=== PATIENT | female | born 1955 | race Caucasian/White ===

== ENCOUNTER 2017-10-29 20:14 | Inpatient (IN) | payer MEDICARE, OTHER ==
[~2017-10-29] VITALS: Ht 157.5 cm; Wt 85.8 kg
[2017-10-29 20:51] LABS: BASOPHILS ABSOLUTE AUTO 0.06 K/mm3 (0.00-0.23); BASOPHILS PERCENT AUTO 0 % (0-2); EOSINOPHILS ABSOLUTE AUTO 0.01 K/mm3 (0.00-0.68); EOSINOPHILS PERCENT AUTO 0 % (0-6); Hematocrit 50.1 % (33.0-51.0); Hemoglobin 16.8 g/dL (11.5-16.0); IMMATURE GRAN ABSOLUTE AUTO 0.61 K/mm3 (0.00-0.10); IMMATURE GRAN PERCENT AUTO 3 % (0-1); LYMPHOCYTES ABSOLUTE AUTO 0.83 K/mm3 (0.84-5.20); LYMPHOCYTES PERCENT AUTO 4 % (21-46); MONOCYTES ABSOLUTE AUTO 2.15 K/mm3 (0.16-1.47); MONOCYTES PERCENT AUTO 11 % (4-13); Mean Corpuscular HGB 38.4 pg (26.0-34.0); Mean Corpuscular HGB Conc 33.5 g/dL (31.5-36.5); Mean Corpuscular Volume 115 fL (80-100); Mean Platelet Volume 9.5 fL (9.1-12.4); NEUTROPHILS ABSOLUTE AUTO 15.64 K/mm3 (1.96-9.15); NEUTROPHILS PERCENT AUTO 81 % (41-73); Platelet Count 142 K/mm3 (150-400); RDW Coefficient Variation 15.5 % (11.7-14.2); RDW Standard Deviation 65.8 fL (35.1-46.3); Red Blood Cell Count 4.37 M/mm3 (3.80-5.20)
[2017-10-29 20:53] LABS: Source, Urine Catheter
[2017-10-29 21:00] LABS: Appearance, Urine Clear (Clear); Bilirubin, Urine Neg (Neg); Blood, Urine 3+ (Neg); Color, Urine Yellow (P-Yellow); Glucose Qualitative, Urine Neg (Neg); Ketones, Urine 1+ (Neg); Leukocyte Esterase, Urine Neg (Neg); Nitrite, Urine Neg (Neg); Protein, Urine 3+ (Neg); Urobilinogen, Urine NORM (Normal)
[2017-10-29 21:04] LABS: International Normalized Ratio 1.33
[2017-10-29 21:08] LABS: Red Blood Cells, Urine 0-2 /hpf (0-2)
[2017-10-29 21:09] LABS: Amorphous Mod (0-Heavy); Squamous Epithelial Cells Rare /hpf (Few)
[2017-10-29 21:10] LABS: Bacteria Few /hpf
[2017-10-29 21:11] LABS: Alanine Aminotransfer (ALT/SGP 20 U/L (12-78); Albumin, Blood 3.4 g/dL (3.4-5.0); Albumin/Globulin Ratio 0.8 (0.8-1.8); Alk Phos 71 U/L (50-136); Anion Gap 7 mmol/L (6-16); Aspartate Aminotrans (AST/SGOT 26 U/L (12-37); Bilirubin, Total 1.4 mg/dL (0.1-1.0); Blood Urea Nitrogen 31 mg/dL (8-24); CO2, Blood 29 mmol/L (21-32); Calcium, Blood 10.1 mg/dL (8.5-10.1); Chloride, Blood 101 mmol/L (98-108); Creatinine, Blood 1.07 mg/dL (0.40-1.00); Ethanol (Alcohol), Blood, Med <3 mg/dL; Globulin, Blood 4.1 g/dL (2.2-4.0); Glomerular Filtration Rate 55 (60-); Glucose, Blood 128 mg/dL (70-99); Potassium, Blood 4.3 mmol/L (3.5-5.5); Sodium, Blood 137 mmol/L (136-145); Total Protein, Blood 7.5 g/dL (6.4-8.2)
[2017-10-29 21:17] LABS: U Amphetamine Screen Not Detected; U Barbituate Screen Not Detected; U Benzodiazapine Screen Not Detected; U Cannabinoids Screen DETECTED; U Cocaine Screen Not Detected; U Methadone Screen Not Detected; U Methamphetamine Screen Not Detected; U Opiates Screen Not Detected; U Phencyclidine Screen Not Detected
[2017-10-29 21:18] LABS: U Buprenorphine Screen Not Detected; U Oxycodone Screen Not Detected; U Propoxyphene Screen Not Detected
[2017-10-29 22:51] LABS: PO2 Arterial 72.8 mmHg (80-100); pH Blood Arterial 7.43 (7.35-7.45)
[2017-10-30 06:17] LABS: Influenza A Negative (NEGATIVE); Influenza B Negative (NEGATIVE)
[2017-10-30 08:58] LABS: Hematocrit 46.5 % (33.0-51.0); Hemoglobin 15.3 g/dL (11.5-16.0); Mean Corpuscular HGB 38.2 pg (26.0-34.0); Mean Corpuscular HGB Conc 32.9 g/dL (31.5-36.5); Mean Corpuscular Volume 116 fL (80-100); Mean Platelet Volume 9.8 fL (9.1-12.4); Platelet Count 132 K/mm3 (150-400); RDW Coefficient Variation 15.2 % (11.7-14.2); RDW Standard Deviation 66.1 fL (35.1-46.3); Red Blood Cell Count 4.01 M/mm3 (3.80-5.20); White Blood Cell Count 20.85 K/mm3 (4.00-11.30)
[2017-10-30 09:37] LABS: BAND PERCENT MAN 24 % (0-8); BASOPHILS PERCENT MAN 1 % (0-2); EOSINOPHILS PERCENT MAN 0 % (0-6); LYMPHOCYTES ABSOLUTE MAN 0.83 K/mm3 (0.84-5.20); LYMPHOCYTES PERCENT MAN 4 % (21-46); METAMYELOCYTE ABSOLUTE MAN 0.83 K/mm3 (0.00-0.00); METAMYELOCYTE PERCENT MAN 4 % (0-0); MONOCYTES ABSOLUTE MAN 0.83 K/mm3 (0.16-1.47); MONOCYTES PERCENT MAN 4 % (4-13); NEUTROPHILS ABSOLUTE MAN 18.13 K/mm3 (1.96-9.15); SEG NEUTROPHILS PERCENT MAN 63 % (41-73); TOTAL CELLS COUNTED 100
[2017-10-30 09:59] LABS: Alanine Aminotransfer (ALT/SGP 17 U/L (12-78); Albumin, Blood 2.6 g/dL (3.4-5.0); Albumin/Globulin Ratio 0.7 (0.8-1.8); Alk Phos 55 U/L (50-136); Anion Gap 8 mmol/L (6-16); Aspartate Aminotrans (AST/SGOT 18 U/L (12-37); Blood Urea Nitrogen 34 mg/dL (8-24); CO2, Blood 27 mmol/L (21-32); Calcium, Blood 8.8 mg/dL (8.5-10.1); Chloride, Blood 105 mmol/L (98-108); Creatinine, Blood 0.97 mg/dL (0.40-1.00); Globulin, Blood 3.8 g/dL (2.2-4.0); Glomerular Filtration Rate >60 (60-); Glucose, Blood 159 mg/dL (70-99); Potassium, Blood 3.9 mmol/L (3.5-5.5); Sodium, Blood 140 mmol/L (136-145); Total Protein, Blood 6.4 g/dL (6.4-8.2)
[2017-10-31] MEDS ORDERED: LISI5 PO (02:35)
[2017-10-31] MEDS ORDERED: METF500 PO (02:36)
[2017-10-31] MEDS ORDERED: FURO20 PO (02:37)
[2017-10-31] MEDS ORDERED: SPIR25 PO (02:38)
[2017-10-31] MEDS ORDERED: LEVSOD75 PO ×2 (02:39)
[2017-10-31] MEDS ORDERED: ABAT250V (02:39)
[2017-10-31 04:28] LABS: Hematocrit 44.7 % (33.0-51.0); Hemoglobin 14.7 g/dL (11.5-16.0); Mean Corpuscular HGB 38.1 pg (26.0-34.0); Mean Corpuscular HGB Conc 32.9 g/dL (31.5-36.5); Mean Corpuscular Volume 116 fL (80-100); Mean Platelet Volume 9.9 fL (9.1-12.4); Platelet Count 121 K/mm3 (150-400); RDW Standard Deviation 64.9 fL (35.1-46.3); Red Blood Cell Count 3.86 M/mm3 (3.80-5.20); White Blood Cell Count 16.27 K/mm3 (4.00-11.30)
[2017-10-31 04:44] LABS: Anion Gap 7 mmol/L (6-16); Blood Urea Nitrogen 37 mg/dL (8-24); Bun/Creatinine Ratio 37.8 (12.0-20.0); CO2, Blood 27 mmol/L (21-32); Calcium, Blood 9.3 mg/dL (8.5-10.1); Chloride, Blood 104 mmol/L (98-108); Creatinine, Blood 0.98 mg/dL (0.40-1.00); Glomerular Filtration Rate >60 (60-); Glucose, Blood 176 mg/dL (70-99); Potassium, Blood 3.8 mmol/L (3.5-5.5); Sodium, Blood 138 mmol/L (136-145)
[2017-11-01 05:31] LABS: BASOPHILS ABSOLUTE AUTO 0.03 K/mm3 (0.00-0.23); BASOPHILS PERCENT AUTO 0 % (0-2); EOSINOPHILS PERCENT AUTO 0 % (0-6); Hematocrit 46.7 % (33.0-51.0); IMMATURE GRAN ABSOLUTE AUTO 0.29 K/mm3 (0.00-0.10); IMMATURE GRAN PERCENT AUTO 2 % (0-1); LYMPHOCYTES ABSOLUTE AUTO 0.31 K/mm3 (0.84-5.20); LYMPHOCYTES PERCENT AUTO 2 % (21-46); MONOCYTES ABSOLUTE AUTO 0.83 K/mm3 (0.16-1.47); MONOCYTES PERCENT AUTO 5 % (4-13); Mean Corpuscular HGB 37.1 pg (26.0-34.0); Mean Corpuscular HGB Conc 32.1 g/dL (31.5-36.5); Mean Corpuscular Volume 116 fL (80-100); Mean Platelet Volume 10.1 fL (9.1-12.4); NEUTROPHILS ABSOLUTE AUTO 15.87 K/mm3 (1.96-9.15); NEUTROPHILS PERCENT AUTO 92 % (41-73); NRBC ABSOLUTE 0.02 K/mm3 (0.00-0.02); NRBC Auto 0.1 /100 WBC (0.0-0.2); Platelet Count 141 K/mm3 (150-400); RDW Coefficient Variation 14.8 % (11.7-14.2); Red Blood Cell Count 4.04 M/mm3 (3.80-5.20); White Blood Cell Count 17.33 K/mm3 (4.00-11.30)
[2017-11-01 05:56] LABS: Bun/Creatinine Ratio 39.2 (12.0-20.0); Calcium, Blood 9.6 mg/dL (8.5-10.1); Potassium, Blood 4.2 mmol/L (3.5-5.5)
[2017-11-02] MEDS ORDERED: ACET325 PO (12:14)
[2017-11-02] MEDS ORDERED: Q-Tussin100 MG/5 M PO (12:16)
[2017-11-02] MEDS ORDERED: DOCU100 PO (12:17)
[2017-11-02] MEDS ORDERED: Ipratr-Albuterol3 ML PO (12:19)
[2017-11-02] MEDS ORDERED: LEVFLO500 PO (12:19)
== END 2017-11-02 12:35 | disposition home or self-care (01) | DRG 871 ==
LOC: ER 20:14 → ICUW 22:23 → ERHOLD 22:23 → ER 22:23 → ERHOLD 10-30 04:56 → ICUW 10-30 04:56 → MEDS 10-31 15:36 → ENPENDDIS 11-02 10:00 → MEDS 11-02 12:35
PROVIDERS: Emergency Medicine; Hospitalist; Internal Medicine; Physician Assistant
PROC: 05HM33Z Insertion of Infusion Device into Right Internal Jugular Vein, Percutaneous Approach (ICD-10-PCS; principal; 2017-10-30)
PROC: B543ZZA Ultrasonography of Right Jugular Veins, Guidance (ICD-10-PCS; 2017-10-30)
DX: A41.9 Sepsis, unspecified organism (principal); R65.21 Severe sepsis with septic shock; J96.01 Acute respiratory failure with hypoxia; J18.9 Pneumonia, unspecified organism; G93.40 Encephalopathy, unspecified; J44.1 Chronic obstructive pulmonary disease with (acute) exacerbation; J44.0 Chronic obstructive pulmonary disease with (acute) lower respiratory infection; I50.9 Heart failure, unspecified; E11.22 Type 2 diabetes mellitus with diabetic chronic kidney disease; E66.9 Obesity, unspecified
CPT/HCPCS: 36415; 36556; 36600; 51701; 51702; 70450; 71045; 80048; 80053; 81001; 82803; 82947; 83605; 83880; 85025; 85027; 85610; 85730; 87040; 87070; 87086; 87205; 87804; 93005; 93010; 93306; 94640; 94660; 94667; 94760; 94761; 96361; 96365; 96367; 96375; 99285; C1751; G0480; J0456; J0696; J1650; J1956; J2310; J2930; J7030; J7050; J7060

== ENCOUNTER 2018-08-11 05:21 | Observation (INO) | payer MEDICARE, OTHER ==
[~2018-08-11] VITALS: Ht 160 cm; Wt 80.0 kg
[~2018-08-11 05:21] MED LIST: ABAT250V; ACET325 PO; ALBU90OI INH; ANORO ELLIPTA1 EACH INH; ATOR10 PO; Aspirin EC81 MG PO; DOCU100 PO; FURO20 PO; Ipratr-Albuterol3 ML PO; LEVFLO500 PO; LEVSOD75 PO; LISI5 PO; METF500 PO; Q-Tussin100 MG/5 M PO; SPIR25 PO
--- NOTE | 2018-08-11 12:03 | NUR ---
10cc air removed from R wrist TR Band. -bleeding or swelling. Pressure drng and 5lbs wt placed on R groin area r/t swelling.
--- NOTE | 2018-08-11 12:50 | NUR ---
UPON PT USING BEDPAN, REPORTS INCREASING PAIN AT R GROIN SITE. PRESSURE DSG AND WEIGHT REMOVED FROM SITE. LARGE HEMATOMA GREATER THAN 10CM. DIRECT MANAUL PRESSURE BEING HELD. NO EXTERNAL BLEEDING NOTED. DR DENNIS TO ROOM, NEW ORDERS IN PLACE FOR FEM STOP AND FENTANYL IV. VS REMAIN STABLE. WILL CONTINUE TO MONITOR CLOSELY.
--- NOTE | 2018-08-11 13:31 | NUR ---
PT WITH R FEM STOP IN PLACE. TOLERATING WELL. VSS. PT REPORTS,"IT FEELS MUCH BETTER NOW" CALL LIGHT WITHIN REACH.
--- NOTE | 2018-08-11 13:53 | NUR ---
UPDATED PT BROTHER STEPHEN IN REGARDS TO BEING ADMITTED OVERNIGHT. PT RESTING COMFORTABLY. VSS. NADN. DENIES NEEDS. CALL LIGHT WITHIN REACH. AWAITING ROOM ASSIGNMENT AT THIS TIME.
--- NOTE | 2018-08-11 13:54 | NUR ---
FULL REPORT TO MAIDA FAGAN RN TO ASSUME CARE.
--- NOTE | 2018-08-11 15:24 | NUR ---
FEMALE PATIENT BROUGHT BY [facility] TO ICU 9. USED RICHARDSON MOVING SHEET USED TO PLACE PATIENT ON ICU BED. LARGE ECCYMOTIC AREA TO RIGHT GROIN. AREA MARKED WITH SHARPEE MARKER. O2 2L NC ON. PAT WEARS 2L AT NIGHT WITH HER BIPAP. LOG ROLLED ON TO SIDE AND BEDPAN PLACED. GOOD VOID 400ML. LUNGS EXTREMELY WHEEZY T/O. RT GAVE UDN RX. WATCHING GROIN AREA WITH EACH SET OF V/S. PATIENT EATING A FINGERFOOD CARDIAC DIET.
--- NOTE | 2018-08-11 15:50 | NUR ---
DR DENNIS IN TO SEE PATIENT POST ULTRASOUND OF R GROIN HEMATOMA, ORDERD FENTANYL IV 25 MCG Q 2 HRS PRN, KEEP FEMSTOP OFF AT THIS TIME, OK TO TRANSFER TO ICU FOR CONTINUED CLOSE MONITORING. GAVE PT 25 MCG FENTANYL WITH TIME CHARTED IN 'S NOTES. TRANSFERED TO ICU 9, PT SUPINE, VS STABLE, R GROIN HEMATOMA VIEWED AND MARKED BY JAMIE EQUIP TECH WITH REPORT GIVEN.
[2018-08-11 16:17] LABS: Hematocrit 40.5 % (33.0-51.0); Hemoglobin 13.1 g/dL (11.5-16.0); Mean Corpuscular HGB 35.7 pg (26.0-34.0); Mean Corpuscular HGB Conc 32.3 g/dL (31.5-36.5); Mean Corpuscular Volume 110 fL (80-100); Mean Platelet Volume 10.6 fL (9.1-12.4); Platelet Count 163 K/mm3 (150-400); RDW Coefficient Variation 13.6 % (11.7-14.2); RDW Standard Deviation 55.5 fL (35.1-46.3); Red Blood Cell Count 3.67 M/mm3 (3.80-5.20); White Blood Cell Count 10.99 K/mm3 (4.00-11.30)
--- NOTE | 2018-08-11 18:47 | NUR ---
ATE 1/2 OF DINNER. GROIN ECCYMOSIS HAS NOT INCREASED. COMP OF SEVERE BACK PAIN. LOG ROLLED AND ON BEDPAN AGAIN TO VOID.RIGHT TR BAND ATTEMPT HAS NO BLEEDING OR ECCYMOSIS NOTED. LOOSE MOIST SMOKERS COUGH. RESP THERAPY HAS NOT YET SET PATIENT UP FOR CPAP TONIGHT.
--- NOTE | 2018-08-11 19:10 | NUR ---
PATIENT LOG ROLLED TO LEFT SIDE AND ON BEDPAN. NOTED THAT MORE BRUISING ON LABIA. WHEN TURNED NOTED MORE BULGING OF ECCYMOTIC AREAS. FEMOSTOP APPLIED WITH STARTING PRESSURE OF 80. GOOD SPO2 ON RIGHT FOOT.
--- NOTE | 2018-08-11 20:00 | NUR ---
After bedside report, Cristina RN notified Dr Hughes that femstop was again in place to R groin, pt has lg purple eccymosis now extending out of marked area & w firm hematoma. Pt is co back pain & R groin pain. SBP is 80's. Orders rec'd for fluid bolus & CT Scan. Pt is med w fentanyl for pain & prepped for imaging.
--- NOTE | 2018-08-11 22:30 | NUR ---
Dr Hughes in to see pt, discussed CT results. Pt has no sign of bleeding, & Femstop pressure has been released, just leaving femstop in place. BP has improved. Pt w harsh cough, occas productive of clear/white sputum. Pt states she quit smoking 4 days ago, does not want or need nicotine patch. Will cont to monitor. Will med for pain as ordered. Pt has call light in reach.
[2018-08-12 03:51] LABS: Hemoglobin 12.6 g/dL (11.5-16.0); Mean Corpuscular HGB 35.9 pg (26.0-34.0); Mean Corpuscular HGB Conc 32.3 g/dL (31.5-36.5); Mean Corpuscular Volume 111 fL (80-100); Mean Platelet Volume 10.3 fL (9.1-12.4); Platelet Count 161 K/mm3 (150-400); RDW Coefficient Variation 13.5 % (11.7-14.2); RDW Standard Deviation 56.2 fL (35.1-46.3); Red Blood Cell Count 3.51 M/mm3 (3.80-5.20); White Blood Cell Count 8.72 K/mm3 (4.00-11.30)
[2018-08-12 04:15] LABS: Bun/Creatinine Ratio 27.2 (12.0-20.0); Creatinine, Blood 1.03 mg/dL (0.40-1.00); Magnesium, Blood 1.8 mg/dL (1.6-2.4); Potassium, Blood 4.8 mmol/L (3.5-5.5)
--- NOTE | 2018-08-12 05:00 | NUR ---
Pt med w fentanyl x4, tonoc. Femstop off since 2229. R groin wo any bleeding from site, very bruised, but is soft. Pt with only SB assist to toilet to void. Pt did own heaven care. Back to bed wo difficulty. R groin site cont clear. Pt states she feels so much better. HOB is elevated 30*. R radial site is clear w bandaid in place. Expect pt likely to be discharged today. VSS, cont SR w rare ectopic.
--- NOTE | 2018-08-12 08:48 | NUR ---
Pt ref a bed bath. Said she was given a warm wash cloth and she cleaned as much as she wants to today. She will wait and take shower tomorrow per order no shower today.
--- NOTE | 2018-08-12 10:03 | NUR ---
AWAKE ALERT. DR DENNIS IN TO SEE PAT. WILL BE DISCHARGED AFTER SHE RECEIVES A VANCOMYCIN IVPB. LOOSE MOIST COUGH. HAS COARSE RONCHI T/O. STOPPED SMOKING 5 DAYS AGO AND IS CLEARING HER LUNGS. DISCHARGE INSTRUCTION REVIEWED. BROTHER HERE. IV DCED. RIGHT GROIN HEMATOMAMUCH SOFTER AND FLATTER THAN LAST NIGHT. PLACED IN WHEEL CHAIR AND TAKEN TO [employer] CAR.
== END 2018-08-12 10:15 | disposition home or self-care (01) ==
LOC: MHTC 05:21 → ICUW 15:25 → MHTC 16:00 → ICUW 16:30
PROVIDERS: ADMIT Internal Medicine Cardiovascular Disease
DX: I97.630 Postprocedural hematoma of a circulatory system organ or structure following a cardiac catheterization (principal); J44.9 Chronic obstructive pulmonary disease, unspecified; I27.20 Pulmonary hypertension, unspecified; I12.9 Hypertensive chronic kidney disease with stage 1 through stage 4 chronic kidney disease, or unspecified chronic kidney disease; E11.22 Type 2 diabetes mellitus with diabetic chronic kidney disease; N18.9 Chronic kidney disease, unspecified; M19.90 Unspecified osteoarthritis, unspecified site; G47.33 Obstructive sleep apnea (adult) (pediatric); E03.9 Hypothyroidism, unspecified; Z99.89 Dependence on other enabling machines and devices; Z79.82 Long term (current) use of aspirin; Z79.899 Other long term (current) drug therapy; Z87.891 Personal history of nicotine dependence; Z88.5 Allergy status to narcotic agent
CPT/HCPCS: 36415; 74176; 80048; 82947; 83735; 85027; 85347; 86850; 86900; 86901; 93460; 93926; 94640; 96374; 96375; 96376; 99152; 99153; C1769; C1894; G0378; J1644; J2250; J2270; J3010; J3370; J7030; Q9967

== ENCOUNTER 2020-09-23 10:58 | Inpatient (IN) | payer MEDICARE, OTHER ==
[~2020-09-23] VITALS: Ht 160 cm; Wt 83.1 kg
[~2020-09-23 10:58] MED LIST changes: -ALBU90OI INH; -ATOR10 PO; -FURO20 PO; -LISI5 PO; -METF500 PO
[2020-09-23 12:07] LABS: BASOPHILS ABSOLUTE AUTO 0.04 K/mm3 (0.00-0.23); BASOPHILS PERCENT AUTO 1 % (0-2); EOSINOPHILS ABSOLUTE AUTO 0.09 K/mm3 (0.00-0.68); EOSINOPHILS PERCENT AUTO 2 % (0-6); Hematocrit 45.5 % (33.0-51.0); Hemoglobin 14.6 g/dL (11.5-16.0); IMMATURE GRAN ABSOLUTE AUTO 0.02 K/mm3 (0.00-0.10); IMMATURE GRAN PERCENT AUTO 0 % (0-1); LYMPHOCYTES ABSOLUTE AUTO 0.93 K/mm3 (0.84-5.20); LYMPHOCYTES PERCENT AUTO 15 % (21-46); MONOCYTES ABSOLUTE AUTO 1.02 K/mm3 (0.16-1.47); MONOCYTES PERCENT AUTO 17 % (4-13); Mean Corpuscular HGB 36.2 pg (26.0-34.0); Mean Corpuscular HGB Conc 32.1 g/dL (31.5-36.5); Mean Corpuscular Volume 113 fL (80-100); Mean Platelet Volume 9.7 fL (9.1-12.4); NEUTROPHILS ABSOLUTE AUTO 3.93 K/mm3 (1.96-9.15); NEUTROPHILS PERCENT AUTO 65 % (41-73); Platelet Count 160 K/mm3 (150-400); RDW Coefficient Variation 15.1 % (11.7-14.2); RDW Standard Deviation 63.6 fL (35.1-46.3); Red Blood Cell Count 4.03 M/mm3 (3.80-5.20); White Blood Cell Count 6.03 K/mm3 (4.00-11.30)
[2020-09-23 12:26] LABS: Albumin/Globulin Ratio 0.9 (0.8-1.8); Bilirubin, Total 0.9 mg/dL (0.1-1.0); Bun/Creatinine Ratio 28.3 (12.0-20.0); Calcium, Blood 9.5 mg/dL (8.5-10.1); Creatinine, Blood 0.99 mg/dL (0.40-1.00); Globulin, Blood 3.5 g/dL (2.2-4.0); Potassium, Blood 4.9 mmol/L (3.5-5.5); Total Protein, Blood 6.5 g/dL (6.4-8.2); Troponin I 0.034 ng/mL (0.000-0.040)
[2020-09-23] MEDS ORDERED: METF500 PO (13:26)
[2020-09-23] MEDS ORDERED: Prinivil10 MG PO (13:26)
[2020-09-23] MEDS ORDERED: ATOR20 PO (13:27)
[2020-09-23] MEDS ORDERED: ANORO ELLIPTA1 EACH INH (13:27)
[2020-09-23] MEDS ORDERED: ALBU90OI INH (13:28)
[2020-09-23] MEDS ORDERED: FURO20 PO (13:29)
[2020-09-23] MEDS ORDERED: Aspir 8181 MG PO (13:29)
[2020-09-23] MEDS ORDERED: LEVSOD75 PO (13:30)
[2020-09-23 13:51] LABS: Creatine Kinase MB 3.8 ng/mL (0.0-3.6); Creatine Kinase MB Index 5.2 (0.0-4.0)
[2020-09-23 14:13] LABS: Source, Urine Clean Catch
[2020-09-23 14:22] LABS: Appearance, Urine Clear (Clear); Bilirubin, Urine Neg (Neg); Blood, Urine Neg (Neg); Color, Urine Yellow (P-Yellow); Glucose Qualitative, Urine Neg (Neg); Ketones, Urine Neg (Neg); Leukocyte Esterase, Urine Neg (Neg); Nitrite, Urine Neg (Neg); Protein, Urine Neg (Neg); Specific Gravity, Urine 1.015 (1.003-1.022); Urobilinogen, Urine NORM (Normal)
--- NOTE | 2020-09-23 17:04 | NUR ---
ECHOCARDIOGRAM COMPLETE
[2020-09-23 18:50] LABS: Influenza A, PCR NEGATIVE (NEGATIVE); Influenza B, PCR NEGATIVE (NEGATIVE); Resp Syncytial Virus, PCR NEGATIVE (NEGATIVE); SARS-Cov-2 (COVID-19) PCR, MMC NEGATIVE (NEGATIVE)
--- NOTE | 2020-09-23 20:06 | NUR ---
2005 PT ADMITTED TO ROOM 361 PER WHEELCHAIR FROM ER; REPORT RECEIVED FROM SARA DENIS; PT WEARING O2 AT 4L/M PER NASAL CANNULA; DENIES PAIN OR NAUSEA.
--- NOTE | 2020-09-24 03:12 | NUR ---
SHIFT SUMMARY: 64 Y/O OBESE FEMALE HAD RESTLESS NIGHT AT TIMES WITH FREQUENT IMPULSIVE USAGE OF BSC TO VOID; PT VERY WEAK AND DECONDITIONED WITH ABILITY TO STAND AND TRANSFER VERY WEAK REQUIRING ONE STAFF AT ALL TIMES; PT WEARING O2 AT 4L/M PER NASAL CANNULA WITH LUNG SOUNDS DIMINISHED THROUGHOUT WITH OCCASIONAL NON PRODUCTIVE COUGH; ALERT AND ORIENTED X 3, ABLE TO FOLLOW SIMPLE VERBAL COMMANDS; BED ALARM APPLIED FOR SAFETY, BED LOW POSITION WITH CALL LIGHT AT SIDE.
[2020-09-24 04:33] LABS: Hematocrit 43.9 % (33.0-51.0); Hemoglobin 13.9 g/dL (11.5-16.0); Mean Corpuscular HGB 35.8 pg (26.0-34.0); Mean Corpuscular HGB Conc 31.7 g/dL (31.5-36.5); Mean Corpuscular Volume 113 fL (80-100); Mean Platelet Volume 9.9 fL (9.1-12.4); Platelet Count 150 K/mm3 (150-400); RDW Coefficient Variation 15.3 % (11.7-14.2); RDW Standard Deviation 63.7 fL (35.1-46.3); Red Blood Cell Count 3.88 M/mm3 (3.80-5.20); White Blood Cell Count 4.52 K/mm3 (4.00-11.30)
[2020-09-24 04:59] LABS: Magnesium, Blood 1.3 mg/dL (1.6-2.4); Troponin I 0.026 ng/mL (0.000-0.040)
[2020-09-24 05:00] LABS: Albumin, Blood 2.8 g/dL (3.4-5.0); Albumin/Globulin Ratio 0.9 (0.8-1.8); Bilirubin, Total 0.8 mg/dL (0.1-1.0); Bun/Creatinine Ratio 28.1 (12.0-20.0); Calcium, Blood 9.3 mg/dL (8.5-10.1); Globulin, Blood 3.1 g/dL (2.2-4.0); Potassium, Blood 4.3 mmol/L (3.5-5.5); Thyroid Stimulating Hormone 1.79 uIU/mL (0.360-4.800); Total Protein, Blood 5.9 g/dL (6.4-8.2)
--- NOTE | 2020-09-24 17:29 | NUR ---
SHIFT SUMMARY- PT IS ALERT, PLESANT AND COOPERATIVE. SHE IS FORGETFUL AT TIMES AND SEVERAL TIMES THIS SHIFT WAS SHOUTING IN THE ROOM BUT DENIED NEEDING ANYTHING WHEN THE NURSE ASKED IF SHE WAS OK. SPOKE WITH HER PRIMAY CARE PROVIDER ON THE PHONE. THE PROVIDER REPORTED THAT SHE HAD A FALL AT HOME, PTS RECENTLY HAD BACK SURGERY, AND THAT THE PT HAD BEEN DRINKING REGULARY RECENTLY. RELAYED THIS TO DR. CRAIG. CIWAS ARE NOW IN PLACE AND STABLE. SHE WAS UP TO THE CHAIR FOR MUCH OF THIS SHIFT. CURRENTLY SHE IS IN BED IN THE LOW POSITION AND CALL LIGHT WITHIN REACH.
[2020-09-25 05:13] LABS: Hematocrit 45.6 % (33.0-51.0); Hemoglobin 14.5 g/dL (11.5-16.0); Mean Corpuscular HGB Conc 31.8 g/dL (31.5-36.5); Mean Corpuscular Volume 113 fL (80-100); Mean Platelet Volume 10.1 fL (9.1-12.4); Platelet Count 148 K/mm3 (150-400); RDW Coefficient Variation 15.1 % (11.7-14.2); RDW Standard Deviation 64.7 fL (35.1-46.3); Red Blood Cell Count 4.03 M/mm3 (3.80-5.20); White Blood Cell Count 4.82 K/mm3 (4.00-11.30)
--- NOTE | 2020-09-25 05:13 | NUR ---
SHIFT SUMMARY PT HAS RESTED OFF AND ON T/O THE NIGHT IN THE RECLINER. VITALS ARE STABLE. PT A/OX3 AT THE BEGINNING OF THE SHIFT BUT BECAME MORE CONFUSED THE NIGHT PROGRESSED. PT HAS ETOH HX, CIWA'S PERFORMED THIS SHIFT. WITH LASTEST SCORE BEING 9 WHICH IS A HIGHER NUMBER FOR PT SINCE ASSESSMENTS BEGAN. PT HAS BECOME MORE RESTLESS, AND AGITATED. YELLING OUT AND TALKING TO HERSELF IN THE ROOM. WHEN APPROACHED, AND ASKED ABOUT THE HALLUCINATIONS SHE DENIES HAVING THEM AND STATES THAT SHE IS NOT TALKING TO ANYMORE. MILD TREMORS, RUBI THIS SHIFT THAT WAS RELIEVED WITH TYLENOL. SHE DENIES N/V. PT CONTINUES TO REFUSED HER CPAP AT NIGHT. WEARS O2 AT 6L TO KEEP SATS UP WHILE ASLEEP PER RT RECOMMENDATIONS. PT CONTINUES TO BE A 1PA TO THE BATHROOM. IMPULSIVE AT TIMES. BED ALARM AND CHAIR ALARM IN PLACE. NO OTHER ACUTE CHANGES TO REPORT. BED IN LOWEST POSITION, CALL LIGHT WITHIN REACH.
[2020-09-25 05:59] LABS: Bun/Creatinine Ratio 23.8 (12.0-20.0); Creatinine, Blood 1.26 mg/dL (0.40-1.00); Magnesium, Blood 1.6 mg/dL (1.6-2.4); Potassium, Blood 4.2 mmol/L (3.5-5.5)
--- NOTE | 2020-09-25 17:32 | NUR ---
SHIFT SUMMARY- PT IS ALERT, PLESANT AND COOPERATIVE. SHE IS EATING AND DRINKING WELL. HER CIWAS HAVE BEEN STABLE THIS SHIFT. SHE IS VOIDING WELL. SHE IS IMPULSIVE AND WILL CALL OUT OR GET UP SETTING OFF THE BED ALARM. CURRENTLY SHE IS IN THE CHAIR SLEEPING, CHAIR ALARM IS ON AND CALL LIGHT IS WITHIN REACH.
--- NOTE | 2020-09-26 02:48 | NUR ---
Patient found sitting in chair in room with 02 removed, and feet no longer elevated. 02 sat 75%on room air. 02 was replaced and increased from 5 liters NC to 10L and RT was called to eval and treat. Nebulizer was given via mask, and 02 is currently being titrated down by RT. Currently at 8 LPM. Primary RN arrived and took over RN position. Patient tolerating tx well. Jo Ann Mars RN
[2020-09-26 03:29] LABS: PCO2 Arterial 88.6 mmHg (35-45); PO2 Arterial 58.8 mmHg (80-100); pH Blood Arterial 7.27 (7.35-7.45)
--- NOTE | 2020-09-26 04:06 | NUR ---
TRANSFER HIGHER LEVEL OF CARE, INCREASED O2 NEEDS, HYPOXIA PT HAS RESTED OFF AND ON T/O THE NIGHT OCCASIONALLY ANXIOUS BUT WITHOUT MUCH EVENT. A/OX2-3 WITH MILD CONFUSION UNCHANGED FROM PRIOR ASSESSMENTS. HOWEVER, AROUND 0300 THIS AM, PT AWOKE RESTLESS AND AGITATED, MORE CONFUSED AND UNABLE TO GET COMFORTABLE IN HER CHAIR. PT WEARS 4L O2 AT BASELINE, BUT HAS INCREASED TO 6L DURING HER STAY IN THE HOSPITAL. PT HAS HX OF HEAVY ETOH USE. CIWA'S PER PROTOCOL, MEDS PER ORDERS. CIWAS' ARE 9 AND UNDER ON AVERAGE UNTIL 0300 WHEN PT SCORED A 16 DUE TO RESTLESSNESS, AGITATION, AND AUDITORY HALLUCINATIONS. PT DOES NOT KEEP OXYGEN IN MOUTH WHILE ASLEEP AND CONSTANTLY REMOVES. SHE HAS REFUSED CPAP AT NIGHT DURING HER ADMISSION PER RT, AND HAS REFUSED TO WEAR BIOX. SATS ARE WNL WHILE AWAKE, HOWEVER WHILE RESTING SHE DESATS TO MID TO UPPER 80'S ON AVERAGE WITH OXYGEN REMOVED. PT ALSO MOUTH BREATHES WHILE SLEEPING. PT O2 SPOT CHECKED AT 0300 AND SHE WAS 75% AFTER REMOVING HER O2. LUNGS ARE WHEEZY UPON AUSCULATION AND RESP ARE LABORED. RESP CARE CALLED TO EVALUATE PT. THEY RECOMMENDED AN ABG. DR. STORM CALLED A SHORT TIME AFTER AND ABG WAS ORDERED. ABG DONE, PH AND PCO2 CRITICAL. RESULTS IMMEDIATLY CALLED TO DR. STORM AT 0342. RECEIVED ORDERS FOR V60 BIPAP WITH TRANSFER TO PCU. CONSERVATION OF RESOURCES COMMISSIONERSARA MORGAN AWARE OF PT SITUATION AND NEED FOR TRANSFER. KEVIN MARTINEZ NURSING VEGETABLES COOK MADE AWARE AND IS ARRANGING BED FOR TRANSFER. REPORT CALLED TO ENLISTED ADVISORSARA OLVERA AROUND 0420. PT TRANSFERRED TO ICU AT 0440 AFTER ROOM WAS MADE READY. ASIDE FROM O2 SATS, VITALS HAVE REMAINED STABLE. PT TRANSFERRED TO ICU PCU STATUS WITHOUT EVENT, BELONGINGS IN PLACE.
--- NOTE | 2020-09-26 05:00 | NUR ---
PT ARRIVED TO ICU-16 PCU STATUS, BIPAP IN PLACE W 22/8, BUR 18, FIO2 OF 35%. PT WANTS TO REMOVE MASK, ENCOURAGED TO KEEP IN PLACE. PT W IRREG RR AND VT, MUCH 1200CC. LUNGS ARE DIM IN BASES, NO WHEEZES. ATTENDS IN PLACE, NO VOID. PT NOTED W VERY RED INNER THIGHS, GROIN TO KNEES. STASIS CHANGES NOTED TO LOWER LEGS, STRONG BILAT PEDAL PULSES. PT NOTED W BILAT TREMORS, PT STATES THIS IS NEW FOR HER. DENIES THAT SHE DRINKS CURRENTLY, BUT STATES OCCAS, WILL NOT VERIFY QUANTITY. BED ALARM PLACED FOR PT SAFETY, BED LOW & CALL LIGHT IN REACH.
--- NOTE | 2020-09-26 05:12 | NUR ---
SHIFT SUMMARY PT DID FAIRLY WELL FIRST HALF OF SHIFT A/OX2-3 WITH VERY MILD CONFUSION. SATS WNL WHILE ON 6L O2. HOWEVER DURING SECOND HALF OF SHIFT PT BECAME MORE RESTLESS AND WOULD NOT KEEP HER O2 IN PLACE DESPITE INSTRUCTION. SATS NO LONGER BEING MAINTAINED ON 6L O2 WHILE SLEEPING AND DROPPING IN THE MID TO UPPER 80'S. DR. FLORES CALLED AND NOTFIED AND PT TRANSFER TO ICU PCU STATUS WITH BIPAP. BP AND HR STABLE T/O SHIFT. PT NSR ON TELE. BG STABLE. LUNGS WHEEZY UPON AUSCULATION, DR. STORM MADE AWARE THAT PT WAS NOT RECEIVING ANY STEROIDS DURING HER STAY, HE STATES THAT HE WOULD REVIEW PT CHART. PT TRANSFERRED TO ICU WITHOUT EVENT.
--- NOTE | 2020-09-26 06:00 | NUR ---
PT HOLLERING OUT, WANTS OUT OF BED, WANTS TO REMOVE MASK. FIO2 INCREASED TO 40%. EXPLAINED TO PT NEED TO WEAR MASK TO IMPROVE OXYGENATION - AVOID INTUBATION. PT IS MILDLY CONFUSED, SL ANXIOUS, CONCERN TO INCREASE CONFUSION W ATIVAN. CONT TO MONITOR. BED ALARM REMAINS ON. REPORT TO DAYSHIFT.
[2020-09-26 08:54] LABS: BASOPHILS ABSOLUTE AUTO 0.03 K/mm3 (0.00-0.23); BASOPHILS PERCENT AUTO 1 % (0-2); EOSINOPHILS ABSOLUTE AUTO 0.08 K/mm3 (0.00-0.68); EOSINOPHILS PERCENT AUTO 2 % (0-6); Hemoglobin 13.7 g/dL (11.5-16.0); IMMATURE GRAN ABSOLUTE AUTO 0.03 K/mm3 (0.00-0.10); IMMATURE GRAN PERCENT AUTO 1 % (0-1); LYMPHOCYTES ABSOLUTE AUTO 0.85 K/mm3 (0.84-5.20); LYMPHOCYTES PERCENT AUTO 16 % (21-46); MONOCYTES ABSOLUTE AUTO 0.94 K/mm3 (0.16-1.47); MONOCYTES PERCENT AUTO 17 % (4-13); Mean Corpuscular HGB 35.7 pg (26.0-34.0); Mean Corpuscular HGB Conc 31.9 g/dL (31.5-36.5); Mean Corpuscular Volume 112 fL (80-100); Mean Platelet Volume 9.7 fL (9.1-12.4); NEUTROPHILS ABSOLUTE AUTO 3.47 K/mm3 (1.96-9.15); NEUTROPHILS PERCENT AUTO 64 % (41-73); Platelet Count 156 K/mm3 (150-400); RDW Coefficient Variation 15.1 % (11.7-14.2); RDW Standard Deviation 63.4 fL (35.1-46.3); Red Blood Cell Count 3.84 M/mm3 (3.80-5.20)
[2020-09-26 09:18] LABS: Albumin, Blood 2.9 g/dL (3.4-5.0); Albumin/Globulin Ratio 0.9 (0.8-1.8); Bilirubin, Total 0.7 mg/dL (0.1-1.0); Bun/Creatinine Ratio 27.1 (12.0-20.0); Globulin, Blood 3.3 g/dL (2.2-4.0); Potassium, Blood 4.1 mmol/L (3.5-5.5); Total Protein, Blood 6.2 g/dL (6.4-8.2); Troponin I 0.023 ng/mL (0.000-0.040)
[2020-09-26 09:21] LABS: PCO2 Arterial 76 mmHg (35-45); PO2 Arterial 187 mmHg (80-100); pH Blood Arterial 7.31 (7.35-7.45)
--- NOTE | 2020-09-26 10:00 | NUR ---
REPORT GIVEN TO DONELL RUIZ IN PCU. PATIENT ALERT AND ORIENTED TO SELF/ SURROUNDINGS AT THIS TIME, BIPAP IN PLACE. CIWA SCORE OF 11, MEDICATED PER EMAR.
[2020-09-26 10:07] LABS: Influenza A, PCR NEGATIVE (NEGATIVE); Influenza B, PCR NEGATIVE (NEGATIVE); Resp Syncytial Virus, PCR NEGATIVE (NEGATIVE); SARS-Cov-2 (COVID-19) PCR, MMC NEGATIVE (NEGATIVE)
--- NOTE | 2020-09-26 10:20 | NUR ---
ASSUMED CARE PT TRANSFERRED FROM ICU TO PCU 13. PT ALERT AND ORIENTED TO SELF AND PLACE. VS STABLE. O2 SATS REMAIN ABOVE 90% ON BIPAP WITH FIO2 OF 35%. RR 20-30 AT THIS TIME. PT PLACED ON BED CORDOBA TO URINATE. REDNESS NOTED TO INNER THIGHS BILATERALLY. PT ORIENTED TO ROOM. BED ALARM ON FOR SAFETY. WILL CONTINUE TO MONITOR CLOSELY.
[2020-09-26 17:40] LABS: Anion Gap 1 mmol/L (6-16); Blood Urea Nitrogen 26 mg/dL (8-24); Bun/Creatinine Ratio 26.6 (12.0-20.0); CO2, Blood 41 mmol/L (21-32); Calcium, Blood 9.4 mg/dL (8.5-10.1); Chloride, Blood 96 mmol/L (98-108); Creatinine, Blood 0.98 mg/dL (0.40-1.00); Glomerular Filtration Rate >60 (60-); Glucose, Blood 73 mg/dL (70-99); Potassium, Blood 3.9 mmol/L (3.5-5.5); Sodium, Blood 138 mmol/L (136-145)
--- NOTE | 2020-09-26 18:46 | NUR ---
SHIFT SUMMARY PT ALERT AND ORIENTED TO SELF, AND PLACE. PT CONFUSED THROUGHOUT SHIFT AND YELLING OUT AT TIMES, PULLING AT HER BIPAP AND LINES. O2 SATS HAVE REMAINED ABOVE 90% ON BIPAP WITH FIO2 OF 35%. PT HAD SMALL BREAKS ON 5L NC FOR ORAL CARE AND MEALS. BP STABLE. HR NSR. PT DENIES ANY PAIN. PT MEDICATED FOR CIWA NEEDED THAT RANGED FROM 8-14. PT HAD BED BATH THIS SHIFT. BED ALARM ON FOR SAFETY. WILL CONTINUE TO MONITOR AND REPORT TO ONCOMING RN. CALL LIGHT IN REACH.
[2020-09-27 05:20] LABS: BASOPHILS ABSOLUTE AUTO 0.03 K/mm3 (0.00-0.23); BASOPHILS PERCENT AUTO 1 % (0-2); EOSINOPHILS PERCENT AUTO 2 % (0-6); Hematocrit 41.9 % (33.0-51.0); Hemoglobin 13.4 g/dL (11.5-16.0); IMMATURE GRAN ABSOLUTE AUTO 0.01 K/mm3 (0.00-0.10); IMMATURE GRAN PERCENT AUTO 0 % (0-1); LYMPHOCYTES ABSOLUTE AUTO 0.69 K/mm3 (0.84-5.20); LYMPHOCYTES PERCENT AUTO 13 % (21-46); MONOCYTES ABSOLUTE AUTO 0.75 K/mm3 (0.16-1.47); MONOCYTES PERCENT AUTO 14 % (4-13); Mean Corpuscular HGB 35.4 pg (26.0-34.0); Mean Corpuscular Volume 111 fL (80-100); Mean Platelet Volume 9.9 fL (9.1-12.4); NEUTROPHILS ABSOLUTE AUTO 3.86 K/mm3 (1.96-9.15); NEUTROPHILS PERCENT AUTO 71 % (41-73); Platelet Count 153 K/mm3 (150-400); RDW Coefficient Variation 14.9 % (11.7-14.2); RDW Standard Deviation 61.4 fL (35.1-46.3); Red Blood Cell Count 3.78 M/mm3 (3.80-5.20); White Blood Cell Count 5.44 K/mm3 (4.00-11.30)
--- NOTE | 2020-09-27 05:36 | NUR ---
SHIFT SUMMARY PATIENT IRRITABLE AND EASILY AGITATED THROUGHOUT THE NIGHT. PATIENT MEDICATED PER EMAR AND PER CIWA SCORES. PATIENT WILL YELL OUT "I GOTTA PEE!" OR "I WANT TO GET UP AND GET OUT OF HERE!" HOWEVER, PATIENT IS ONLY ORIENTED TO SELF AND THAT SHE IS AT A HOSPITAL RIGHT NOW. PATIENT APPEARS TO BE UNABLE TO ANSWER FURTHER ORIENTATION QUESTIONS AT THIS TIME. PATIENT VERY RESTLESS AND FIDGTY WHEN AWAKE, PATIENT VERY ANGRY WHEN AWAKE. PATIENT HAS APPEARED TO SLEEP WELL THROUGHOUT MOST OF THE NIGHT WITH THE BIPAP IN PLACE. THE BIPAP APPEARS TO MAKE PATIENT VERY AGITATED. PATIENT GIVEN SEVERAL SHORT BREAKS FROM BIPAP. PATIENT CURRENTLY APPEARS TO BE ASLEEP, RESPIRATIONS EVEN AND UNLABORED, BIPAP IN PLACE. BED ALARM ON. WILL CONTINUE CURRENT PLAN OF CARE AND REPORT TO ONCOMING RN.
[2020-09-27 05:44] LABS: Alanine Aminotransfer (ALT/SGP 18 U/L (12-78); Albumin, Blood 2.5 g/dL (3.4-5.0); Albumin/Globulin Ratio 0.8 (0.8-1.8); Alk Phos 59 U/L (50-136); Anion Gap 3 mmol/L (6-16); Aspartate Aminotrans (AST/SGOT 13 U/L (12-37); Bilirubin, Total 0.9 mg/dL (0.1-1.0); Blood Urea Nitrogen 26 mg/dL (8-24); Bun/Creatinine Ratio 26.9 (12.0-20.0); CO2, Blood 40 mmol/L (21-32); Calcium, Blood 9.3 mg/dL (8.5-10.1); Chloride, Blood 97 mmol/L (98-108); Creatinine, Blood 0.97 mg/dL (0.40-1.00); Globulin, Blood 3.2 g/dL (2.2-4.0); Glomerular Filtration Rate >60 (60-); Glucose, Blood 71 mg/dL (70-99); Magnesium, Blood 1.6 mg/dL (1.6-2.4); Phosphorus, Blood 2.5 mg/dL (2.5-4.9); Potassium, Blood 4.1 mmol/L (3.5-5.5); Sodium, Blood 140 mmol/L (136-145); Total Protein, Blood 5.7 g/dL (6.4-8.2); Troponin I <0.015 ng/mL (0.000-0.040)
[2020-09-27 11:40] LABS: PO2 Arterial 53.5 mmHg (80-100); pH Blood Arterial 7.39 (7.35-7.45)
[2020-09-27 11:41] LABS: PCO2 Arterial 72.4 mmHg (35-45)
[2020-09-27 12:42] LABS: Source, Urine Catheter
[2020-09-27 13:03] LABS: Bilirubin, Urine Neg (Neg); Blood, Urine Neg (Neg); Glucose Qualitative, Urine Neg (Neg); Ketones, Urine Neg (Neg); Leukocyte Esterase, Urine Neg (Neg); Nitrite, Urine Neg (Neg); Protein, Urine Neg (Neg); Urobilinogen, Urine NORM (Normal)
[2020-09-27 13:16] LABS: Appearance, Urine Clear (Clear); Color, Urine Pale Yellow (P-Yellow)
--- NOTE | 2020-09-27 18:44 | NUR ---
SHIFT SUMMARY PATIENT WAS LABILE T/O SHIFT, CUSSING AT STAFF AND STATING THAT SHE "WANTED TO LEAVE THE HOSPITAL". PATIENT IS UNABLE TO AMBULATE SAFELY TO BEDSIDE COMMODE, ON BED REST AT THIS TIME. ATTEMPTED TO USE BEDSIDE COMMODE, PATIENT WAS UNABLE TO FOLLOW COMMANDS AND HAD TO BE SUPPORTED ABCK TO SAFE SITTING POSITION ON BED ONCE UP FROM COMMODE. THIS MORNING PATIENT SLEPT AT TIMES, AND EVERY 20-30 MINUTES WOULD AWAKE SUDDENLY SHOUTING THAT SHE NEEDED TO URINATE AND PULL OFF BIPAP LEADING TO DESATURATION TO 60-70% O2. WHEN DONE USING BEDPAN PATIENT WOULD AGAIN PULL OFF BIPAP. BLADDER SCAN POST VOID SHOWED RETENTION >500 ML. COPE CATH PLACED, IMMEDIATE DRAINAGE OF APPROX. 600 MLS. CIWA SCORE RANGED 9-14 THIS SHIFT. PATIENT IS ABLE TO STATE THAT SHE IS IN THE HOSPITAL, UNABLE TO FOLLOW COMMANDS AT THIS TIME, CONTINUALLY PULLING OFF BIPAP MASK. PATIENT IS HAVING VISUAL HALLUCINATIONS, TWICE DURING SHIFT PATIENT MOTIONED TO AN EMPTY PART OF THE ROOM AND ASKED IF THAT WAS HER BROTHER STANDING IN THE CORNER. MEDICATED WITH ATIVAN/LIBRIUM PER EMAR. ORAL CARE DONE T/O SHIFT, SUCTIONED THICK CLEAR MUCOUS, PATIENT TOLERATED SUCTIONING WELL AND COOPERATED WITH ORAL CARE.
[2020-09-28 04:08] LABS: BASOPHILS ABSOLUTE AUTO 0.04 K/mm3 (0.00-0.23); BASOPHILS PERCENT AUTO 1 % (0-2); EOSINOPHILS ABSOLUTE AUTO 0.13 K/mm3 (0.00-0.68); EOSINOPHILS PERCENT AUTO 2 % (0-6); Hematocrit 43.5 % (33.0-51.0); Hemoglobin 14.1 g/dL (11.5-16.0); IMMATURE GRAN ABSOLUTE AUTO 0.02 K/mm3 (0.00-0.10); IMMATURE GRAN PERCENT AUTO 0 % (0-1); LYMPHOCYTES ABSOLUTE AUTO 0.91 K/mm3 (0.84-5.20); LYMPHOCYTES PERCENT AUTO 11 % (21-46); MONOCYTES ABSOLUTE AUTO 0.92 K/mm3 (0.16-1.47); MONOCYTES PERCENT AUTO 11 % (4-13); Mean Corpuscular HGB 35.5 pg (26.0-34.0); Mean Corpuscular HGB Conc 32.4 g/dL (31.5-36.5); Mean Corpuscular Volume 110 fL (80-100); Mean Platelet Volume 10.2 fL (9.1-12.4); NEUTROPHILS ABSOLUTE AUTO 6.02 K/mm3 (1.96-9.15); NEUTROPHILS PERCENT AUTO 75 % (41-73); Platelet Count 155 K/mm3 (150-400); RDW Coefficient Variation 14.8 % (11.7-14.2); RDW Standard Deviation 60.4 fL (35.1-46.3); Red Blood Cell Count 3.97 M/mm3 (3.80-5.20); White Blood Cell Count 8.04 K/mm3 (4.00-11.30)
[2020-09-28 04:29] LABS: Anion Gap 4 mmol/L (6-16); Blood Urea Nitrogen 24 mg/dL (8-24); Bun/Creatinine Ratio 26.8 (12.0-20.0); CO2, Blood 37 mmol/L (21-32); Calcium, Blood 9.6 mg/dL (8.5-10.1); Chloride, Blood 98 mmol/L (98-108); Glomerular Filtration Rate >60 (60-); Glucose, Blood 71 mg/dL (70-99); Potassium, Blood 3.9 mmol/L (3.5-5.5); Sodium, Blood 139 mmol/L (136-145)
[2020-09-28 04:56] LABS: PCO2 Arterial 68.9 mmHg (35-45); PO2 Arterial 67.9 mmHg (80-100); pH Blood Arterial 7.36 (7.35-7.45)
--- NOTE | 2020-09-28 05:36 | NUR ---
SHIFT SUMMARY PT CONTINUES TO BE CONFUSED, PULLING AT LINES, AND AGITATED. RECEIVING IV ATIVAN Q2 AT THIS TIME IN ORDER TO FACILITATE PT KEEPING BIPAP ON DUE TO "HYPERCARBIC NARCOSIS" AND TO AID IN ETOH W/DRAWAL. CURRENTLY, MAINTAINING SPO2 FROM 88-92% WITH BIPAP SETTINGS: 22/8 35-40%. ORAL CARE DIFFICULT TO COMPLETE DUE TO PT AGITATION WITH THIS BUT THIS RN WAS ABLE TO COMPLETE OC 3 TIMES THIS SHIFT. PT REMAINS IN SR AND STABLE VS. COPE REMAINS PATENT AND DRAINING. R LEG CONTINUES WITH SWELLING. CIWAS RANGING FROM 0-18 THIS SHIFT- MOSTLY DUE TO AGITATION AND CLOUDED MENTATION. ABG THIS AM SHOWS IMPROVEMENT FROM LAST ABG BUT STILL SHOWS HYPERCARBIA DESPITE BIPAP USE AND ONLY BREAKS BEING ORAL CARE. PT BED ALARM IN PLACE DUE TO IMPULSIVENESS. PT TOLERATES ATIVAN DOSES WELL AND THEY SEEM TO ALLOW AT LEAST AN HOUR OF PEACEFUL REST WITH INTERMITTENT YELLING OUT. BED IN LOWEST POSITION. RUG SETTER VELVET IN ROOM TO REPOSITION PT OFTEN. WILL CONTINUE TO MONITOR UNTIL SHIFT CHANGE.
--- NOTE | 2020-09-28 11:23 | NUR ---
PATIENT IS MORE OBTUNDED THIS SHIFT, BIPAP IN PLACE. VSS. DR. ENGLISH NOTIFIED, WILL ASSESS PATIENT ON ROUNDS.
[2020-09-28 15:37] LABS: PCO2 Arterial 64.9 mmHg (35-45); PO2 Arterial 74.6 mmHg (80-100); pH Blood Arterial 7.35 (7.35-7.45)
--- NOTE | 2020-09-28 18:39 | NUR ---
Review of pt with nursing. pt back form ct on bipap unable to get much reponse to stimulus.respirations labored high ventilatory support. Review of pt history repeat visits for similar events. Nursing review of history with brother presents with decline. Brother in briefly but had to leave due to pain form recent surgery. Will call brother tomorrow for plan of care and patient updates. Will have chaplian gricelda contact him for support.
--- NOTE | 2020-09-28 19:21 | NUR ---
SHIFT SUMMARY PATIENT OBTUNDED AT START OF SHIFT, NO MEANINGFUL RESPONSE TO PHYSICAL STIMULI, MINIMAL RESPONSE OF MOANING TO PAINFUL STIMULUS. VSS STABLE, THIS RN CONTINUED TO MONITOR. PATIENT BECAME MORE RESPONSIVE TO PHYSICAL STIMULUS INTO THE MORNING, ABLE TO MAKE NONVERBAL NOISES DURING REPOSITIONING. BIPAP MASK REMOVED FOR ORAL CARE AND PATIENT ASSESSED FOR ABILITY TO TAKE PO MEDS. PATIENT NOT ALERT ENOUGH FOR PO INTAKE, REMAINED LETHARGIC THROUGH MORNING, DR. ENGLISH NOTIFIED, AMMONIA LEVEL ORDERED. PATIENT'S O2 NEEDS INCREASED WHILE REMAINING ON BIPAP WITH PROPER MASK SEAL. DR. ENGLISH NOTIFIED, FOLLOW UP ABG AND CXR DONE, ABG SHOWED IMPROVEMENT FROM MORNING DRAW. NO ATIVAN GIVEN THIS SHIFT. PATIENT ON BIPAP WITH BREAKS ONLY FOR ORAL CARE. PATIENT WAS NOT ALERT ENOUGH FOR PO INTAKE THIS SHIFT. REPOSITIONED FREQUENTLY THROUGH SHIFT. AT ONE POINT IN EVENING PATIENT WAS ABLE TO STATE THAT SHE WAS IN [facility], HOWEVER AT OTHER TIMES DOES NOT ANSWER QUESTIONS FROM STAFF. THIS RN SPOKE WITH PATIENT'S BROTHER STEPHEN WITH WHOM PATIENT LIVES. STEPHEN ALSO VISITED THE PATIENT THIS SHIFT. PATIENT'S BROTHER STATES THAT THE PATIENT HAS GONE TO ALCOHOL REHAB IN THE PAST , HAS BEEN LIVING WITH HIM SINCE THEN. THE BROTHER STATES THAT WHILE HE WAS IN THE HOSPITAL RECENTLY FOR A SPAN OF 4 DAYS FOR BACK SURGERY, HE ASKED SEVERAL FRIENDS TO CHECK ON PATIENT AND BRING PATIENT FOOD WHILE HE WAS GONE. BROTHER STATES THAT THE PATIENT WAS PROVIDED WITH SEVERAL BOXES OF WINE AND WAS FOUND DOWN BY A DIFFERENT FRIEND COVERED IN FECES AND URINE. PATIENT'S BROTHER STATES THAT PATIENT NO LONGER DRIVES DUE TO DECREASED VISION. PATIENT'S BROTHER STATES CONCERN ABOUT HIS ABSENCE AND PATIENT'S DECLINE IN FUNCTIONAL STATUS, STEPHEN STATES THAT THE PATIENT WILL "SIT ALL DAY IN HER CHAIR ON HER PHONE," WHEN HE IS AWAY AT WORK. THIS RN SPOKE EXTENSIVELY WITH MAGGIE RN AND MAIDA RN IN PALLIATIVE REGARDING PATIENT CASE, PLAN IS FOR FOLLOW UP WITH PALLIATIVE TOMORROW.
[2020-09-29 04:16] LABS: BASOPHILS ABSOLUTE AUTO 0.03 K/mm3 (0.00-0.23); BASOPHILS PERCENT AUTO 0 % (0-2); EOSINOPHILS ABSOLUTE AUTO 0.02 K/mm3 (0.00-0.68); EOSINOPHILS PERCENT AUTO 0 % (0-6); Hematocrit 43.1 % (33.0-51.0); Hemoglobin 14.2 g/dL (11.5-16.0); IMMATURE GRAN ABSOLUTE AUTO 0.04 K/mm3 (0.00-0.10); IMMATURE GRAN PERCENT AUTO 0 % (0-1); LYMPHOCYTES ABSOLUTE AUTO 0.63 K/mm3 (0.84-5.20); LYMPHOCYTES PERCENT AUTO 5 % (21-46); MONOCYTES ABSOLUTE AUTO 0.91 K/mm3 (0.16-1.47); MONOCYTES PERCENT AUTO 7 % (4-13); Mean Corpuscular HGB 35.4 pg (26.0-34.0); Mean Corpuscular HGB Conc 32.9 g/dL (31.5-36.5); Mean Corpuscular Volume 108 fL (80-100); Mean Platelet Volume 10.4 fL (9.1-12.4); NEUTROPHILS ABSOLUTE AUTO 12.05 K/mm3 (1.96-9.15); NEUTROPHILS PERCENT AUTO 88 % (41-73); Platelet Count 171 K/mm3 (150-400); RDW Coefficient Variation 14.7 % (11.7-14.2); RDW Standard Deviation 58.7 fL (35.1-46.3); Red Blood Cell Count 4.01 M/mm3 (3.80-5.20); White Blood Cell Count 13.68 K/mm3 (4.00-11.30)
[2020-09-29 04:34] LABS: Alanine Aminotransfer (ALT/SGP 15 U/L (12-78); Albumin, Blood 2.7 g/dL (3.4-5.0); Albumin/Globulin Ratio 0.8 (0.8-1.8); Alk Phos 63 U/L (50-136); Anion Gap 6 mmol/L (6-16); Aspartate Aminotrans (AST/SGOT 10 U/L (12-37); Bilirubin, Total 0.9 mg/dL (0.1-1.0); Blood Urea Nitrogen 20 mg/dL (8-24); Bun/Creatinine Ratio 24.7 (12.0-20.0); CO2, Blood 33 mmol/L (21-32); Calcium, Blood 9.4 mg/dL (8.5-10.1); Chloride, Blood 102 mmol/L (98-108); Creatinine, Blood 0.81 mg/dL (0.40-1.00); Globulin, Blood 3.5 g/dL (2.2-4.0); Glomerular Filtration Rate >60 (60-); Glucose, Blood 78 mg/dL (70-99); Potassium, Blood 3.7 mmol/L (3.5-5.5); Sodium, Blood 141 mmol/L (136-145); Total Protein, Blood 6.2 g/dL (6.4-8.2)
--- NOTE | 2020-09-29 05:11 | NUR ---
SHIFT SUMMARY PT CONTINUES TO BE LETHARGIC. YELLING OUT AT TIMES. TELLS STAFF TO "FUCKTHEMSELVES" WHEN STAFF COMPLETING ORAL CARE. PT RESPONDING TO PAIN AND SOME VERBAL COMMANDS. REMAINS SR. BP STABLE. REMAINS ON BIPAP 19/03, STARTED SHIFT WITH FIO2 50%, TITRATED EVENTUALY TO 40% TO MAINTAIN SPO2 88-92%. AGGRESSIVE ORAL CARE COMPLETED WITH ALL VITALS. COPE PATENT AND DRAINING. LEG SWELLING REMAINS BUT LESSENED. ATIVAN GIVEN ONCE THIS SHIFTVFOR CIWA >9. CIWAS BEGINNING TO CREEP BACK UP POST ADMINISTRATION BUT NOT HIGH ENOUGH TO WARRANT ANOTHER DOSE. OTHERWISE, PT BEING TURNE BY STAFF, BED ALARM ON, BED IN LOW POSITION. WILL CONTINUE TO MONITOR UNTIL SHIFT CHANGE.
--- NOTE | 2020-09-29 15:57 | NUR ---
Pt resting in bed upon arrival and is wearing BIPAP. Pt responds intermittently to questions with moderate level voice. Pt becomes agitated if interaction continues for more than a few minutes. Pt's brother Louis is at bedside. Provided update and offered therapeutic listening. Offered emotional support as Louis is tearful intermittently. Validated concerns and answered questions. Provided gentle education on the importance of developing multiple plans as disease process progresses. Suggested in the near future if Pt's cognition imporoves the importance of discussion regarding code status. Educated on life sustaining measures including risk factors and implications. Continued therapeutic listening for several more minutes. Ended visit to allow Louis to visit with Pt. Spoke with Bedside SARA Toure and discussed case. Palliative Care will remain available.
--- NOTE | 2020-09-29 18:36 | NUR ---
SHIFT SUMMARY PATIENT REMAINED LETHARGIC THROUGHOUT SHIFT. BEDSIDE SWALLOW EVAL DONE TWICE THIS SHIFT, PATIENT DOES NOT ATTEMPT TO TAKE IN FLUIDS, DOES NOT RESPOND TO LIQUID BEING TOUCHED TO MOUTH OR SWABBED ON LIPS. NO PO INTAKE THIS SHIFT. ORAL CARE DONE THROUGHOUT SHIFT, THICK MUCOUS SUCTIONED. PATIENT IS HOT TO THE TOUCH, TEMP OF 101.6. DR. ENGLISH NOTIFIED, ORDERS FOR BLOOD CULTURES, CLINIMIX AND IV ABX GIVEN. PATIENT REPOSITIONED T/O TODAY, BIPAP ON WITH SHORT BREAKS FOR ORAL CARE ONLY.
[2020-09-30 05:27] LABS: PCO2 Arterial 58.1 mmHg (35-45); PO2 Arterial 65.3 mmHg (80-100)
--- NOTE | 2020-09-30 05:36 | NUR ---
SHIFT SUMMARY NO ACUTE CHANGES THIS SHIFT. CONTINUES TO BE LETHARGIC BUT HAS IMPROVED WITH MENTATION. PT MUCH MORE VERBAL THIS SHIFT COMPARED TO LAST. ZYPREXA ADMINISTERED ONCE FOR AGITATION. PT REMAINS IN SR. VSS BESIDES O2 DEMANDS. REMAINS ON BIPAP / 40-45%. ABG THIS AM SHOWS IMPROVING CO2. COPE REMAINS PATENT AND DRAINING. PT BEING TURNED OFTEN BUT ALWAYS TENDS TO CURL TO THE LEFT AND KICK LEGS OUT TO R SIDE OF BED. AGGRESSIVE ORAL CARE COMPLETED WITH EACH VS, PT DIFFICULT AT TIMES DUE TO CLENCHING TEETH. NO CHANGE IN LUNG SOUNDS NOTED. PHLEBITIS NOTED TO LAC IV SITE, DC'D. PICTURE TAKEN. HARD PUS NOTED TO SITE, UNABLE TO EXPRESS ANY LIQUID. SITE CLEANED VIGOROUSLY AND OPSITE PLACED OVER SITE. BED ALARM IN PLACE. WILL CONTINUE TO MONITOR UNTIL SHIFT CHANGE.
[2020-09-30 11:15] LABS: International Normalized Ratio 1.21; Prothrombin Time Results 12.8 Sec (9.7-11.5)
[2020-09-30 16:48] LABS: Cryptococcus Neoformans/Gattii Not Detected (NOT DETECT); Enterovirus Not Detected (NOT DETECT); Escherichia Coli K1 Not Detected (NOT DETECT); Haemophilus Influenza Not Detected (NOT DETECT); Herpes Simplex Virus 1 Not Detected (NOT DETECT); Herpes Simplex Virus 2 Not Detected (NOT DETECT); Human Herpesvirus 6 Not Detected (NOT DETECT); Human Parechovirus Not Detected (NOT DETECT); Listeria Monocytogenes Not Detected (NOT DETECT); Neisseria Meningitidis Not Detected (NOT DETECT); Streptococcus Agalactiae Not Detected (NOT DETECT); Streptococcus Pneumoniae Not Detected (NOT DETECT); Varicella Zoster Virus Not Detected (NOT DETECT)
[2020-09-30 17:10] LABS: Automated CSF WBC Count 0.001 K/mm3 (0-5); WBC Count, CSF 1 /mm3 (0-5)
[2020-09-30 17:21] LABS: RBC Count, CSF 85 /mm3 (0-0)
--- NOTE | 2020-09-30 17:47 | NUR ---
SHIFT SUMMARY PT REMAINS LETHARGIC THROUGHOUT SHIFT WITH NO IMPROVEMENT IN MENTATION. VS STABLE. O2 SATS HAVE REMAINED ABOVE 90% ON BIPAP WITH FIO2 OF 35%. PT HAD MINIMAL BREAKS FOR ORAL CARE. THICK BROWN SPUTUM WAS COUGHED UP BY PT THIS SHIFT. BP STABLE. HR NSR. PT YELLS OUT WITH REPOSITIONING, BUT DOES NOT SHOW ANY SIGNS OF PAIN AT REST. PT HAD LUMBAR PUNCTURE THIS SHIFT. PT REPOSITIONED Q2H. COPE PATENT AND DRAINING YELLOW URINE. PG PLACED TO LEFT UPPER ARM THIS SHIFT AND PPN INFUSING PER ORDERS. WILL CONTINUE TO MONITOR AND REPORT TO ONCOMING RN.
[2020-09-30 18:18] LABS: Appearance, CSF Clear (Clear); Color, CSF No Color (No Color); Lymphocytes, CSF 43 % (40-80); Monocytes, CSF 57 % (15-45)
--- NOTE | 2020-09-30 19:57 | NUR ---
ASSUMED CARE PT IN ROOM SLEEPING. VITAL SIGNS ARE STABLE. BIPAP IN PLACE WITH SATS >92. COPE CATHETER IN PLACE AND DRAINING. PT IS BEDREST. WILL CONTINUE TO MONITOR.
[2020-10-01 04:03] LABS: BASOPHILS ABSOLUTE AUTO 0.04 K/mm3 (0.00-0.23); BASOPHILS PERCENT AUTO 0 % (0-2); EOSINOPHILS ABSOLUTE AUTO 0.06 K/mm3 (0.00-0.68); EOSINOPHILS PERCENT AUTO 1 % (0-6); Hematocrit 41.6 % (33.0-51.0); Hemoglobin 13.8 g/dL (11.5-16.0); IMMATURE GRAN ABSOLUTE AUTO 0.05 K/mm3 (0.00-0.10); IMMATURE GRAN PERCENT AUTO 0 % (0-1); LYMPHOCYTES ABSOLUTE AUTO 0.88 K/mm3 (0.84-5.20); LYMPHOCYTES PERCENT AUTO 7 % (21-46); MONOCYTES ABSOLUTE AUTO 1.21 K/mm3 (0.16-1.47); MONOCYTES PERCENT AUTO 9 % (4-13); Mean Corpuscular HGB Conc 33.2 g/dL (31.5-36.5); Mean Corpuscular Volume 106 fL (80-100); Mean Platelet Volume 11.2 fL (9.1-12.4); NEUTROPHILS PERCENT AUTO 83 % (41-73); Platelet Count 151 K/mm3 (150-400); RDW Coefficient Variation 14.4 % (11.7-14.2); RDW Standard Deviation 56.5 fL (35.1-46.3); Red Blood Cell Count 3.94 M/mm3 (3.80-5.20); White Blood Cell Count 13.24 K/mm3 (4.00-11.30)
[2020-10-01 04:21] LABS: Alanine Aminotransfer (ALT/SGP 13 U/L (12-78); Albumin, Blood 2.2 g/dL (3.4-5.0); Albumin/Globulin Ratio 0.5 (0.8-1.8); Alk Phos 61 U/L (50-136); Anion Gap 5 mmol/L (6-16); Aspartate Aminotrans (AST/SGOT 9 U/L (12-37); Bilirubin, Total 0.6 mg/dL (0.1-1.0); Blood Urea Nitrogen 29 mg/dL (8-24); Bun/Creatinine Ratio 39.6 (12.0-20.0); CO2, Blood 33 mmol/L (21-32); Calcium, Blood 9.3 mg/dL (8.5-10.1); Chloride, Blood 100 mmol/L (98-108); Creatinine, Blood 0.73 mg/dL (0.40-1.00); Globulin, Blood 4.2 g/dL (2.2-4.0); Glomerular Filtration Rate >60 (60-); Glucose, Blood 119 mg/dL (70-99); Magnesium, Blood 1.3 mg/dL (1.6-2.4); Phosphorus, Blood 2.4 mg/dL (2.5-4.9); Potassium, Blood 3.9 mmol/L (3.5-5.5); Sodium, Blood 138 mmol/L (136-145); Total Protein, Blood 6.4 g/dL (6.4-8.2); Triglycerides 76 mg/dL (30-160)
--- NOTE | 2020-10-01 05:55 | NUR ---
CALLED DR STORM. PT MAG 1.3. ORDERS IN PER DR. Horne IV MAG.
--- NOTE | 2020-10-01 06:59 | NUR ---
SHIFT SUMMARY PT HAS BEEN RESPODING TO STIMULI; WILL RESISIT WHEN REPOSITIONING. VITAL HAVE BEEN STABLE. SR OF 79; USING BIPAP. IS MORE VERBAL THAN BEGINING OF SHIFT AND HAVING MORE MOVEMENT VS NOT BEING VERBAL NOR OPENING EYES. COPE IN PLACE AND DRAINING.
--- NOTE | 2020-10-01 18:39 | NUR ---
SUMMARY PT HAS WOKE UP A FEW TIMES TODAY, WAS VERBAL & ABLE TO COMMUNICATE HER NEEDS. SHE IS SLOW TO RESPOND AND FALLS ASLEEP EASILY. PT REMAINS ON BIPAP, 18/8, 30% FIO2, PT CAN TOLERATE NC @ 6L DURING ORAL CARE FOR A SHORT TIME BUT ONLY W CONSTANT REMINDERS DEEP BREATH. PPN INFUSING, NPO AT THIS TIME, VSS, FREQUENT ORAL CARE DONE, PT COOPERATIVE WITH CARE. Q2 TURNS PROVIDED. CALL LIGHT IN REACH.
[2020-10-02 04:49] LABS: BASOPHILS ABSOLUTE AUTO 0.04 K/mm3 (0.00-0.23); BASOPHILS PERCENT AUTO 0 % (0-2); EOSINOPHILS ABSOLUTE AUTO 0.15 K/mm3 (0.00-0.68); EOSINOPHILS PERCENT AUTO 1 % (0-6); Hematocrit 40.2 % (33.0-51.0); Hemoglobin 13.3 g/dL (11.5-16.0); IMMATURE GRAN ABSOLUTE AUTO 0.03 K/mm3 (0.00-0.10); IMMATURE GRAN PERCENT AUTO 0 % (0-1); LYMPHOCYTES ABSOLUTE AUTO 0.75 K/mm3 (0.84-5.20); LYMPHOCYTES PERCENT AUTO 7 % (21-46); MONOCYTES ABSOLUTE AUTO 1.24 K/mm3 (0.16-1.47); MONOCYTES PERCENT AUTO 12 % (4-13); Mean Corpuscular HGB 35.1 pg (26.0-34.0); Mean Corpuscular HGB Conc 33.1 g/dL (31.5-36.5); Mean Corpuscular Volume 106 fL (80-100); Mean Platelet Volume 10.7 fL (9.1-12.4); NEUTROPHILS ABSOLUTE AUTO 8.14 K/mm3 (1.96-9.15); NEUTROPHILS PERCENT AUTO 79 % (41-73); Platelet Count 152 K/mm3 (150-400); RDW Coefficient Variation 14.5 % (11.7-14.2); RDW Standard Deviation 56.7 fL (35.1-46.3); Red Blood Cell Count 3.79 M/mm3 (3.80-5.20); White Blood Cell Count 10.35 K/mm3 (4.00-11.30)
[2020-10-02 05:07] LABS: Alanine Aminotransfer (ALT/SGP 20 U/L (12-78); Albumin, Blood 1.9 g/dL (3.4-5.0); Albumin/Globulin Ratio 0.5 (0.8-1.8); Alk Phos 73 U/L (50-136); Anion Gap 1 mmol/L (6-16); Aspartate Aminotrans (AST/SGOT 25 U/L (12-37); Bilirubin, Total 0.6 mg/dL (0.1-1.0); Blood Urea Nitrogen 28 mg/dL (8-24); Bun/Creatinine Ratio 37.5 (12.0-20.0); CO2, Blood 36 mmol/L (21-32); Calcium, Blood 9.4 mg/dL (8.5-10.1); Chloride, Blood 100 mmol/L (98-108); Creatinine, Blood 0.75 mg/dL (0.40-1.00); Globulin, Blood 4.2 g/dL (2.2-4.0); Glomerular Filtration Rate >60 (60-); Glucose, Blood 114 mg/dL (70-99); Magnesium, Blood 1.8 mg/dL (1.6-2.4); Phosphorus, Blood 3.2 mg/dL (2.5-4.9); Potassium, Blood 4.4 mmol/L (3.5-5.5); Sodium, Blood 137 mmol/L (136-145); Total Protein, Blood 6.1 g/dL (6.4-8.2)
--- NOTE | 2020-10-02 07:00 | NUR ---
SHIFT SUMMARY PATIENT APPEARS TO BE CONFUSED AND FORGETFUL AT THE BEGINNING OF THE SHIFT BUT APPEARED TO CLEAR UP SLIGHTLY TOWARDS THE END OF THE SHIFT. PATIENT WIDE AWAKE AND STILL APPEARED TO BE SLIGHTLY CONFUSED BUT WAS ABLE TO HAVE A CONVERSATION WITH STAFF. PATIENT STATED, "I'M HUNGRY FOR CHINSE FOOD." PATIENT WOULD ATTEMPT TO MOVE HER LEGS OVER THE EDGE OF THE BED BUT SHE DID NOT SET THE BED ALARM OFF. PATIENT TALKED TO HERSELF QUIETLY. AT THIS TIME PATIENT WAS PLACED ON 6L O2 AND WAS ABLE TO MAINTAIN HER O2 SATURATION WELL. AFTER A FEW HOURS PATIENT STARTED TO NAP ON AND OFF, PATIENT PLACED BACK ON THE BIPAP. PATIENT DOES NOT APPEAR TO BE MANAGING HER SECREATIONS VERY WELL ON HER OWN, PATIENT REQUIRES SUCTIONING PPN INFUSING PER ORDERS. REPORT GIVEN TO ONCOMING RN.
--- NOTE | 2020-10-02 19:44 | NUR ---
SUMMARY PT HAS HAD A GOOD DAY. SHE HAS BEEN ON 6L VIA NC FOR THE MAJORITY OF THE DAY, BIPAP PRN, A&O X3, DEEP BREATHING & COUGHING STRONGLY ENC TODAY, PT WAS COOPERATIVE & ABLE TO PRODUCE COPIOUS SECRETIONS. PHYSICAL THERAPY WAS ABLT TO STAND PT AT THE BEDSIDE WELL BED EXERCISES. PT APPEARS TO BE MOTIVATED/PLEASANT. PPN INFUSING PER EMAR, PT REMAINS NPO, GAG REFLEX INTACT YET SWALLOW APPEARS TO BE DELAYED. SUCTION AT BEDSIDE W FREQUENT ORAL CARE.BED ALARM IN PLACE FOR SAFETY, CALL LIGHT IN REACH. REPORT GIVEN TO RAQUEL RUIZ.
--- NOTE | 2020-10-02 22:58 | NUR ---
TELE EVENT NOTE TELE PROPOSAL LEAD WRITER CALLED RN STATING THAT PATIENT HAD A RUN OF VTACH THAT WAS APPROX 30 BEATS LONG. CHARGE NURSE CAROLE Phillips, WENT TO CHECK ON PATIENT AND NOTED PATIENT VERY AGITATED AND ATTEMPTING TO CLIMB OUT OF BED LOOKING FOR HER BROTHER. CAROLE WAS ABLE TO REORIENT PATIENT AND PATIENT WAS ABLE TO SELTTLED DOWN AND NOW APPEARS TO BE RESTING COMFORTABLY. CALL LIGHT IN REACH.
[2020-10-03 04:26] LABS: pH Blood Venous 7.42 (7.34-7.37)
[2020-10-03 04:27] LABS: Base Excess Venous 12.5 mmol/L; Bicarbonate Venous 33.8 mmol/L (24.0-30.0); PCO2 Venous 57.8 mmHg (38-42); PO2 Venous 56.2 mmHg (38-42)
[2020-10-03 04:29] LABS: BASOPHILS ABSOLUTE AUTO 0.02 K/mm3 (0.00-0.23); BASOPHILS PERCENT AUTO 0 % (0-2); EOSINOPHILS PERCENT AUTO 3 % (0-6); Hematocrit 39.7 % (33.0-51.0); IMMATURE GRAN ABSOLUTE AUTO 0.03 K/mm3 (0.00-0.10); IMMATURE GRAN PERCENT AUTO 0 % (0-1); LYMPHOCYTES ABSOLUTE AUTO 0.66 K/mm3 (0.84-5.20); LYMPHOCYTES PERCENT AUTO 9 % (21-46); MONOCYTES ABSOLUTE AUTO 0.95 K/mm3 (0.16-1.47); MONOCYTES PERCENT AUTO 13 % (4-13); Mean Corpuscular HGB 34.9 pg (26.0-34.0); Mean Corpuscular HGB Conc 32.7 g/dL (31.5-36.5); Mean Corpuscular Volume 106 fL (80-100); Mean Platelet Volume 10.9 fL (9.1-12.4); NEUTROPHILS ABSOLUTE AUTO 5.23 K/mm3 (1.96-9.15); NEUTROPHILS PERCENT AUTO 74 % (41-73); Platelet Count 157 K/mm3 (150-400); RDW Coefficient Variation 14.3 % (11.7-14.2); RDW Standard Deviation 56.3 fL (35.1-46.3); Red Blood Cell Count 3.73 M/mm3 (3.80-5.20); White Blood Cell Count 7.09 K/mm3 (4.00-11.30)
[2020-10-03 04:49] LABS: Alanine Aminotransfer (ALT/SGP 27 U/L (12-78); Albumin, Blood 1.9 g/dL (3.4-5.0); Albumin/Globulin Ratio 0.5 (0.8-1.8); Alk Phos 85 U/L (50-136); Anion Gap 1 mmol/L (6-16); Aspartate Aminotrans (AST/SGOT 27 U/L (12-37); Bilirubin, Total 0.7 mg/dL (0.1-1.0); Blood Urea Nitrogen 30 mg/dL (8-24); Bun/Creatinine Ratio 42.8 (12.0-20.0); CO2, Blood 36 mmol/L (21-32); Calcium, Blood 9.4 mg/dL (8.5-10.1); Chloride, Blood 100 mmol/L (98-108); Globulin, Blood 4.1 g/dL (2.2-4.0); Glomerular Filtration Rate >60 (60-); Glucose, Blood 120 mg/dL (70-99); Magnesium, Blood 1.7 mg/dL (1.6-2.4); Phosphorus, Blood 3.1 mg/dL (2.5-4.9); Potassium, Blood 4.4 mmol/L (3.5-5.5); Sodium, Blood 137 mmol/L (136-145)
--- NOTE | 2020-10-03 06:11 | NUR ---
SHIFT SUMMARY PATIENT MUCH MORE AWAKE AND ALERT TONIGHT THAN THE PREVIOUS NIGHT. PATIENT STILL CONFUSED AND FREQUENTLY CALLING OUT FOR FAMILY MEMBERS. PATIENT PLEASENT BUT CONFUSED AND FORGETFUL. PATIENT WORE THE BIPAP FOR MOST OF THE NIGHT BUT IT WAS OFF FOR APPROX A TOTAL OF 4 HOURS. PATIENT ON 6L WHEN OFF BIPAP. PATIENT FREQUENTLY CALLS OUT AND REQUIRES FREQUENT REORIENTATION, HOWEVER PATIENT DOES NOT REORIENT WELL. SEVERAL TIMES PATIENT THOUGHT THAT HER BROTHER WAS IN THE ROOM OR AT THE DOOR WAY. PATIENT WOULD FREQUENTLY PULL AT THE BIPAP. PATIENT OFTEN KICKING HER LEGS OVER THE EDGE OF THE BED. PATIENT WOULD TALK TO SELF WHEN ALONE IN ROOM. PPN INFUSING PER ORDERS. WILL CONTINUE CURRENT PLAN OF CARE AND REPORT TO ONCOMING RN.
--- NOTE | 2020-10-03 19:18 | NUR ---
SUMMARY PT HAS BEEN ABLE TO WORK WITH PT/OT TODAY WITH NO PROBLEMS. SHE HAS BEEN UP TO A RECLINER X2 & THE BSC. PT CONTINUES TO HAVE PERIODS OF CONFUSION BUT APPEARS TO BE ALERT & ORIENTED AT TIMES. SHE WILL TALK TO FAMILY ON THE PHONE, STATE HER NEEDS & FOLLOW DIRECTIONS & REPEAT TEACHING SUCH DB&C W/SUCTIONING. PT HAS BEEN ABLE TO SELF SUCTION THIS AFTERNOON WHILE SITTING UP IN THE CHAIR. PT REMAINS NPO DUE TO ASPIRATION RISK, FREQUENT ORAL CARE PROVIDED. PT IS CURRENTLY ON HIGH CHAO NC @ 7L O2, PPN INFUSING PER EMAR. CALL LIGHT IN REACH, TAB ALARM IS ON FOR SAFETY. REPORT GIVEN TO RAQUEL RUIZ.
[2020-10-04 03:48] LABS: BASOPHILS ABSOLUTE AUTO 0.04 K/mm3 (0.00-0.23); BASOPHILS PERCENT AUTO 1 % (0-2); EOSINOPHILS ABSOLUTE AUTO 0.25 K/mm3 (0.00-0.68); EOSINOPHILS PERCENT AUTO 3 % (0-6); Hematocrit 40.1 % (33.0-51.0); Hemoglobin 13.1 g/dL (11.5-16.0); IMMATURE GRAN ABSOLUTE AUTO 0.02 K/mm3 (0.00-0.10); IMMATURE GRAN PERCENT AUTO 0 % (0-1); LYMPHOCYTES ABSOLUTE AUTO 0.78 K/mm3 (0.84-5.20); LYMPHOCYTES PERCENT AUTO 10 % (21-46); MONOCYTES ABSOLUTE AUTO 1.11 K/mm3 (0.16-1.47); MONOCYTES PERCENT AUTO 14 % (4-13); Mean Corpuscular HGB 34.8 pg (26.0-34.0); Mean Corpuscular HGB Conc 32.7 g/dL (31.5-36.5); Mean Corpuscular Volume 107 fL (80-100); Mean Platelet Volume 10.7 fL (9.1-12.4); NEUTROPHILS PERCENT AUTO 72 % (41-73); Platelet Count 187 K/mm3 (150-400); RDW Coefficient Variation 14.4 % (11.7-14.2); RDW Standard Deviation 56.6 fL (35.1-46.3); Red Blood Cell Count 3.76 M/mm3 (3.80-5.20)
[2020-10-04 04:06] LABS: Albumin, Blood 2.2 g/dL (3.4-5.0); Anion Gap 3 mmol/L (6-16); Blood Urea Nitrogen 30 mg/dL (8-24); Bun/Creatinine Ratio 40.9 (12.0-20.0); CO2, Blood 37 mmol/L (21-32); Calcium, Blood 9.8 mg/dL (8.5-10.1); Chloride, Blood 98 mmol/L (98-108); Creatinine, Blood 0.73 mg/dL (0.40-1.00); Glomerular Filtration Rate >60 (60-); Glucose, Blood 117 mg/dL (70-99); Phosphorus, Blood 3.2 mg/dL (2.5-4.9); Potassium, Blood 4.3 mmol/L (3.5-5.5); Sodium, Blood 138 mmol/L (136-145)
--- NOTE | 2020-10-04 05:56 | NUR ---
SHIFT SUMMARY PT RESTED SOME THROUGH THE NIGHT. CONFUSED AND NEEDS REORIENTATION. ABLE TO MAKE NEEDS KNOWN. TELE NSR. SATS >90% ON 7LNC, WEARS BIPAP AT HS. AGITATED WITH NO IMPROVEMENT AFTER ZYPREXA, HALDOL X1 WITH IMPROVEMENT IN AGITATION. Q2 TURNS. 2 PERSON ASSIST FROM CHAIR TO BED. COPE - 900ML. VJ CARE PERFORMED. NO C/O PAIN. VSS. CALL LIGHT WITHIN REACH, BED IN LOWEST POSITION, BED ALARM ON. WILL CONTINUE TO MONITOR.
--- NOTE | 2020-10-04 10:21 | NUR ---
ASSUMED PT CARE AT THIS TIME FROM SARA MATTHEW.
[2020-10-04 13:10] LABS: ANA DIRECT Negative (Negative); ANTIMYELOPEROXIDASE (MPO) ABS <9.0 U/mL (0.0-9.0); ANTIPROTEINASE 3 (PR-3) ABS <3.5 U/mL (0.0-3.5); ATYPICAL PANCA <1:20 titer (Neg:<1:20); CYTOPLASMIC (C-ANCA) <1:20 titer (Neg:<1:20); PERINUCLEAR (P-ANCA) <1:20 titer (Neg:<1:20)
--- NOTE | 2020-10-04 18:56 | NUR ---
PT SUMMARY: PT NOW IS ALERT AND ORIENTED X3, PT WORKED WITH THERAPY WAS ABLE TO TRANFER TO A RECLINER VIA FWW. VITALS HAS BEEN STABLE, PT IS ON 4L OF O2 VIA HIFLO SATS ABOVE 90%. DIET RESUMED TODAY PT TOLERATED APPLESAUCE AND FLUIDS WITHOUT ASPIRATING/COUGHING, PPN DC'D, PT ATE HER DINNER TRAY WITH NO ISSUES. PT BROTHER CAME AND VISITED TODAY, PT WAS ABLE TO TALK TO BROTHER AND MOM ON THE PHONE. PT FOLLOWS DIRECTION, YELLS OUT SOMETIMES FOR HELP, REDIRECTABLE. NO OTHER ISSUES ENCOUNTERED FOR THE SHIFT, WILL REPORT TO ONCOMING SHIFT
[2020-10-05 06:13] LABS: BASOPHILS ABSOLUTE AUTO 0.06 K/mm3 (0.00-0.23); BASOPHILS PERCENT AUTO 1 % (0-2); EOSINOPHILS ABSOLUTE AUTO 0.25 K/mm3 (0.00-0.68); EOSINOPHILS PERCENT AUTO 4 % (0-6); Hematocrit 38.5 % (33.0-51.0); Hemoglobin 12.7 g/dL (11.5-16.0); IMMATURE GRAN ABSOLUTE AUTO 0.02 K/mm3 (0.00-0.10); IMMATURE GRAN PERCENT AUTO 0 % (0-1); LYMPHOCYTES ABSOLUTE AUTO 1.05 K/mm3 (0.84-5.20); LYMPHOCYTES PERCENT AUTO 19 % (21-46); MONOCYTES ABSOLUTE AUTO 0.89 K/mm3 (0.16-1.47); MONOCYTES PERCENT AUTO 16 % (4-13); Mean Corpuscular HGB 34.5 pg (26.0-34.0); Mean Corpuscular Volume 105 fL (80-100); Mean Platelet Volume 11.2 fL (9.1-12.4); NEUTROPHILS PERCENT AUTO 60 % (41-73); Platelet Count 236 K/mm3 (150-400); RDW Coefficient Variation 14.5 % (11.7-14.2); RDW Standard Deviation 56.4 fL (35.1-46.3); Red Blood Cell Count 3.68 M/mm3 (3.80-5.20); White Blood Cell Count 5.67 K/mm3 (4.00-11.30)
[2020-10-05 06:26] LABS: Albumin, Blood 2.1 g/dL (3.4-5.0); Anion Gap 2 mmol/L (6-16); Blood Urea Nitrogen 39 mg/dL (8-24); Bun/Creatinine Ratio 41.6 (12.0-20.0); CO2, Blood 37 mmol/L (21-32); Calcium, Blood 9.5 mg/dL (8.5-10.1); Chloride, Blood 98 mmol/L (98-108); Creatinine, Blood 0.94 mg/dL (0.40-1.00); Glomerular Filtration Rate >60 (60-); Glucose, Blood 97 mg/dL (70-99); Phosphorus, Blood 3.5 mg/dL (2.5-4.9); Potassium, Blood 4.7 mmol/L (3.5-5.5); Sodium, Blood 137 mmol/L (136-145)
--- NOTE | 2020-10-05 07:12 | NUR ---
SHIFT SUMMARY PT RESTED WELL THROUGH NIGHT. PT ABLE TO MAKE NEEDS KNOWN. PT BECOMING AGITATED THORUGHOUT NIGHT AND TEARING BIPAP OFF - PRN HALDOL GIVEN. TELE NSR. BIPAP REMAINS - TRIALED ME, BUT PT DESATTING INTO 80'S. BIPAP REMAINS REST OF NIGHT. COPE DRIANING TO GRAVITY - VJ CARE PERFORMED. NO BM. NO C/O PAIN. VSS. CALL LIGHT WITIN REACH, BED IN LOWEST POSITION. WILL CONTIUE TO MONITOR.
--- NOTE | 2020-10-05 18:43 | NUR ---
PT SUMMARY: NO ACUTE CHANGE FOR THE SHIFT, PT WAS ON 10L OF O2 THIS AM, PT WAS ABLE TO TOLERATE 4-6L VIA HI CHAO SATS ABOVE 90% PT DESATS TO 84% WITH EXERTION/TRANSFERS, BP SYSTOLIC 98, METOPROLOL IV HELD, AFEBRILE. PT DENIES ANY PAIN FOR THE SHIFT, PT WORKED WELL WITH THERAPY WITH NO ISSUES, HAS BEEN UP IN THE RECLINER FOR MEALS. PT REMAINS ALERT AND ORIENTED X3, CONFUSED AT TIMES BED ALARM AND TAB ALARM ON FOR SAFETY, FOLLOWS DIRECTION. COPE DRAINING ADEQUATE AMOUNT OF DARK YELLOW URINE. PT TO POSSIBLY DISCHARGE TO SNF IF STABLE PER PT RECOMMENDATION. NO OTHER ISSUES ENCOUNTERED FOR THE SHIFT, ABLE TO MAKE NEEDS KNOWN, CALL LIGHTS IN REACH WILL REPORT TO ONCOMING SHIFT
--- NOTE | 2020-10-06 06:10 | NUR ---
SHIFT SUMMARY PATIENT IS ALERT AND ORIENTED X3, DOES NOT KNOW YEAR, HAS MOMENTS OF CONFUSION THROUGH THE NIGHT. REPOSITIONED Q2 HOURS. 0XYGEN NEEDS VARIED THROUGH THE NIGHT FROM 5-7L VIA NC, 02 SATS >90%. PATIENT WORE BIPAP FOR ABOUT 3-4 HOURS, WAS NOT WANTING TO SLEEP. VSS, NO ACUTE CHANGES. CALL LIGHT IN REACH.
--- NOTE | 2020-10-06 14:20 | NUR ---
REPORT GIVEN TO CHANTELLE RUIZ ON MEDICAL.
--- NOTE | 2020-10-06 14:51 | NUR ---
PT ARRVIED TO ROOM 333 VIA W/C FROM PCU 9. ASSISTED INTO BED AND ORIENTED TO ROOM, PHONES AND CALL ROSAS SYSTEM. NO C/O PAIN OR OTHER DISCOMFORT, CALL ROSAS IN REACH AND BED ALARM ARMED. WILL MONITOR
--- NOTE | 2020-10-06 17:29 | NUR ---
PT UP TO BEDSIDE CHAIR WITH 2 ASSIST, WAITING FOR DINNER AND MAKING PHONE CALLS. NO ACUTE CHANGES, WILL CONTINUE TO MONITOR AND REPORT TO ONCOMING RN
--- NOTE | 2020-10-07 04:12 | NUR ---
CHIEF AIRPORT GUIDE SUMMARY PT A&OX3, FORGETFUL AT TIMES. SOME CONFUSION NOTED, EASILY REDIRECTABLE BY STAFF. PLEASANT AND COOPERATIVE WITH CARE. PT MEDICATED FOR PAIN PER EMAR. NO C/O CP OR N&V. PT ON 4LPM O2 VIA NC SATS >90%. SOB W/ EXERTION NOTED. PT 1-2P ASSIST W/ FWW TO BSC. PT CALM AND RESTED IN BED T/O SHIFT. BED AT LOWEST POSITION W/ ALARM ON, CALL LIGHT WITHIN REACH.
[2020-10-07 05:54] LABS: BASOPHILS ABSOLUTE AUTO 0.07 K/mm3 (0.00-0.23); BASOPHILS PERCENT AUTO 1 % (0-2); EOSINOPHILS ABSOLUTE AUTO 0.29 K/mm3 (0.00-0.68); EOSINOPHILS PERCENT AUTO 5 % (0-6); Hematocrit 43.5 % (33.0-51.0); IMMATURE GRAN ABSOLUTE AUTO 0.02 K/mm3 (0.00-0.10); IMMATURE GRAN PERCENT AUTO 0 % (0-1); LYMPHOCYTES ABSOLUTE AUTO 1.33 K/mm3 (0.84-5.20); LYMPHOCYTES PERCENT AUTO 23 % (21-46); MONOCYTES ABSOLUTE AUTO 0.91 K/mm3 (0.16-1.47); MONOCYTES PERCENT AUTO 16 % (4-13); Mean Corpuscular HGB 35.1 pg (26.0-34.0); Mean Corpuscular HGB Conc 32.2 g/dL (31.5-36.5); Mean Corpuscular Volume 109 fL (80-100); Mean Platelet Volume 10.3 fL (9.1-12.4); NEUTROPHILS ABSOLUTE AUTO 3.26 K/mm3 (1.96-9.15); NEUTROPHILS PERCENT AUTO 56 % (41-73); Platelet Count 279 K/mm3 (150-400); RDW Coefficient Variation 14.5 % (11.7-14.2); RDW Standard Deviation 58.2 fL (35.1-46.3); Red Blood Cell Count 3.99 M/mm3 (3.80-5.20); White Blood Cell Count 5.88 K/mm3 (4.00-11.30)
[2020-10-07 06:08] LABS: Anion Gap 3 mmol/L (6-16); Blood Urea Nitrogen 38 mg/dL (8-24); Bun/Creatinine Ratio 41.2 (12.0-20.0); CO2, Blood 38 mmol/L (21-32); Calcium, Blood 9.8 mg/dL (8.5-10.1); Chloride, Blood 101 mmol/L (98-108); Creatinine, Blood 0.92 mg/dL (0.40-1.00); Glomerular Filtration Rate >60 (60-); Glucose, Blood 87 mg/dL (70-99); Potassium, Blood 4.3 mmol/L (3.5-5.5); Sodium, Blood 142 mmol/L (136-145)
--- NOTE | 2020-10-07 18:32 | NUR ---
PT TO BE DISCHARGED TO SNF IN THE AM IF BED AVAILABLE. PT IS AWARE AND LOOKING FOR TO DISCHARGE, HOPES TO RETURN HOME AFTER REHAB. NO C/O OF PAIN OR OTHER DISCOMFORT TODAY, WILL CONTINUE TO MONITOR AND REPORT TO ONCOMING RN
--- NOTE | 2020-10-08 05:09 | NUR ---
SHIFT SUMMARY- PT. A&O, AWAKE MOST OF THE NIGHT TALKING TO HERSELF. HAD NO C/O PAIN OR DISCOMFORT DURING THE NIGHT, NO APPARENT DISTRESS NOTED. ON 4L NC, 1 ASSIST TO BSC, PULL UP ON. PT. ANTICIPATING D/C TO SNF, VSS. CALL LIGHT WITHIN REACH, SIDE RAILS UPX2, AND BED ALARM ON FOR SAFETY. WILL CONT TO MONITOR.
[2020-10-08 05:56] LABS: Triglycerides 79 mg/dL (30-160)
--- NOTE | 2020-10-08 19:16 | NUR ---
SHIFT SUMMARY PT IS AOX4. PT MEDICATED FOR HEADACHE X1 PER EMAR. PT DENIES N/V, SOB. PT IS ONE PERSON ASSIST IN ROOM. PT WORKED WITH PT TODAY AND DID WELL. PLAN IS FOR PT TO DC TO SNF. PT IS IN BED, CALL LIGHT IN REACH, BED IN LOW POSITION.
--- NOTE | 2020-10-09 05:35 | NUR ---
SHIFT SUMMARY- PT. HAD NO COMPLAINTS DURING THE NIGHT. NOTED SATS IN THE LOW-MID 80'S LAST NIGHT. RT INCREASED O2 FROM 4L TO 6L NC, SATS MAINTAINED AT 92%. PT. OCCASIONALLY IMPULSIVE DURING THE NIGHT. DISCUSSED WITH PT. FALL PREVENTION AND SAFETY. ADVISED TO USE CALL LIGHT FOR ASSISTANCE, VERBALIZED UNDERSTANDING. PT. APPEARED TO HAVE RESTED COMFORTABLY THE REST OF THE NIGHT, NO APPARENT DISTRESS NOTED. CALL LIGHT WITHIN REACH, SIDE RAILS UPX2, AND BED ALARM ON FOR SAFETY. WILL CONT TO MONITOR.
--- NOTE | 2020-10-09 17:26 | NUR ---
SHIFT SUMMARY PT IS AO TO SELF AND SURROUNDINGS AND CONFUSED. PT MEDICATED FOR PAIN X2. PT DENIES N/V, SOB. PT IS ONE PERSON ASSIST IN ROOM AND IMPULSIVE. POTENTIAL DC TO SNF. PT HAD A CHEST XRAY TO MONITOR IF COPD EXACERBATION WORSENED DUE TO DROPPING O2 SATS. PT IS NOW ON 6 L O2 VIA HUMIDIFIED OXYGEN AND CONTINOUS PULSE OXYMETER. PT DID NOT HAVE VISITORS THIS ZOE. PT APPETITE IS GOOD. PT IS IN CHAIR, CALL LIGHT IN REACH, ALARM ON.
--- NOTE | 2020-10-10 06:03 | NUR ---
SHIFT SUMMARY- PT. A&O WITH INTERMITTENT CONFUSION AND AUDITORY HALLUCINATIONS. ON 8L HIGH FLOW HUMIDIFIED NC. PT. DESATS QUICKLY TO THE 80'S, NO C/O SOB. HAD OCCASIONAL HACKING COUGH. C/O RUBI THIS AM, MEDICATED W/TYLENOL PER EMAR WITH GOOD EFFECT. SLEPT ON/OFF DURING THE NIGHT, NO APPARENT DISTRESS NOTED. CALL LIGHT WITHIN REACH AND SIDE RAILS UPX2. WILL CONT TO MONITOR.
--- NOTE | 2020-10-10 19:46 | NUR ---
SHIFT SUMMARY: NO ACUTE CHANGES TO REPORT THIS SHIFT. PT A&O; FORGETFUL; IMPULSIVE; BED ALARM & CHAIR ALARMS ON FOR SAFETY. O2 @ 7L HIGH-FLOW; PT USES 4L @ HOME. DIURESIS CONTINUING. PT/OT FOLLOWING. AWAITING SNF PLACEMENT WHEN O2 DEMANDS DECREASE. REPORT GIVEN TO ONCOMING RN.
--- NOTE | 2020-10-11 07:23 | NUR ---
SHIFT SUMMARY: A&OX4,VSS, MAINTAINS SATS 90-93% 0N 6L VIA HIGH FLOW TUBBING, WHIL AWAKE. DESATS TO THE 70'S DURING SLEEP ON 8L. PATIENT IS CONFUSED WHEN SATS DROP. BED AND CHAIR ALARM ARE ON FOR SAFETY.
[2020-10-11 12:15] LABS: Hematocrit 41.5 % (33.0-51.0); Hemoglobin 13.1 g/dL (11.5-16.0)
[2020-10-11 12:33] LABS: Anion Gap 3 mmol/L (6-16); Blood Urea Nitrogen 27 mg/dL (8-24); Bun/Creatinine Ratio 32.4 (12.0-20.0); CO2, Blood 38 mmol/L (21-32); Calcium, Blood 10.2 mg/dL (8.5-10.1); Chloride, Blood 97 mmol/L (98-108); Creatinine, Blood 0.83 mg/dL (0.40-1.00); Glomerular Filtration Rate >60 (60-); Glucose, Blood 90 mg/dL (70-99); Phosphorus, Blood 3.2 mg/dL (2.5-4.9); Potassium, Blood 4.4 mmol/L (3.5-5.5); Sodium, Blood 138 mmol/L (136-145)
--- NOTE | 2020-10-11 19:24 | NUR ---
SHIFT SUMMARY: NO ACUTE CHANGES TO REPORT THIS SHIFT. PT A&O; OCC CONFUSION WHEN O2 SATS DROP; CALM AND COOPERATIVE WITH CARE. O2 @ 7L [id number]. PT UP WITH ONE-ASSIST TO BATHROOM; GAIT IMPROVING; PT&OT FOLLOWING. EXPECTED D/C TO SNF WHEN O2 DEMANDS DECREASE (O2 @ 4L @ HOME). REPORT GIVEN TO ONCOMING RN.
--- NOTE | 2020-10-12 00:28 | NUR ---
RESPIRATORY: PATIENT IS RESTLESS, MOUTH BREATHING WITH HIGH FLOW NC ON AT 7L, SATS 68-85%. INCREASED 02 TO 15L AND CALLED RT. RT RECOMMENDS BIPAP, DR STORM IS CALLED. AWAITING CALL BACK.
--- NOTE | 2020-10-12 02:03 | NUR ---
RESPIRATORY: ORDERS WERE OBTAINED FOR BIPAP PROTOCOL AND ATIVAN PRN. AT THIS TIME PATIENT IS TOLERATING BIPAP WELL. SATS ARE 95-97% ON 7L BLEED IN TO BIPAP. BED ALARM IS ON.
--- NOTE | 2020-10-12 04:02 | NUR ---
RESPIRATORY: PATIENT IS ANXIOUS AND RESTLESS IN BED. REPORTING ITCHING AND CAN'T RELAX. NC IS ON 7L, SATS ARE DIPPING INTO THE 80'S. 0.5MG OF ATIVAN IS GIVEN AND BIPAPN IS PLACED. SAT IS 96% ON BIPAP WITH 7L BLEED IN. BED ALARM IS ON.
--- NOTE | 2020-10-12 16:36 | NUR ---
SUMMARY- PT ALERT AND ORIENTED X4. UP SINCE EARLY THIS AM AMBULATED TO BATHROOM WALKER SBA, GOOD STRENGTH AND STEADY GAIT. MIN SOB NOTED WITH ACTIVITY. PT LATER AMBULATED WITH PT AROUND THE UNIT 400 FT ON 8L O2 HIGH FLOW WITH SATS OF 94%, ABLE TO STAY VERBAL WITH REPORTED LITTLE SOB. SAT UP IN THE CHAIR MOST OF THE DAY. SATS 92% WITH 8L, TURNGD DOWN TO 6. PT UNABLE TO TOLERATD CPAP DURING NAP, FACE BECAME SWEATY, PT PANICKED AND PULLED IT OFF STATING i CANT FUNCTION WITH THIS THING!! ID RATHER STAY AWAKE SITTING UP. SO SHE GOT BACK IN HER CHAIR AND NAPPED WITH HIGH FROW O2. NC SLIPS TO SIDE OF NOSE FREQ AND PT HAS THROWN O2 ON THE FLOOR A TIME OR 2. REMINDED OF IMPORTANCE. PT USES FLUTTER FREQ AND HAS OCCASIONAL COUGHING EPPISODES. STATES SHE IS CLEARING MOD AMT CLEAR SECRETIONS. HEADACHE THIS AM RELEIVED WITH TYLENOL.
--- NOTE | 2020-10-13 04:49 | NUR ---
SHIFT SUMMARY PT HAS BEEN ANXIOUS & RESTLESS T/O THE NIGHT, ZYPREXA X1 & 1MG ATIVAN X2 AND PT STILL TALKING OUT AND C/O NOT BEING ABLE TO RELAX; REFUSED BIPAP T/O THE SHIFT, MOVED SEVERAL TIMES BETWEEN BED & CHAIR T/O THE NIGHT, SLEEPING IN CHAIR AT THIS TIME W/CHAIR ALARM IN PLACE, CALL LIGHT IN REACH, WILL CONT TO MONITOR UNTIL REPORT GIVEN TO DAY RN.
[2020-10-13 08:52] LABS: PCO2 Arterial 63 mmHg (35-45); PO2 Arterial 75 mmHg (80-100)
--- NOTE | 2020-10-13 17:34 | NUR ---
SHIFT SUMMARY PATIENT ALERT AND ORIENTED THIS SHIFT. PATIENT WALKS WITH STANDBY ASSIST WITH FWW. PATIENT TITRATED DOWN TO 5L O2 FROM 8L THIS AM. PATIENT O2 SAT REMAIN > 90. PATIENT MEDICATED 1X THIS AFTERNOON FOR HEADACHE. PATIENT CURRENTLY SITTING UP IN CHAIR WATCHING TELEVISION.
--- NOTE | 2020-10-14 05:09 | NUR ---
SHIFT SUMMARY PT SLEPT INTERMITTENTLY T/O THE NIGHT IN RECLINER, REFUSED BIPAP, UP SEVERAL TIMES TO VOID, CURRENT SAT=95% ON 4L, PT UP TO RECLINER @ THIS TIME WATCHING TV, CALL LIGHT IN REACH, CHAIR ALARM IN PLACE, WILL CONT TO MONITOR UNTIL REPORT GIVEN TO DAY RN.
--- NOTE | 2020-10-14 17:37 | NUR ---
SHIFT SUMMARY PATIENT ALERT, ORIENTED X3 THIS SHIFT. PATIENT AMBULATES TO THE BATHROOM WITH FWW AND 1 ASSIST. PATIENT SITTING UP IN RECLINER THIS SHIFT. PATIENT STATES SHE HAD A MUCH BETTER NIGHT IN THE RECLINER. PATIENT ON 4L O2 THIS SHIFT. PATIENT APREHENSIVE ON PENDING DISCHARGE. PATIENT WORKED WITH PT THIS SHIFT. PATIENT REASSURED SHE DOES NOT REQUIRE SNF IN HER CURRENT CONDITION. PATIENT SITTING UP IN RECLINER EATING DINNER.
--- NOTE | 2020-10-15 05:16 | NUR ---
SUMMARY PT HAD NO NEW ISSUES NOTED. PT DID NOT USE TRILOGY THIS SHIFT. PT PREFERRED TO SLEEP W/ NC IN RECLINER. PT SLEPT OFF AND ON. PT DENIED ANY SOB OR CX PAIN. PT SPO2 >88% T/O SHIFT. PT HAS VOIDED WELL AND AMBULATED W/ FWW. PT TOLERATED EXERTION WELL. PT CURRENTLY RESTING AND IN NO DISTRESS. CALL LIGHT IN REACH.
[2020-10-15] MEDS ORDERED: FAMO20 PO (14:05)
[2020-10-15] MEDS ORDERED: ACET325 PO (14:06)
[2020-10-15] MEDS ORDERED: ALBU2.5V5 INH (14:06)
[2020-10-15] MEDS ORDERED: MULVITA PO (14:07)
[2020-10-15] MEDS ORDERED: SILD25T PO (14:08)
[2020-10-15] MEDS ORDERED: MAGNESIUM OXID500 MG PO (14:08)
--- NOTE | 2020-10-15 15:02 | NUR ---
DISCHARGE PT DISCHARGED WITH NO ACUTE CHANGES IN ASSESSMENT FROM THIS AM. PT SHOWERED THIS AM AND HAD HOME O2 EVAL COMPLETED. 4L O2 REQUIRED AT ALL TIMES. [facility] DELIVERED PORTABLE O2 AND FOUR WHEEL WALKER PRIOR TO PT DC. PAULA ALSO EDUCATED PT & BROTHER, STEPHEN, ON THE USE OF THE TRILOGY. THIS RN EDUCATED PT AND BROTHER ON NEW MEDS AND HOW TO TAKE THEM. PT WAS INSTRUCTED TO MAKE AN APPOINTMENT WITH HER PCP MARYAN AND MAKE AN APPOINTMENT WITH A JIG BOX OPERATOR WELL. PT & STEPHEN STATE THEY UNDERSTAND AND HAVE NO FURTHER QUESTIONS. BELONGINGS SENT HOME WITH PT AND NEBULIZER TO BE DELIVERED TO HER HOUSE LATER. HOME HEALTH TO FOLLOW. PT WHEELED OUT BY THIS RN & DRIVEN HOME BY .
== END 2020-10-15 14:32 | disposition home health service (06) | DRG 291 ==
LOC: ER 10:58 → PCU 19:46 → MEDS 19:46 → ICUW 09-26 04:26 → PCU 09-26 10:01 → MEDS 10-06 14:51
PROVIDERS: Family Medicine; Internal Medicine; Physician Assistant; ADMIT Family Medicine
PROC: 5A09357 Assistance with Respiratory Ventilation, Less than 24 Consecutive Hours, Continuous Positive Airway Pressure (ICD-10-PCS; principal; 2020-09-26)
DX: I11.0 Hypertensive heart disease with heart failure (principal); I50.31 Acute diastolic (congestive) heart failure; G92 Toxic encephalopathy; R65.20 Severe sepsis without septic shock; J96.22 Acute and chronic respiratory failure with hypercapnia; J15.5 Pneumonia due to Escherichia coli; J14 Pneumonia due to Hemophilus influenzae; J69.0 Pneumonitis due to inhalation of food and vomit; A41.51 Sepsis due to Escherichia coli [E. coli]; F10.239 Alcohol dependence with withdrawal, unspecified; Z79.84 Long term (current) use of oral hypoglycemic drugs; Z96.653 Presence of artificial knee joint, bilateral; E11.9 Type 2 diabetes mellitus without complications; Z66 Do not resuscitate; Z20.822 Contact with and (suspected) exposure to COVID-19; J44.9 Chronic obstructive pulmonary disease, unspecified; E03.9 Hypothyroidism, unspecified; Z87.891 Personal history of nicotine dependence; E66.01 Morbid (severe) obesity due to excess calories; Z68.39 Body mass index [BMI] 39.0-39.9, adult; I27.20 Pulmonary hypertension, unspecified; G47.33 Obstructive sleep apnea (adult) (pediatric); Z99.81 Dependence on supplemental oxygen; K21.9 Gastro-esophageal reflux disease without esophagitis
CPT/HCPCS: 0241U; 36415; 36600; 62328; 70450; 70470; 71045; 71046; 71250; 71260; 74150; 80048; 80053; 80069; 81003; 82140; 82550; 82553; 82607; 82746; 82803; 82945; 82947; 83520; 83605; 83735; 83880; 84100; 84145; 84157; 84439; 84443; 84478; 84484; 85014; 85018; 85025; 85027; 85379; 85610; 85651; 85730; 86256; 87040; 87070; 87077; 87185; 87186; 87205; 87483; 89051; 93005; 93010; 93306; 94640; 94660; 94664; 94667; 94668; 94760; 94762; 96374; 96376; 97110; 97116; 97161; 97162; 97166; 97530; 97535; 98960; 99282; 99285-25; A9270; C1751; J0696; J1630; J1650; J1940; J2060; J3411; J3475; J7050; J7060; Q9967

== ENCOUNTER → 2020-12-29 | Outpatient (CLI) | payer MEDICARE, OTHER ==
[~2020-12-29] MED LIST changes: +ALBU2.5V5 INH; +ALBU90OI INH; +ATOR20 PO; +Aspir 8181 MG PO; +FAMO20 PO; +FURO20 PO; +MAGNESIUM OXID500 MG PO; +METF500 PO; +MULVITA PO; +Prinivil10 MG PO; +SILD25T PO
[2020-12-31 08:10] LABS: HPV 16 Negative (Negative); HPV 18 Negative (Negative); HPV OTHER HR TYPES Negative (Negative)
== END | disposition home or self-care (01) ==
LOC: LAB 13:36 → LAB SHORT 13:36
PROVIDERS: Nurse Practitioner Family
DX: Z12.4 Encounter for screening for malignant neoplasm of cervix (principal); Z11.51 Encounter for screening for human papillomavirus (HPV)
CPT/HCPCS: 87624; 88142

== ENCOUNTER 2021-10-26 15:05 | Inpatient (IN) | payer MEDICARE, OTHER ==
[~2021-10-26] VITALS: Ht 162.6 cm; Wt 74.8 kg
[~2021-10-26 15:05] MED LIST changes: -SILD25T PO
[2021-10-26 17:08] LABS: Hematocrit 43.3 % (33.0-51.0); Hemoglobin 12.9 g/dL (11.5-16.0); Mean Corpuscular HGB 30.9 pg (26.0-34.0); Mean Corpuscular HGB Conc 29.8 g/dL (31.5-36.5); Mean Corpuscular Volume 104 fL (80-100); Mean Platelet Volume 9.9 fL (9.1-12.4); NRBC ABSOLUTE 0.36 K/mm3 (0.00-0.02); NRBC Auto 2.2 /100 WBC (0.0-0.2); Platelet Count 452 K/mm3 (150-400); RDW Coefficient Variation 20.5 % (11.7-14.2); RDW Standard Deviation 76.1 fL (35.1-46.3); Red Blood Cell Count 4.17 M/mm3 (3.80-5.20); White Blood Cell Count 16.14 K/mm3 (4.00-11.30)
[2021-10-26 17:32] LABS: BASOPHILS PERCENT MAN 0 % (0-2); EOSINOPHILS PERCENT MAN 0 % (0-6); LYMPHOCYTES ABSOLUTE MAN 2.58 K/mm3 (0.84-5.20); LYMPHOCYTES PERCENT MAN 16 % (21-46); MONOCYTES ABSOLUTE MAN 0.48 K/mm3 (0.16-1.47); MONOCYTES PERCENT MAN 3 % (4-13); MYELOCYTE ABSOLUTE MAN 0.48 K/mm3 (0.00-0.00); MYELOCYTE PERCENT MAN 3 % (0-0); NEUTROPHILS ABSOLUTE MAN 12.58 K/mm3 (1.96-9.15); SEG NEUTROPHILS PERCENT MAN 78 % (41-73); TOTAL CELLS COUNTED 100
[2021-10-26 17:43] LABS: Alanine Aminotransfer (ALT/SGP 44 U/L (12-78); Albumin, Blood 2.3 g/dL (3.4-5.0); Albumin/Globulin Ratio 0.5 (0.8-1.8); Alk Phos 100 U/L (50-136); Anion Gap Unable to Calculate mmol/L (6-16); Aspartate Aminotrans (AST/SGOT 31 U/L (12-37); Bilirubin, Total 0.4 mg/dL (0.1-1.0); Blood Urea Nitrogen 45 mg/dL (8-24); Bun/Creatinine Ratio 44.6 (12.0-20.0); CO2, Blood 40 mmol/L (21-32); Calcium, Blood 9.7 mg/dL (8.5-10.1); Chloride, Blood 100 mmol/L (98-108); Creatinine, Blood 1.01 mg/dL (0.40-1.00); Globulin, Blood 5.1 g/dL (2.2-4.0); Glomerular Filtration Rate 55 (60-); Glucose, Blood 103 mg/dL (70-99); Potassium, Blood 3.9 mmol/L (3.5-5.5); Sodium, Blood 138 mmol/L (136-145); Total Protein, Blood 7.4 g/dL (6.4-8.2)
[2021-10-26 18:32] LABS: Influenza A, PCR NEGATIVE (NEGATIVE); Influenza B, PCR NEGATIVE (NEGATIVE); Resp Syncytial Virus, PCR NEGATIVE (NEGATIVE); SARS-Cov-2 (COVID-19) PCR, MMC NEGATIVE (NEGATIVE)
[2021-10-26] MEDS ORDERED: SILD25T PO (21:46)
[2021-10-27 04:44] LABS: Hemoglobin 12.5 g/dL (11.5-16.0); Mean Corpuscular HGB 30.9 pg (26.0-34.0); Mean Corpuscular HGB Conc 29.8 g/dL (31.5-36.5); Mean Corpuscular Volume 104 fL (80-100); Mean Platelet Volume 9.8 fL (9.1-12.4); NRBC ABSOLUTE 0.28 K/mm3 (0.00-0.02); NRBC Auto 1.7 /100 WBC (0.0-0.2); Platelet Count 448 K/mm3 (150-400); RDW Coefficient Variation 20.5 % (11.7-14.2); RDW Standard Deviation 75.9 fL (35.1-46.3); Red Blood Cell Count 4.04 M/mm3 (3.80-5.20); White Blood Cell Count 16.28 K/mm3 (4.00-11.30)
[2021-10-27 05:04] LABS: Bun/Creatinine Ratio 38.2 (12.0-20.0); Calcium, Blood 9.4 mg/dL (8.5-10.1); Creatinine, Blood 1.02 mg/dL (0.40-1.00); Potassium, Blood 4.9 mmol/L (3.5-5.5)
--- NOTE | 2021-10-27 05:36 | NUR ---
SHIFT SUMMARY: A/O X2 DISORIENTED TO TIME AND PLACE AND OCCASSIONALLY SITUATION. RESLESSNESS DURING THIS SHIFT, SEVERAL ATTEMPTS TO GET OUT OF BED. RE-ORIENTED PATIENT TO PLACE, TIME AND SITUATION. INDEPENDENT REPOSITIONING IN BED, 2 PERSON ASSIST TO BOOST PATIENT. BED ALARM REMAINS ACTIVATED, BED IN LOW POSITION, CALL ROSAS IN REACH.
--- NOTE | 2021-10-27 07:51 | NUR ---
0100 CARMEN JOHNSTON NOTIFIED PTS INCREASED ANXIETY MD GAVE TELEPHONE ORDER FOR ONE TIME PRN ATIVAN O.5MG. ADDITIONAL TELEPHONE ORDER FOR BIPAP/CPAP AND CONTINUOUS PULSE OX. 0430 CARMEN JOHNSTON NOTIFIED PTS INCREASED O2 NEEDS BIPAP UP TO 7L O2, NASAL CANNULA HIGH FLOW INCREASED 9-11 L. DESATS QUICKLY DOWN TO 50'S-60'S O2 PERCENTAGE WHEN REMOVING OXYGEN. FREQUENT REMINDER TO KEEP O2 ON. MD AWARE NO ADDITIONAL INTERVENTIONS AT THIS TIME. CONTINUE TO MONITOR.
--- NOTE | 2021-10-27 17:34 | NUR ---
DAY SHIFT SUMMARY 65 YR OLD FEMALE PT ADMIT FOR SEPSIS/BILATERAL PNEUMONIA. A/O X3, INDEPENDENT WITH WALKER. PRODUCTIVE COUGH, YELLOW/BROWN SPEUTUM. PT ON 12L O2 NC WITH HUMIDITY. PT DECIDED TO GET IN SHOWER TODAY WITHOUT NOTIFYING STAFF. PT WENT INTO BATHROOM AND REMOVED TELE, IV, AND O2. TELE, IV AND O2 REPLACED ON PT. TELE WITH SINUS AT 62 MOST OF THE DAY WITH A FEW MOMENTS OF V-TACH THIS SHIFT. PT IS CONFUSED AT TIMES. WHEN BI-OX BEEPS SHE YELLS AND THROWS THINGS AT THE BOX, PT TALKS LOUDLY TO HERSELF SOMETIMES YELLING A USING VULAR LANGUAGE. CALL LIGHT IS WITHIN REACH AND ABLE TO CALL. FREQUENT ROUNDING ON PT.
--- NOTE | 2021-10-28 00:56 | NUR ---
NURSE NOTE: DOTTY JOHNSTON NOTIFIED HELD DOSE OF SILDENAFIL DUE TO SOFT BP'S SYSTOLIC 90'S. PRIOR BP AT THAT TIME 98/64 HR 57, BP RECHECK 116/69. AWARE OF BRADYCARDIA HR SUSTAINING 50'S, NONSYMPTOMATIC. OKAY WITH HOLDING NIGHT TIME DOSE OF SILDENAFIL. DOES NOT WANT TO PUT BP PARAMETERS ON THIS MEDICATION AT THIS TIME. NO INTERVENTIONS, CONTINUE TO MONITOR HR AND BP AND NOTIFY IF WORSENED OR SYMPTOMATIC.
--- NOTE | 2021-10-28 04:18 | NUR ---
SHIFT SUMMARY: CONTINUED RESTLESSNESS THROUGHOUT THE NIGHT, OFF AND ON SLEEPING. FREQUENTLY REMOVING OXYGEN AND QUICKLY DESATS. PT EXPRESSES OFF AND ON ANXIETY AND IRRITABLITY. RESPIRATORY ASSIST TO MANAGE BIPAP AND HIGH FLOW NASAL CANNULA O2 SATURATIONS. 12L O2 CONNECTED TO BIPAP. STANDBY ASSIST X1 FOR VERBAL CUES WHEN AMBULATING. TELEMETRY SINUS MD DEB NOTIFIED OF ASYMPTOMATIC BRADYCARDIA- NO INTERVENTIONS. BED ALARM ACTIVATED, BED IN LOW POSITION, CALL ROSAS AND BELONGINGS IN REACH.
[2021-10-28 05:00] LABS: BASOPHILS ABSOLUTE AUTO 0.04 K/mm3 (0.00-0.23); BASOPHILS PERCENT AUTO 0 % (0-2); EOSINOPHILS PERCENT AUTO 0 % (0-6); Hematocrit 36.4 % (33.0-51.0); Hemoglobin 11.1 g/dL (11.5-16.0); IMMATURE GRAN ABSOLUTE AUTO 0.37 K/mm3 (0.00-0.10); IMMATURE GRAN PERCENT AUTO 2 % (0-1); LYMPHOCYTES ABSOLUTE AUTO 0.49 K/mm3 (0.84-5.20); LYMPHOCYTES PERCENT AUTO 3 % (21-46); MONOCYTES ABSOLUTE AUTO 0.25 K/mm3 (0.16-1.47); MONOCYTES PERCENT AUTO 2 % (4-13); Mean Corpuscular HGB 31.4 pg (26.0-34.0); Mean Corpuscular HGB Conc 30.5 g/dL (31.5-36.5); Mean Corpuscular Volume 103 fL (80-100); Mean Platelet Volume 10.1 fL (9.1-12.4); NEUTROPHILS ABSOLUTE AUTO 14.62 K/mm3 (1.96-9.15); NEUTROPHILS PERCENT AUTO 93 % (41-73); NRBC Auto 0.6 /100 WBC (0.0-0.2); Platelet Count 412 K/mm3 (150-400); RDW Coefficient Variation 20.1 % (11.7-14.2); RDW Standard Deviation 73.1 fL (35.1-46.3); Red Blood Cell Count 3.54 M/mm3 (3.80-5.20); White Blood Cell Count 15.77 K/mm3 (4.00-11.30)
[2021-10-28 06:24] LABS: Calcium, Blood 9.4 mg/dL (8.5-10.1); Creatinine, Blood 1.28 mg/dL (0.40-1.00)
--- NOTE | 2021-10-28 08:21 | NUR ---
pt laying in bed with cpap on, removed and placed her on 12 liters 02 what she has been on, sats 95% on the 12 liters, she is irritable, impulsive, needs iv this am as she pulled the one she had, lungs are course, rhonci with exp wheeze, no cough noted, hrr, tele in place running sr per ekg monitor tech, see strip, no edema noted, ppp+1, cap refill <3sec, vs stable, afebrile, btx4, abd flat soft notender, voids via bathroom, skin is c/w/d, maew, sba, serena, call up to chair for breakfast, call light in reach.
--- NOTE | 2021-10-28 09:35 | NUR ---
NEW IV PLACED TO R FA, SITE IS CLEAR AND PATENT, PT IN BETTER SPIRITS, BUT VERY VERBOSE, SITTING UP IN CHAIR, REMOVES O2 AND DESATS QUICKLY, IMPULSIVE, CALL LIGHT IN REACH.
[2021-10-28 11:36] LABS: PCO2 Arterial 57.9 mmHg (35-45); PO2 Arterial 66.2 mmHg (80-100); pH Blood Arterial 7.41 (7.35-7.45)
--- NOTE | 2021-10-28 18:33 | NUR ---
pt has sat in chair all this shift, she is very loud, complains and swears about everything that frustrates her, no acute changes this shift. call light in reach.
--- NOTE | 2021-10-29 04:07 | NUR ---
SHIFT SUMMARY: A/OX3 DISORIENTED TO TIME. TONIGHT PT HAS HAD DECREASED RESTLESSNESS, ABLE TO SIT STILL COMFORTABLY, NOT PULLING OFF OXYGENATION. DECREASED ANXIETY OBSERVED COMPARED TO PREVIOUS NIGHTS, PT HAVING INCREASED PERIODS OF REST. BED ALARM ACTIVATED, BED IN LOW POSITION, CALL ROSAS AND BELONGINGS IN REACH. CONTINUED 1 PERSON STAND BY ASSIST. OXYGENATION 7-9L HIGH FLOW NASAL CANNULA.
[2021-10-29 05:50] LABS: BASOPHILS ABSOLUTE AUTO 0.03 K/mm3 (0.00-0.23); BASOPHILS PERCENT AUTO 0 % (0-2); EOSINOPHILS PERCENT AUTO 0 % (0-6); Hematocrit 38.7 % (33.0-51.0); Hemoglobin 11.7 g/dL (11.5-16.0); IMMATURE GRAN ABSOLUTE AUTO 0.22 K/mm3 (0.00-0.10); IMMATURE GRAN PERCENT AUTO 1 % (0-1); LYMPHOCYTES ABSOLUTE AUTO 0.35 K/mm3 (0.84-5.20); LYMPHOCYTES PERCENT AUTO 2 % (21-46); MONOCYTES ABSOLUTE AUTO 0.33 K/mm3 (0.16-1.47); MONOCYTES PERCENT AUTO 2 % (4-13); Mean Corpuscular HGB 31.7 pg (26.0-34.0); Mean Corpuscular HGB Conc 30.2 g/dL (31.5-36.5); Mean Corpuscular Volume 105 fL (80-100); Mean Platelet Volume 9.8 fL (9.1-12.4); NEUTROPHILS ABSOLUTE AUTO 15.73 K/mm3 (1.96-9.15); NEUTROPHILS PERCENT AUTO 94 % (41-73); NRBC ABSOLUTE 0.05 K/mm3 (0.00-0.02); NRBC Auto 0.3 /100 WBC (0.0-0.2); Platelet Count 424 K/mm3 (150-400); RDW Coefficient Variation 20.6 % (11.7-14.2); RDW Standard Deviation 73.2 fL (35.1-46.3); Red Blood Cell Count 3.69 M/mm3 (3.80-5.20); White Blood Cell Count 16.66 K/mm3 (4.00-11.30)
[2021-10-29 06:01] LABS: Bun/Creatinine Ratio 41.8 (12.0-20.0); Calcium, Blood 9.8 mg/dL (8.5-10.1); Creatinine, Blood 1.34 mg/dL (0.40-1.00); Potassium, Blood 5.1 mmol/L (3.5-5.5)
--- NOTE | 2021-10-29 08:00 | NUR ---
pt sitting up in the chair, fidgity and gets frustrated with every little thing and is very verbal, a/ox3, pleasant and cooperative with care, follows commands well, denies pain, states her breathing is much better, on 6 liters this am, but sats are 86% turned up to 8 for breakfast, lungs are better sounding than yesterday, still has exp wheeze t/o, more air movement, left side is less course, has a harsh nonproductive cough, hrr, no edema noted, piv to lfa, site is clear and patent, s.l., btx4, abd round soft nontender, voids without diff, skin c/w/d, maew, ambulates to br indep, just needs lines managed, gait noted to be steady, serena, call light in reach.
--- NOTE | 2021-10-29 18:07 | NUR ---
pt has sat up in chair all shift, she yells out at her oxymeter and any other annoyances and causes herself to desat, am able to get her to stop and relax and breath slower, but will start again when out of room. did have to give a valium this afternoon because she got so anxious we couldn't get her sats up and called Rt to place bipap. no further acute changes this shift. call light in reach.
[2021-10-30 05:54] LABS: Albumin, Blood 2.2 g/dL (3.4-5.0); Anion Gap 1 mmol/L (6-16); Blood Urea Nitrogen 50 mg/dL (8-24); Bun/Creatinine Ratio 52.4 (12.0-20.0); CO2, Blood 37 mmol/L (21-32); Calcium, Blood 9.7 mg/dL (8.5-10.1); Chloride, Blood 99 mmol/L (98-108); Creatinine, Blood 0.95 mg/dL (0.40-1.00); Glomerular Filtration Rate 59 (60-); Glucose, Blood 290 mg/dL (70-99); Phosphorus, Blood 3.3 mg/dL (2.5-4.9); Sodium, Blood 137 mmol/L (136-145)
[2021-10-30] MEDS ORDERED: AZIT250 PO (12:15)
[2021-10-30] MEDS ORDERED: BUSP5 PO (12:16)
[2021-10-30] MEDS ORDERED: CEFD300 PO (12:17)
[2021-10-30] MEDS ORDERED: GUAI600T33 PO (12:18)
[2021-10-30] MEDS ORDERED: FURO20 PO (12:18)
[2021-10-30] MEDS ORDERED: LEVSOD75 PO (12:19)
[2021-10-30] MEDS ORDERED: METF500C PO (12:21)
[2021-10-30] MEDS ORDERED: Prednisone10 MG PO (12:23)
[2021-10-30] MEDS ORDERED: ANORO ELLIPTA1 EACH INH (12:25)
[2021-10-30] MEDS ORDERED: VISBIOME 112.51 EACH PO (12:26)
--- NOTE | 2021-10-30 16:35 | NUR ---
PATIENT DISCHARGED TO HOME WITH BROTHER STEPHEN AT 1530 TO [facility] VIA WHEEL CHAIR. PATIENT SLIGHTLY CONFUSED THROUGHOUT THE DAY. IS ABLE TO CALL USINE CALL LIGHT AND MAKE HER WANTS AND NEEDS KNOWN. PER PATIENT AND HER BROTHER SHE DOES HAVE A CONCENTRATOR FROM [facility] AT HOME AND ALSO HER TRILOGY. NOTIFIED [facility] AND THEY BROUGHT A PORTABLE WITH TANK FOR HER TO GO HOME WITH. HOME O2 EVAL BY SARAH RT SHOWS PATIENT NEEDS 4 LITERS O2 VIA NASAL CANNULA WITH EXERTION. BROTHER VERBALIZED THAT J[facility] HAS AN O2 BLEED IN AT NOC THAT HE IS ABLE TO SWITCH OVER FOR PATIENT. AT DISCHARGE SKYLAR HAS PLEASANT AFFECT VERBALIZED DC INSTRUCTIONS SHE HAS AN APPOINTMENT WITH [facility] TOMORROW AT 1215. BROTHER STEPHEN NOTIFIED OF APPOINTMENT ALSO. MEDICATIONS FAXED TO [facility] PER PHARMACIST AT [facility] WHO MET WITH PATIENT AND HER BROTHER TO GO OVER NEW MEDS.
== END 2021-10-30 16:45 | disposition home or self-care (01) | DRG 871 ==
LOC: ER 15:05 → MEDS 20:39 → ENPENDDIS 10-30 10:56 → MEDS 10-30 16:45
PROVIDERS: Internal Medicine; Physician Assistant; ADMIT Internal Medicine
DX: A41.9 Sepsis, unspecified organism (principal); J96.21 Acute and chronic respiratory failure with hypoxia; J18.9 Pneumonia, unspecified organism; J96.22 Acute and chronic respiratory failure with hypercapnia; J44.1 Chronic obstructive pulmonary disease with (acute) exacerbation; J44.0 Chronic obstructive pulmonary disease with (acute) lower respiratory infection; I50.32 Chronic diastolic (congestive) heart failure; I13.0 Hypertensive heart and chronic kidney disease with heart failure and stage 1 through stage 4 chronic kidney disease, or unspecified chronic kidney disease; Z20.822 Contact with and (suspected) exposure to COVID-19; E11.22 Type 2 diabetes mellitus with diabetic chronic kidney disease; N18.30 Chronic kidney disease, stage 3 unspecified; E66.9 Obesity, unspecified; F41.9 Anxiety disorder, unspecified; E11.65 Type 2 diabetes mellitus with hyperglycemia; Z53.29 Procedure and treatment not carried out because of patient's decision for other reasons; T38.0X5A Adverse effect of glucocorticoids and synthetic analogues, initial encounter; I27.20 Pulmonary hypertension, unspecified; G47.33 Obstructive sleep apnea (adult) (pediatric); E03.9 Hypothyroidism, unspecified; Z96.653 Presence of artificial knee joint, bilateral; Z66 Do not resuscitate; E78.5 Hyperlipidemia, unspecified; Z99.81 Dependence on supplemental oxygen; Z90.89 Acquired absence of other organs; Z79.890 Hormone replacement therapy; Z79.899 Other long term (current) drug therapy; Z87.891 Personal history of nicotine dependence; Z72.89 Other problems related to lifestyle; Z68.28 Body mass index [BMI] 28.0-28.9, adult; Z88.5 Allergy status to narcotic agent
CPT/HCPCS: 0241U; 36415; 36600; 71046; 80048; 80053; 80061; 80069; 82803; 83605; 83880; 84443; 85025; 85027; 86803; 87040; 94640; 94660; 94664; 94761; 94762; 96374; 96375; 99284-25; A9270; J0456; J0696; J1650; J1940; J2930; J7050

== ENCOUNTER → 2023-01-15 | Outpatient (CLI) | payer MEDICARE, OTHER ==
[~2023-01-15] MED LIST changes: +AZIT250 PO; +BUSP5 PO; +CEFD300 PO; +GUAI600T33 PO; +METF500C PO; +Prednisone10 MG PO; +SILD25T PO; +VISBIOME 112.51 EACH PO
== END ==
LOC: LAB SHORT 12:58 → LAB 12:58
DX: E11.9 Type 2 diabetes mellitus without complications (principal); E03.8 Other specified hypothyroidism; E06.3 Autoimmune thyroiditis; E78.2 Mixed hyperlipidemia
CPT/HCPCS: 82043

== ENCOUNTER 2024-02-24 21:21 | Emergency (ER) | payer MEDICARE, OTHER ==
[~2024-02-24] VITALS: Ht 144.8 cm; Wt 88.5 kg
[~2024-02-24 21:21] MED LIST changes: +CEPH500 PO; +PRED20 PO
[2024-02-24 22:06] LABS: BASOPHILS ABSOLUTE AUTO 0.04 K/mm3 (0.00-0.23); BASOPHILS PERCENT AUTO 0 % (0-2); EOSINOPHILS ABSOLUTE AUTO 0.03 K/mm3 (0.00-0.68); EOSINOPHILS PERCENT AUTO 0 % (0-6); Hematocrit 30.9 % (33.0-51.0); IMMATURE GRAN ABSOLUTE AUTO 0.09 K/mm3 (0.00-0.10); IMMATURE GRAN PERCENT AUTO 1 % (0-1); LYMPHOCYTES ABSOLUTE AUTO 1.46 K/mm3 (0.84-5.20); LYMPHOCYTES PERCENT AUTO 11 % (21-46); MONOCYTES ABSOLUTE AUTO 1.84 K/mm3 (0.16-1.47); MONOCYTES PERCENT AUTO 14 % (4-13); Mean Corpuscular HGB 34.5 pg (26.0-34.0); Mean Corpuscular HGB Conc 32.4 g/dL (31.5-36.5); Mean Corpuscular Volume 107 fL (80-100); NEUTROPHILS ABSOLUTE AUTO 9.89 K/mm3 (1.96-9.15); NEUTROPHILS PERCENT AUTO 74 % (41-73); Platelet Count 327 K/mm3 (150-400); RDW Coefficient Variation 16.5 % (11.7-14.2); White Blood Cell Count 13.35 K/mm3 (4.00-11.30)
[2024-02-24 22:24] LABS: Albumin, Blood 2.4 g/dL (3.4-5.0); Albumin/Globulin Ratio 0.5 (0.8-1.8); Bilirubin, Total 0.6 mg/dL (0.1-1.0); Bun/Creatinine Ratio 22.4 (12.0-20.0); Calcium, Blood 9.9 mg/dL (8.5-10.1); Creatinine, Blood 1.07 mg/dL (0.40-1.00); Globulin, Blood 4.9 g/dL (2.2-4.0); Potassium, Blood 3.2 mmol/L (3.5-5.5); Total Protein, Blood 7.3 g/dL (6.4-8.2)
[2024-02-24] MEDS ORDERED: Furosemide 10 MG/ML 4ML Vial IV ONE (23:50)
[2024-02-24] MEDS ORDERED: Potassium Chloride 20 MEQ/15 ML UDC PO ONE (23:55)
[2024-02-25 01:45] VITALS: BP 131/66
== END 2024-02-25 01:48 | disposition home or self-care (01) ==
LOC: ER 21:21
PROVIDERS: Physician Assistant
DX: M79.89 Other specified soft tissue disorders (principal); E11.9 Type 2 diabetes mellitus without complications; E03.9 Hypothyroidism, unspecified; I10 Essential (primary) hypertension; I11.9 Hypertensive heart disease without heart failure; I50.9 Heart failure, unspecified; J44.9 Chronic obstructive pulmonary disease, unspecified; Z87.891 Personal history of nicotine dependence; Z79.52 Long term (current) use of systemic steroids; Z79.84 Long term (current) use of oral hypoglycemic drugs; Z79.899 Other long term (current) drug therapy; Z88.5 Allergy status to narcotic agent
CPT/HCPCS: 80053; 83880; 85025; 96374; 99284; A9270; J1940

== ENCOUNTER 2024-05-08 03:03 | Day surgery (SDC) | payer MEDICARE, OTHER ==
[2024-05-08] VITALS (7 sets, daily range): BP systolic 118–132; BP diastolic 50–90
[2024-05-08] MEDS ORDERED: NS 250 ML IV SCH (07:05)
== END 2024-05-08 17:25 | disposition home or self-care (01) ==
LOC: ATC 03:03
DX: D50.8 Other iron deficiency anemias (principal); E53.9 Vitamin B deficiency, unspecified; E11.9 Type 2 diabetes mellitus without complications; Z87.891 Personal history of nicotine dependence; Z79.899 Other long term (current) drug therapy; Z88.5 Allergy status to narcotic agent
CPT/HCPCS: 36430; 86850; 86900; 86901; 86923; J7050; P9016

== ENCOUNTER 2024-07-09 10:42 | Day surgery (SDC) | payer MEDICARE, OTHER ==
[~2024-07-09] VITALS: Ht 162.6 cm; Wt 80.9 kg
[~2024-07-09 10:42] MED LIST changes: +Lactated Ringer's 1,000 ML IV ONE
[2024-07-09] MEDS ORDERED: ANORO ELLIPTA1 EACH (11:53)
[2024-07-09] MEDS ORDERED: Brovana15 MCG/2 M (11:53)
[2024-07-09] MEDS ORDERED: FOLI1 (12:02)
[2024-07-09] MEDS ORDERED: B-12 COMPL1000 MCG/2 (12:03)
[2024-07-09] MEDS ORDERED: Calcium Carbon500 MG (12:03)
[2024-07-09] MEDS ORDERED: Vitamin D1000 UNI1 (12:03)
[2024-07-09] MEDS ORDERED: Lisinopril2.5 MG (12:04)
[2024-07-09] MEDS ORDERED: SILD25T (12:05)
[2024-07-09] MEDS ORDERED: Lactated Ringer's 1,000 ML IV ONE (12:24)
[2024-07-09] MEDS ORDERED: propofoL 50 ML IV ONE (12:30)
[2024-07-09 13:30] VITALS: BP 110/60
== END 2024-07-09 13:41 | disposition home or self-care (01) ==
LOC: ORSCSDS 10:42
DX: R19.5 Other fecal abnormalities (principal); D12.3 Benign neoplasm of transverse colon; D12.2 Benign neoplasm of ascending colon; K57.30 Diverticulosis of large intestine without perforation or abscess without bleeding; I10 Essential (primary) hypertension; J44.9 Chronic obstructive pulmonary disease, unspecified; I27.20 Pulmonary hypertension, unspecified; E78.00 Pure hypercholesterolemia, unspecified; E11.9 Type 2 diabetes mellitus without complications; G47.33 Obstructive sleep apnea (adult) (pediatric); Z99.81 Dependence on supplemental oxygen; E78.5 Hyperlipidemia, unspecified; Z79.899 Other long term (current) drug therapy; Z87.891 Personal history of nicotine dependence
CPT/HCPCS: 82947; 88305; J2704; J7120

== ENCOUNTER 2024-10-29 19:44 | Emergency (ER) | payer MEDICARE ==
[~2024-10-29] VITALS: Ht 162.6 cm; Wt 84.4 kg
[~2024-10-29 19:44] MED LIST changes: +ANORO ELLIPTA1 EACH; +B-12 COMPL1000 MCG/2; +Brovana15 MCG/2 M; +Calcium Carbon500 MG; +FOLI1; -Lactated Ringer's 1,000 ML IV ONE; +Lisinopril2.5 MG; +SILD25T; +Vitamin D1000 UNI1
[2024-10-29 20:35] LABS: BASOPHILS ABSOLUTE AUTO 0.05 K/mm3 (0.00-0.23); BASOPHILS PERCENT AUTO 1 % (0-2); EOSINOPHILS ABSOLUTE AUTO 0.08 K/mm3 (0.00-0.68); EOSINOPHILS PERCENT AUTO 1 % (0-6); Hemoglobin 9.3 g/dL (11.5-16.0); IMMATURE GRAN ABSOLUTE AUTO 0.02 K/mm3 (0.00-0.10); IMMATURE GRAN PERCENT AUTO 0 % (0-1); LYMPHOCYTES ABSOLUTE AUTO 2.34 K/mm3 (0.84-5.20); LYMPHOCYTES PERCENT AUTO 36 % (21-46); MONOCYTES ABSOLUTE AUTO 0.63 K/mm3 (0.16-1.47); MONOCYTES PERCENT AUTO 10 % (4-13); Mean Corpuscular HGB 36.5 pg (26.0-34.0); Mean Corpuscular HGB Conc 33.2 g/dL (31.5-36.5); Mean Corpuscular Volume 110 fL (80-100); Mean Platelet Volume 10.9 fL (9.1-12.4); NEUTROPHILS ABSOLUTE AUTO 3.41 K/mm3 (1.96-9.15); NEUTROPHILS PERCENT AUTO 52 % (41-73); Platelet Count 180 K/mm3 (150-400); RDW Standard Deviation 64.8 fL (35.1-46.3); Red Blood Cell Count 2.55 M/mm3 (3.80-5.20); White Blood Cell Count 6.53 K/mm3 (4.00-11.30)
[2024-10-29 20:45] LABS: Albumin, Blood 2.7 g/dL (3.4-5.0); Albumin/Globulin Ratio 1.1 (0.8-1.8); Bilirubin, Total 0.6 mg/dL (0.1-1.0); Bun/Creatinine Ratio 45.4 (12.0-20.0); Calcium, Blood 8.4 mg/dL (8.5-10.1); Creatinine, Blood 1.19 mg/dL (0.40-1.00); Globulin, Blood 2.5 g/dL (2.2-4.0); Potassium, Blood 4.5 mmol/L (3.5-5.5); Total Protein, Blood 5.2 g/dL (6.4-8.2)
[2024-10-29 23:30] VITALS: BP 105/67
[2024-10-29] MEDS ORDERED: CEPH500 PO (23:59)
== END 2024-10-29 23:59 | disposition other institution (70) ==
LOC: ER 19:44
PROVIDERS: Student in an Organized Health Care Education/Training Program
DX: S91.115A Laceration without foreign body of left lesser toe(s) without damage to nail, initial encounter (principal); R55 Syncope and collapse; Z88.5 Allergy status to narcotic agent; Z79.899 Other long term (current) drug therapy; E11.9 Type 2 diabetes mellitus without complications; I11.0 Hypertensive heart disease with heart failure; I50.9 Heart failure, unspecified; J44.9 Chronic obstructive pulmonary disease, unspecified; Z87.891 Personal history of nicotine dependence; W26.8XXA Contact with other sharp object(s), not elsewhere classified, initial encounter
CPT/HCPCS: 36415; 80053; 83880; 84484; 85025; 93005; 93010; 99283-25

== ENCOUNTER 2025-01-29 08:32 | Inpatient (IN) | payer MEDICARE ==
[~2025-01-29] VITALS: Ht 162.6 cm; Wt 79.2 kg
[~2025-01-29 08:32] MED LIST changes: +ATORVASTATIN CA20 MG PO; +EUTHYROX75 MC1 PO; +FUROSEMIDE20 MG PO; +K-Dur10 MEQ PO; +LISINOPRIL2.5 MG PO; +SILDENAFIL CITR20 M1 PO; +TRIPHROCAPS SOFT1 MG PO
[2025-01-29] MEDS ORDERED: Ipratropium/Albuterol SulF 2.5-0.5MG/3 ML Amp INH ONE (08:45)
[2025-01-29 09:17] LABS: BASOPHILS ABSOLUTE AUTO 0.05 K/mm3 (0.00-0.23); BASOPHILS PERCENT AUTO 0 % (0-2); EOSINOPHILS ABSOLUTE AUTO 0.00 K/mm3 (0.00-0.68); EOSINOPHILS PERCENT AUTO 0 % (0-6); Hematocrit 30.8 % (33.0-51.0); Hemoglobin 9.8 g/dL (11.5-16.0); IMMATURE GRAN ABSOLUTE AUTO 0.17 K/mm3 (0.00-0.10); IMMATURE GRAN PERCENT AUTO 1 % (0-1); LYMPHOCYTES ABSOLUTE AUTO 0.61 K/mm3 (0.84-5.20); LYMPHOCYTES PERCENT AUTO 3 % (21-46); MONOCYTES ABSOLUTE AUTO 1.97 K/mm3 (0.16-1.47); MONOCYTES PERCENT AUTO 8 % (4-13); Mean Corpuscular HGB Conc 31.8 g/dL (31.5-36.5); Mean Corpuscular Volume 99 fL (80-100); NEUTROPHILS ABSOLUTE AUTO 22.07 K/mm3 (1.96-9.15); NEUTROPHILS PERCENT AUTO 89 % (41-73); NRBC ABSOLUTE 0.00 K/mm3 (0.00-0.02); NRBC Auto 0.0 /100 WBC (0.0-0.2); Platelet Count 252 K/mm3 (150-400); RDW Coefficient Variation 17.2 % (11.7-14.2); RDW Standard Deviation 62.4 fL (35.1-46.3)
[2025-01-29 09:35] LABS: Alanine Aminotransfer (ALT/SGP 29.0 U/L (12-78); Albumin, Blood 2.3 g/dL (3.4-5.0); Albumin/Globulin Ratio 0.5 (0.8-1.8); Anion Gap 6.0 mmol/L (3-11); Aspartate Aminotrans (AST/SGOT 24.0 U/L (12-37); Bilirubin, Total 0.8 mg/dL (0.1-1.0); Blood Urea Nitrogen 26.0 mg/dL (8-24); CO2, Blood 41.0 mmol/L (21-32); Calcium, Blood 9.4 mg/dL (8.5-10.1); Chloride, Blood 90.0 mmol/L (98-108); Creatinine, Blood 1.14 mg/dL (0.40-1.00); Globulin, Blood 4.2 g/dL (2.2-4.0); Glucose, Blood 108.0 mg/dL (70-99); Potassium, Blood 3.7 mmol/L (3.5-5.5); Sodium, Blood 133.0 mmol/L (136-145); Total Protein, Blood 6.5 g/dL (6.4-8.2)
[2025-01-29] MEDS ORDERED: CeFAZolin Sodium 2,000 MG in NS 100 ML IV ONE (10:00)
[2025-01-29] MEDS ORDERED: Ipratropium/Albuterol SulF 2.5-0.5MG/3 ML Amp INH PRN (10:45)
[2025-01-29 12:15] VITALS: BP 96/57
[2025-01-29] MEDS ORDERED: FentaNYL Citrate 50 MCG/ML 2 ML Injection IV PRN (13:10)
[2025-01-29 14:50] VITALS: BP 106/60
[2025-01-29] MEDS ORDERED: CeFAZolin Sodium 2,000 MG in NS 100 ML IV SCH (16:00)
[2025-01-29] MEDS ORDERED: Albuterol 2.5 MG/3 ML VIAL INH PRN (16:20)
[2025-01-29] MEDS ORDERED: Potassium Chloride 10 Meq Tablet SA PO SCH (17:00)
[2025-01-29 18:08] VITALS: BP 104/66
--- NOTE | 2025-01-29 18:34 | NUR ---
SHIFT SUMMARY PT ADMITED TODAY FOR SEPSIS AND ACUTE RESP FAIL R/T COPD EXACERBATION, SHE HAS BEEN A/O THIS SHIFT THOUGH SHE HAS MADE A FEW COMMENTS THAT DON'T ALIGN WITH PROVIDED INFORMATION R/T FAMILY AND CURRENTLY LIVING SITUATION. SET UP WITH TELE AND CONT BIOX FOR OXYMITRY, NO EVENTS ON EITHER THIS SHIFT. PAIN IN R WRIST THAT IS RED/HOT/SWOLLEN MEDICATED 1X WITH FENT PER EMAR. PT GROANS WITH ANY MOVEMENT STATING SHE HAS GOUT THOUGH THIS IS NOT IN HER MEDICAL RECORD OR H&P. BED ALARM ON FOR SAFETY THOUGH SHE HAS NOT TRIED TO GET UP ON HER OWN THIS SHIFT. CALL LIGHT IN REACH.
[2025-01-29 20:03] VITALS: BP 94/55
[2025-01-29 23:48] VITALS: BP 90/54
--- NOTE | 2025-01-30 02:02 | NUR ---
INCREASED O2 NEEDS AT 0000, PT HAD BEEN DESATING ON 4L O2 TO THE MID AND UPPER 80'S, O2 HAS NEEDED TO BE INCREASED TO KEEP SATS ABOVE 90%. INCREASED O2 TO 8L AND THEN 10L. PT HAS HAD SOME SOB BUT REPORTED RELIEF AFTER BREATHING TREATMENT. HOWEVER O2 NEEDS STILL REMAIN HIGH. PT DOES NOT APPEAR IN ANY DISTRESS. RESP RATE WNL. IN ADDITION, PT DESATS WHEN SHE IS SLEEPING, SHE REPORTS A HX OF SLEEP APNEA AND REPORTS THAT SHE USES A CPAP AT HOME. TOLL RELIEF OPERATOR SARAH NOTIFIED THAT PT O2 NEEDS HAVE INCREASED, WELL THE NEED FOR A CPAP ORDER. TOLL RELIEF OPERATOR SARAH NOTIFIED PROVIDER OF INCREASED O2 NEEDS, AND RECEIVED AN ORDER FOR CPAP. RECEIVED ORDER FOR CPAP AND NO ADDITIONAL ORDERS REGARDING THE INCREASE IN O2 NEEDS. PT TOLERATING ON 10L VIA HIGH FLOW, RT AWARE OF INCREASE IN O2 NEEDS. RT NOTIFIED WELL AND AGREE WITH PLAN TO START CPAP TO SEE HOW PT RESPONDS. CPAP SETTING PER RT, WITH 15L BLEED IN. PT TOLERATING SETTINGS AND MAINTAINING SATS WNL AT THIS TIME.
[2025-01-30 04:29] VITALS: BP 98/52
[2025-01-30 04:54] LABS: Hematocrit 29.6 % (33.0-51.0); Hemoglobin 9.4 g/dL (11.5-16.0); Mean Corpuscular HGB Conc 31.8 g/dL (31.5-36.5); Mean Corpuscular Volume 98 fL (80-100); NRBC ABSOLUTE 0.00 K/mm3 (0.00-0.02); NRBC Auto 0.0 /100 WBC (0.0-0.2); Platelet Count 249 K/mm3 (150-400); RDW Coefficient Variation 17.0 % (11.7-14.2); RDW Standard Deviation 61.1 fL (35.1-46.3)
[2025-01-30 05:14] LABS: Anion Gap 7.0 mmol/L (3-11); Blood Urea Nitrogen 39.0 mg/dL (8-24); CO2, Blood 38.0 mmol/L (21-32); Calcium, Blood 9.8 mg/dL (8.5-10.1); Chloride, Blood 93.0 mmol/L (98-108); Creatinine, Blood 1.33 mg/dL (0.40-1.00); Glucose, Blood 177.0 mg/dL (70-99); Potassium, Blood 3.5 mmol/L (3.5-5.5); Sodium, Blood 134.0 mmol/L (136-145)
--- NOTE | 2025-01-30 05:25 | NUR ---
SHIFT SUMMARY PT HAS RESTED IN BED IN T/O THE SHIFT. IV ANTIBIOTICS CONTINUED FOR R ARM CELLULITIS. ARM IS RED AND SWOLLEN, AND PAINFUL WITH MINIMAL MOVEMENT. PAIN MANAGED PER EMAR. PT IS ON O2, O2 NEEDS RANGE FROM 5-10L. PT ABLE TO HOLD HER SATS SOMETIMES AT 5L, BUT THEN WITH NO CHANGE IN ACTIVITY, AND NO SIGNS OF RESP DISTRESS HER SATS DIP BELOW 90'S TO THE MID AND UPPER 80'S AND SHE IS IS REQUIERING MORE O2. PT HAD BEEN MAINTAINING ON 4L O2 PRIOR TO THIS. PT IS ON 8L O2 AT THIS TIME, AND IS MAINTAINING SATS WNL. PROVIDER MADE AWARE OF INCREASED OXYGEN NEEDS, NO NEW ORDERS GIVEN REGARDING THAT. PT REPORTS SHE WEARS CPAP NIGHTLY AT HOME. ORDER OBTAINED FOR CPAP THIS SHIFT. PT DID WEAR CPAP SOME AFTER INITAL SET UP, BUT LATER REFUSED STATING IT WAS TOO UNCOMFORTABLE. PT HAS HAD LOW URINE OUTPUT, 50 CC OUT. POST VOID SCAN REVEALED 395 IN BLADDER, TOO LOW FOR STRAIGHT CATH PER PROTOCOL. MANUFACTURE SPECIALIST MADE AWARE OF THIS. NO OTHER CHANGES TO REPORT OVERNIGHT. PT A/OX4, MAKES NEEDS KNOWN. BED IN LOWEST POSITION, CALL LIGHT WITHIN REACH.
[2025-01-30] MEDS ORDERED: Vitamin B Cmplx/Vit C/Folic Ac 1 Tab PO SCH (06:00)
[2025-01-30 08:24] VITALS: BP 94/57
[2025-01-30] MEDS ORDERED: Enoxaparin 40 MG/0.4 ML SYR SC SCH (09:00)
[2025-01-30 11:24] VITALS: BP 88/65
[2025-01-30 16:25] VITALS: BP 99/68
--- NOTE | 2025-01-30 16:49 | NUR ---
SHIFT SUMAMRY PT A/OX3 WITH SOME CONFUSION. PT ABLE TO EXPRESS NEEDS TO SATAFF WHEN STAFF IS IN ROOM. PT RARELY USED CALL LIGHT AFTER BEING INSTRUCTED TO USE CALL LIGHT FOR ASSISTANCE. PT MOSTLY SWEARING AND GETTING FRUSTRATED WITH TV REMOTE, NASAL CANULA/MASK, FOOD/WATER, BEDDING. STAFF FREQUENTLY IN PT ROOM TO ASSIST WITH LINE MANAGEMENT AND COMFORT MEASURES. PT REPORTED PAIN TO RIGHT ARM, TREATED PER EMAR. BP'S SOFT BUT STABLE. PT SATS LABILE RANGING 70-90'S WHILE ON 6-10L NC. SWITCHED TO SIMPLE O2 MASK, SATS IN THE 90'S ON 4L. PT REPORTED SOB THIS MORNING, NONE REPORTED THIS EVENING. OTHER VSS. PT ABLE TO USE BSC WITH 2 PER ASSIST DUE TO PT UNABLE TO USE FWW. CELLULITIS PREVENTING PT FROM USING FWW.
[2025-01-30 19:32] VITALS: BP 102/67
[2025-01-30 23:48] VITALS: BP 105/62
[2025-01-31 04:06] VITALS: BP 102/64
--- NOTE | 2025-01-31 04:35 | NUR ---
SENIOR PATROL AGENT SUMMARY NO ACUTE CHANGES THIS SHIFT. PT AAOX3, COOPERATIVE WITH CARE BUT CONTINUES TO YELL OUT AND CURSE TO HERSELF WHEN STAFF LEAVE THE ROOM AND WHEN YOU RETURN TO SEE IF SHE NEEDS ADDITIONAL ASSISTANCE SHE DECLINES. CELLULITIS TO R ARM IS A VERY LIGHT PINK IN COLOR WITH MINIMAL SWELLING BUT DOES HAVE A SMALL CONCENTRATED AREA OF SWELLING/REDNESS TO HER RING FINGER ON THAT HAND. PT ABLE TO MOVE ARM BUT STILL PAINFUL TO MAKE A FIST. PT HAD A LARGE INCONTINENT VOID THAT REQUIRED FULL LINEN AND GOWN CHANGE. VITALS HAVE BEEN STABLE, WCTM.
[2025-01-31 07:48] VITALS: BP 101/32
[2025-01-31 08:04] VITALS: BP 99/62
[2025-01-31 09:09] LABS: Hematocrit 27.9 % (33.0-51.0); Hemoglobin 8.9 g/dL (11.5-16.0); Mean Corpuscular HGB Conc 31.9 g/dL (31.5-36.5); Mean Corpuscular Volume 98 fL (80-100); NRBC ABSOLUTE 0.00 K/mm3 (0.00-0.02); NRBC Auto 0.0 /100 WBC (0.0-0.2); Platelet Count 300 K/mm3 (150-400); RDW Coefficient Variation 17.2 % (11.7-14.2); RDW Standard Deviation 62.3 fL (35.1-46.3)
[2025-01-31 09:30] LABS: Anion Gap 7.0 mmol/L (3-11); Blood Urea Nitrogen 56.0 mg/dL (8-24); CO2, Blood 37.0 mmol/L (21-32); Calcium, Blood 10.2 mg/dL (8.5-10.1); Chloride, Blood 96.0 mmol/L (98-108); Creatinine, Blood 1.14 mg/dL (0.40-1.00); Glucose, Blood 137.0 mg/dL (70-99); Potassium, Blood 3.6 mmol/L (3.5-5.5); Sodium, Blood 136.0 mmol/L (136-145)
[2025-01-31 11:39] VITALS: BP 105/69
[2025-01-31] MEDS ORDERED: Insulin Human Lispro 100 Units/ML 3ML Syringe SC SCH ×2 (11:45→16:30)
[2025-01-31] MEDS ORDERED: HYDROcodone 5-APAP 325 TAB PO PRN (13:40)
--- NOTE | 2025-01-31 15:08 | NUR ---
SHIFT SUMMARY PATIENT TRANSFERED FROM PCU TO MEDICAL THIS SHIFT. SKIN INTACT. A/O X4. ON 4 LITERS O2 VIA NC. EATING AND DRINKING WELL. ELEVATED BLOOD GLUCOSE, FIRST DOSE INSULIN GIVEN, TOLERATED WELL. VOICED CONCERNS WITH TAKING FENTANYL FOR PAIN, ALLERGY TO CODEINE, DR BYRNES ORDERED IBUPROFEN, REPORTS PAIN 4/10 AFTER. ICE PACK APPLIED AND RIGHT ARM ELEVATED. TALKING TO HERSELF UNKINDLY IN A DEEP GROWLY VOICE AND ANSWERING HERSELF IN A HIGH PITCH VOICE. WHEN ASKED ABOUT THIS, PATIENT DENIES DOING THIS. ABLE TO MAKE NEEDS KNOWN. CALL LIGHT IN REACH.
[2025-01-31 15:49] VITALS: BP 108/68
[2025-01-31 19:02] VITALS: BP 105/67
[2025-01-31] MEDS ORDERED: NS 250 ML IV PRN (21:55)
[2025-02-01 04:10] VITALS: BP 121/57
--- NOTE | 2025-02-01 06:28 | NUR ---
SHIFT SUMMARY: Pt is admitted for sepsis and is alert and able to make needs known. ADLs have been 1p. On first round PT requested to know when she could have her next round of pain management. She stated that she gets in about every 6 hours. After doing a chart review it was noted that only pain management that was active was IBU 400mg q6 prn. When informed of the next time that it would be able to be given. In this case about 2100 and the name of the medication she stated OK not a problem. When asked if she needed anything else she stated that was all she was wondering about. This conversation was in a normal higher tone of voice and pleasant. Right after this LN was about to exit the door. PT stated in a much lower tone of voice that was very scratchy IBU what the fuck is that shit. about 3hours after given the IBU PT reported 8/10 pain to the right hand. Spoke with Dr. Fortune who gave T.O. for APAP 650 Q4 PRN. on 4LPM of O2 to maintain spo2 greater than 88%. PT would speak to self mostly in the 3rd person and was noted having a discussion with self in the two different tones of voice a few times through the night. When LN would check on PT during these discussions PT would state that she wasn t talking and that everything was ok.
[2025-02-01 07:59] VITALS: BP 113/75
[2025-02-01 11:45] LABS: Hematocrit 30.7 % (33.0-51.0); Hemoglobin 9.6 g/dL (11.5-16.0); Mean Corpuscular HGB Conc 31.3 g/dL (31.5-36.5); Mean Corpuscular Volume 99 fL (80-100); NRBC ABSOLUTE 0.00 K/mm3 (0.00-0.02); NRBC Auto 0.0 /100 WBC (0.0-0.2); Platelet Count 343 K/mm3 (150-400); RDW Coefficient Variation 17.2 % (11.7-14.2); RDW Standard Deviation 62.8 fL (35.1-46.3)
[2025-02-01 12:07] LABS: Anion Gap 5.0 mmol/L (3-11); Blood Urea Nitrogen 74.0 mg/dL (8-24); CO2, Blood 37.0 mmol/L (21-32); Calcium, Blood 10.0 mg/dL (8.5-10.1); Chloride, Blood 97.0 mmol/L (98-108); Creatinine, Blood 1.36 mg/dL (0.40-1.00); Glucose, Blood 141.0 mg/dL (70-99); Potassium, Blood 3.8 mmol/L (3.5-5.5); Sodium, Blood 135.0 mmol/L (136-145)
[2025-02-01] MEDS ORDERED: DELTASONE20 MG PO (15:13)
[2025-02-01] MEDS ORDERED: CEPH500 PO (15:18)
[2025-02-01] MEDS ORDERED: B-COMPLEX WITH1 EAC2 PO (15:18)
[2025-02-01] MEDS ORDERED: OMEP20ER PO (15:19)
--- NOTE | 2025-02-01 16:58 | NUR ---
PT DISCHAGRED HOME WITH SERVICES. DISCHARGE PACKET REVIEWED WITH PT AND HER BROTHER BY NETO RUIZ AND IV ALSO REMOVED BY NETO RUIZ. SITE APPEARED WNL AT TIME OF DISCHARGE. PT ABLE TO STAND AND AMBULATE WITH FWW TO AND WHEELED DOWN BY CRIB CLERK. NEW RX FAXED TO [facility].
== END 2025-02-01 16:25 | disposition home health service (06) | DRG 871 ==
LOC: ER 08:32 → MEDS 10:55 → PCU 10:55 → MEDS 01-31 12:13
PROVIDERS: Emergency Medicine; ADMIT Internal Medicine
PROC: 3E03329 Introduction of Other Anti-infective into Peripheral Vein, Percutaneous Approach (ICD-10-PCS; principal; 2025-01-29)
PROC: 5A09357 Assistance with Respiratory Ventilation, Less than 24 Consecutive Hours, Continuous Positive Airway Pressure (ICD-10-PCS; 2025-01-29)
DX: A41.9 Sepsis, unspecified organism (principal); J96.21 Acute and chronic respiratory failure with hypoxia; J96.22 Acute and chronic respiratory failure with hypercapnia; J44.1 Chronic obstructive pulmonary disease with (acute) exacerbation; E87.1 Hypo-osmolality and hyponatremia; L03.113 Cellulitis of right upper limb; I50.32 Chronic diastolic (congestive) heart failure; E11.9 Type 2 diabetes mellitus without complications; I27.20 Pulmonary hypertension, unspecified; I11.0 Hypertensive heart disease with heart failure; E78.5 Hyperlipidemia, unspecified; E03.9 Hypothyroidism, unspecified; Z96.653 Presence of artificial knee joint, bilateral; Z79.890 Hormone replacement therapy; Z87.891 Personal history of nicotine dependence; Z88.5 Allergy status to narcotic agent
CPT/HCPCS: 36415; 71045; 73130; 80048; 80053; 82947; 83605; 83880; 84484; 84550; 85025; 85027; 86140; 87040; 93005; 93010; 93971; 94640; 94660; 94664; 94762; 97110; 97116; 97161; 97530; 99285-25; A9270; J0690; J1650; J2919; J3010; J7050; J7512

== ENCOUNTER → 2025-03-02 | Outpatient (CLI) | payer MEDICARE ==
[~2025-03-02] MED LIST changes: +B COMPLEX FORM0.4 MG PO; +B-12500 MC2 PO; +B-COMPLEX WITH1 EAC2 PO; +CALCIUM CARBON500 M1 PO; +DELTASONE20 MG PO; +FOLIC ACID0.4 MG PO; +OMEP20ER PO; +VITAMIN D350 MC3 PO
[2025-03-02 14:39] LABS: Alanine Aminotransfer (ALT/SGP 16.0 U/L (12-78); Albumin, Blood 3.1 g/dL (3.4-5.0); Albumin/Globulin Ratio 0.8 (0.8-1.8); Anion Gap 6.0 mmol/L (3-11); Aspartate Aminotrans (AST/SGOT 18.0 U/L (12-37); Bilirubin, Total 0.7 mg/dL (0.1-1.0); Blood Urea Nitrogen 24.0 mg/dL (8-24); CO2, Blood 36.0 mmol/L (21-32); Calcium, Blood 9.7 mg/dL (8.5-10.1); Chloride, Blood 104.0 mmol/L (98-108); Creatinine, Blood 0.91 mg/dL (0.40-1.00); Globulin, Blood 3.9 g/dL (2.2-4.0); Glucose, Blood 103.0 mg/dL (70-99); Potassium, Blood 4.5 mmol/L (3.5-5.5); Sodium, Blood 141.0 mmol/L (136-145); Total Protein, Blood 7.0 g/dL (6.4-8.2)
== END ==
LOC: LAB 12:19 → LAB SHORT 12:19
PROVIDERS: Nurse Practitioner Family
DX: R94.4 Abnormal results of kidney function studies (principal)
CPT/HCPCS: 80053

== ENCOUNTER 2025-03-18 10:53 | Day surgery (SDC) | payer MEDICARE ==
[~2025-03-18] VITALS: Ht 162.6 cm; Wt 97.1 kg
[~2025-03-18 10:53] MED LIST changes: +Balanced Salt Epinephrine Irrigation Solution 500 mL IR SCH; +Moxifloxacin HCL 0.5 MG/0.1 ML 0.4MLSYR LEFTEYE SCH; +NS 500 ML IV ONE; +PHENYLEPHRINE\\TROPICAMIDE\\TETRACAINE OPHTHALMIC DILATING SOLN LEFTEYE PRN; +Povidone-Iodine 450 DROP/30 ML Solution LEFTEYE SCH; +Povidone-Iodine 450 DROP/30 ML Solution ONE; +Tetracaine HCl/Pf 0.5% Opth Soln 4 ml ONE; +Triamcinolone Inj Susp 40 MG / ML 1ML Vial INJ SCH; +Triamcinolone Inj Susp 40 MG / ML 1ML Vial ONE
[2025-03-18] MEDS ORDERED: POTASSIUM CL ER 10 M (11:44)
--- NOTE | 2025-03-18 12:03 | NUR ---
03/18/25 1203 Priscilla Benítez PT WAS PLACED ON OXYGEN AT 4LPM WHICH IS HER BASELINE AND THEN WAS LAID DOWN. OXYGEN SATURATION WENT DOWN TO THE 70s SO OXYGEN WAS INCREASED TO 7LPM AND HEAD OF BED WAS RAISED. OXYGEN SATURATION CAME UP TO MID 90s. DR. HALEY NOTIFIED. DR ROSENTHAL WILL BE NOTIFIED WHEN HE'S AVAILABLE TO ASSESS PT.
[2025-03-18] MEDS ORDERED: NS 500 ML IV ONE (12:14)
[2025-03-18] MEDS ORDERED: Midazolam HCl 1MG / ML 2ML Vial ONE (12:36)
--- NOTE | 2025-03-18 13:05 | NUR ---
03/18/25 6589 NARAYAN SALOMON PT CURRENTLY ON 6L VIA N/C. PT BROUGHT O2 TANK WITH HER AND IS IN HER WALKER
[2025-03-18 13:13] VITALS: BP 137/71
== END 2025-03-18 13:32 | disposition home or self-care (01) ==
LOC: ORSCSDS 10:53
PROVIDERS: Ophthalmology
PROC: 08RK3JZ Replacement of Left Lens with Synthetic Substitute, Percutaneous Approach (ICD-10-PCS; principal; 2025-03-18 12:30)
DX: E11.36 Type 2 diabetes mellitus with diabetic cataract (principal); H25.812 Combined forms of age-related cataract, left eye; Z96.1 Presence of intraocular lens; H35.3133 Nonexudative age-related macular degeneration, bilateral, advanced atrophic without subfoveal involvement; J44.9 Chronic obstructive pulmonary disease, unspecified; E78.5 Hyperlipidemia, unspecified; Z99.81 Dependence on supplemental oxygen; E03.9 Hypothyroidism, unspecified; Z87.891 Personal history of nicotine dependence; Z79.899 Other long term (current) drug therapy
CPT/HCPCS: 82947; J2250; J3301; J7040; V2632

== ENCOUNTER 2025-04-12 13:25 | Inpatient (IN) | payer MEDICARE ==
[~2025-04-12] VITALS: Ht 152.4 cm; Wt 80.2 kg
[2025-04-12] VITALS (21 sets, daily range): BP systolic 91–151; BP diastolic 54–103
[~2025-04-12 13:25] MED LIST changes: -Balanced Salt Epinephrine Irrigation Solution 500 mL IR SCH; -Moxifloxacin HCL 0.5 MG/0.1 ML 0.4MLSYR LEFTEYE SCH; -NS 500 ML IV ONE; -PHENYLEPHRINE\\TROPICAMIDE\\TETRACAINE OPHTHALMIC DILATING SOLN LEFTEYE PRN; +POTASSIUM CL ER 10 M; -Povidone-Iodine 450 DROP/30 ML Solution LEFTEYE SCH; -Povidone-Iodine 450 DROP/30 ML Solution ONE; -Tetracaine HCl/Pf 0.5% Opth Soln 4 ml ONE; -Triamcinolone Inj Susp 40 MG / ML 1ML Vial INJ SCH; -Triamcinolone Inj Susp 40 MG / ML 1ML Vial ONE
[2025-04-12] MEDS ORDERED: Ipratropium/Albuterol SulF 2.5-0.5MG/3 ML Amp INH PRN (13:40)
[2025-04-12 14:07] LABS: BASOPHILS ABSOLUTE AUTO 0.03 K/mm3 (0.00-0.23); BASOPHILS PERCENT AUTO 1 % (0-2); EOSINOPHILS ABSOLUTE AUTO 0.09 K/mm3 (0.00-0.68); EOSINOPHILS PERCENT AUTO 2 % (0-6); Hematocrit 37.7 % (33.0-51.0); Hemoglobin 11.1 g/dL (11.5-16.0); IMMATURE GRAN ABSOLUTE AUTO 0.03 K/mm3 (0.00-0.10); IMMATURE GRAN PERCENT AUTO 1 % (0-1); LYMPHOCYTES ABSOLUTE AUTO 1.21 K/mm3 (0.84-5.20); LYMPHOCYTES PERCENT AUTO 22 % (21-46); MONOCYTES ABSOLUTE AUTO 0.50 K/mm3 (0.16-1.47); MONOCYTES PERCENT AUTO 9 % (4-13); Mean Corpuscular HGB Conc 29.4 g/dL (31.5-36.5); Mean Corpuscular Volume 113 fL (80-100); NEUTROPHILS ABSOLUTE AUTO 3.65 K/mm3 (1.96-9.15); NEUTROPHILS PERCENT AUTO 66 % (41-73); NRBC ABSOLUTE 0.00 K/mm3 (0.00-0.02); NRBC Auto 0.0 /100 WBC (0.0-0.2); Platelet Count 179 K/mm3 (150-400); RDW Coefficient Variation 15.7 % (11.7-14.2); RDW Standard Deviation 65.4 fL (35.1-46.3)
[2025-04-12 14:13] LABS: pH Blood Venous 7.21 (7.34-7.37)
[2025-04-12] MEDS ORDERED: Mag Sulfate 1 GM/D5% 100ML 100 ML IV ONE (14:20)
[2025-04-12 14:24] LABS: Alanine Aminotransfer (ALT/SGP 13.0 U/L (12-78); Albumin, Blood 3.2 g/dL (3.4-5.0); Albumin/Globulin Ratio 0.8 (0.8-1.8); Anion Gap 4.0 mmol/L (3-11); Aspartate Aminotrans (AST/SGOT 15.0 U/L (12-37); Bilirubin, Total 0.5 mg/dL (0.1-1.0); Blood Urea Nitrogen 21.0 mg/dL (8-24); CO2, Blood 40.0 mmol/L (21-32); Calcium, Blood 9.8 mg/dL (8.5-10.1); Chloride, Blood 100.0 mmol/L (98-108); Creatinine, Blood 0.98 mg/dL (0.40-1.00); Globulin, Blood 3.9 g/dL (2.2-4.0); Glucose, Blood 87.0 mg/dL (70-99); Potassium, Blood 4.8 mmol/L (3.5-5.5); Sodium, Blood 139.0 mmol/L (136-145); Total Protein, Blood 7.1 g/dL (6.4-8.2)
[2025-04-12] MEDS ORDERED: Doxycycline Hyclate 100 MG in Dextrose 5% 250 ML IV ONE (14:50)
[2025-04-12 15:01] LABS: Thyroid Stimulating Hormone 1.63 uIU/mL (0.360-4.800)
[2025-04-12] MEDS ORDERED: CefTRIAXone Sodium 1,000 MG in NS 100 ML IV ONE (15:35)
[2025-04-12] MEDS ORDERED: KLOR-CON 1010 ME9 PO (16:23)
[2025-04-12] MEDS ORDERED: CALCIUM 600 MG PO (16:24)
[2025-04-12] MEDS ORDERED: Albuterol 2.5 MG/3 ML VIAL INH PRN (17:05)
[2025-04-12] MEDS ORDERED: Ipratropium/Albuterol SulF 2.5-0.5MG/3 ML Amp INH SCH (17:05)
[2025-04-12] MEDS ORDERED: Ondansetron HCl 2 MG / ML 2ML Vial IV PRN (17:10)
[2025-04-12] MEDS ORDERED: NS 1,000 ML IV SCH (17:10)
[2025-04-12] MEDS ORDERED: FLU VACC TS2025(65UP)/MF59C/PF 45 MCG/0.5 ML SYRINGE IM SCH (17:15)
--- NOTE | 2025-04-12 19:27 | NUR ---
ADMISSION PT ARRIVED IN BIPAP FROM ED, NOT IN ACUTE DISTRESS, VITAL SIGNS STABLE UPON SLIDE TO BED. PT ORIENTED TO SELF ONLY, UNABLE TO FOLLOW DIRECTIONS. MOVES ALL EXTREMITIES SPONTANEOUSLY, HAS NOTED TWITCHING IN UPPER AND LOWER EXTREMETIES. PT DENIES PAIN, BUT YELLS "OW" WHEN REPOSITIONED OR TOUCHED AT ALL. SATURATING >90% ON BIPAP 16/6/40%. LUNG SOUNDS DIM T/O MULLIGAN. NSR ON MONITOR W/ OCCASIONAL PAC'S, NO NOTED EDEMA, CAP REFILL<3 SEC. ABD SOFT AND NONTENDER, BOWEL TONES ACTIVE. INCONTINENT OF BLADDER, BRIEF APPLIED UPON ARRIVAL. SKIN INTACT W/O BREAKDOWN, SECOND RN CHECK W/ GABRIELLA Fitzpatrick RN. VENOUS STASIS STAINING ON LOWER CALVES. ACCESS: RFA AND LAC PIV
[2025-04-12 19:54] LABS: pH Blood Arterial 7.32 (7.35-7.45)
--- NOTE | 2025-04-12 23:02 | NUR ---
ASSUMPTION OF CARE ASSUMED CARE OF PT APPROX 1900. HR IS SINUS DEB IN THE MID 50S ON MONITOR, BP STABLE WITH MAP >65. PT ON BIPAP 18/8 40%FIO2 AND SP02 >92%. LUNG SOUNDS ARE DIM AND TIGHT T/O MULLIGAN. PT IS RESTING IN NO APPARENT DISTRESS BUT BECOMES CONFUSED AND AGITATED UPON AROUSAL, INCONTINENT OF URINE, CLEAN BRIEF PLACED UPON ARRIVAL TO THE UNIT. CALL LIGHT WITHIN REACH.
[2025-04-13] VITALS (17 sets, daily range): BP systolic 93–155; BP diastolic 58–126
[2025-04-13 04:33] LABS: Hematocrit 35.2 % (33.0-51.0); Hemoglobin 10.4 g/dL (11.5-16.0); Mean Corpuscular HGB Conc 29.5 g/dL (31.5-36.5); Mean Corpuscular Volume 111 fL (80-100); NRBC ABSOLUTE 0.00 K/mm3 (0.00-0.02); NRBC Auto 0.0 /100 WBC (0.0-0.2); Platelet Count 176 K/mm3 (150-400); RDW Coefficient Variation 15.4 % (11.7-14.2); RDW Standard Deviation 63.3 fL (35.1-46.3)
[2025-04-13 04:35] LABS: pH Blood Arterial 7.36 (7.35-7.45)
[2025-04-13 05:02] LABS: Alanine Aminotransfer (ALT/SGP 12.0 U/L (12-78); Albumin, Blood 3.0 g/dL (3.4-5.0); Albumin/Globulin Ratio 0.8 (0.8-1.8); Anion Gap 9.0 mmol/L (3-11); Aspartate Aminotrans (AST/SGOT 9.0 U/L (12-37); Bilirubin, Total 0.3 mg/dL (0.1-1.0); Blood Urea Nitrogen 23.0 mg/dL (8-24); CO2, Blood 34.0 mmol/L (21-32); Calcium, Blood 9.3 mg/dL (8.5-10.1); Chloride, Blood 101.0 mmol/L (98-108); Creatinine, Blood 0.94 mg/dL (0.40-1.00); Globulin, Blood 3.7 g/dL (2.2-4.0); Glucose, Blood 165.0 mg/dL (70-99); Potassium, Blood 4.8 mmol/L (3.5-5.5); Sodium, Blood 139.0 mmol/L (136-145); Total Protein, Blood 6.7 g/dL (6.4-8.2)
--- NOTE | 2025-04-13 06:08 | NUR ---
SHIFT SUMMARY PT CURRENTLY ALERT AND ORIENTED TO SELF, PLACE AND EVENT. BECAME NOTABLY MORE ALERT APPROX 0030. PT UNABLE TO TOLERATE BIPAP DURING SHIFT, BECOMING AGITATED AND PULLING AT MASK AND WIRES. ATTEMPTED SWITCH TO 5L NC RESULTING IN SP02 IN THE 70S, BIPAP WAS RESTARTED AND DR STORM CONTACTED. PT WAS CHANGED TO AIRVO APPROX 0130 WITH IMPROVED COMPLIANCE AND DECREASED AGITATION, SPO2 >92%. HR IS SINUS IN THE 60S-70S WHILE AWAKE AND DIPPING INTO THE HIGH 50S DURING SLEEP. BP STABLE WITH MAP >65. NO UNMET NEEDS EXPRESSED AT THIS TIME, CALL LIGHT WITHIN REACH.
[2025-04-13] MEDS ORDERED: Enoxaparin 40 MG/0.4 ML SYR SC SCH (09:00)
--- NOTE | 2025-04-13 09:30 | NUR ---
AM NOTE... ASSUMED CARE OF PT AT 0700, PT IS A&Ox3. PT HANDS/ARMS ARE TREMULOUS. SHE IS ON AIRVO AT 45L AND 50% WITH O2 SATS>90% L/S ARE DIM AND TIGHT. PT BECOMES SOB WITH MOVEMENT/TURNS IN THE BED. SHE IS IN SR W/PACs IN THE 50'S-60'S. BT PRESENT AND NORMOACTIVE, ABD IS SOFT AND NONTENDER TO PALPATION. PURWICK IS IN PLACE TO LIS. PER PT LAST BM WAS ON 04/12/25.
[2025-04-13] MEDS ORDERED: Rena-Vite Tabl0.8 MG PO (11:23)
[2025-04-13] MEDS ORDERED: Insulin Human Lispro 100 Units/ML 3ML Syringe SC SCH (11:30)
[2025-04-13] MEDS ORDERED: CefTRIAXone Sodium 1,000 MG in NS 100 ML IV SCH (12:00)
[2025-04-13 18:06] LABS: pH Blood Venous 7.43 (7.34-7.37)
--- NOTE | 2025-04-13 18:30 | NUR ---
SHIFT SUMMARY: PT A&OX3, INCREASINGLY MORE CONFUSED T/O SHIFT. PT ON AIRVO AT 40/50, O2 >92%. LUNG SOUNDS TIGHT AND DIMINISHED T/O. OCCASIONAL PRODUCTIVE COUGH. PT DENIES SOB AND CHEST PAIN. HR IN 60-70S, MAP >65. SINUS RHYTHM WITH MULTIPLE PACS. TWO PIVS, BOTH FLUSH AND NO S/SX OF IRRITATION. PT BEGAN PULLING AT HIS LAC AT 1740, GETS CONFUSED BUT CAN BE REORIENTED. PUREWICK WAS REMOVED AND PATIENT IS ABLE TO TRANSFER TO BS WITH ASSIST.
[2025-04-13] MEDS ORDERED: OMEP20ER PO (19:32)
[2025-04-13] MEDS ORDERED: Lactobacil 2-S.Thermo-Bifido 1 1 Cap PO SCH (21:00)
[2025-04-14] VITALS (17 sets, daily range): BP systolic 85–116; BP diastolic 53–82
[2025-04-14 05:57] LABS: BASOPHILS ABSOLUTE AUTO 0.00 K/mm3 (0.00-0.23); BASOPHILS PERCENT AUTO 0 % (0-2); EOSINOPHILS ABSOLUTE AUTO 0.00 K/mm3 (0.00-0.68); EOSINOPHILS PERCENT AUTO 0 % (0-6); Hematocrit 34.4 % (33.0-51.0); Hemoglobin 10.2 g/dL (11.5-16.0); IMMATURE GRAN ABSOLUTE AUTO 0.03 K/mm3 (0.00-0.10); IMMATURE GRAN PERCENT AUTO 0 % (0-1); LYMPHOCYTES ABSOLUTE AUTO 0.36 K/mm3 (0.84-5.20); LYMPHOCYTES PERCENT AUTO 4 % (21-46); MONOCYTES ABSOLUTE AUTO 0.21 K/mm3 (0.16-1.47); MONOCYTES PERCENT AUTO 3 % (4-13); Mean Corpuscular HGB Conc 29.7 g/dL (31.5-36.5); Mean Corpuscular Volume 112 fL (80-100); NEUTROPHILS ABSOLUTE AUTO 7.71 K/mm3 (1.96-9.15); NEUTROPHILS PERCENT AUTO 93 % (41-73); NRBC ABSOLUTE 0.00 K/mm3 (0.00-0.02); NRBC Auto 0.0 /100 WBC (0.0-0.2); Platelet Count 190 K/mm3 (150-400); RDW Coefficient Variation 15.4 % (11.7-14.2); RDW Standard Deviation 63.5 fL (35.1-46.3)
[2025-04-14 06:14] LABS: Anion Gap 5.0 mmol/L (3-11); Blood Urea Nitrogen 37.0 mg/dL (8-24); CO2, Blood 31.0 mmol/L (21-32); Calcium, Blood 9.4 mg/dL (8.5-10.1); Chloride, Blood 104.0 mmol/L (98-108); Creatinine, Blood 1.03 mg/dL (0.40-1.00); Glucose, Blood 171.0 mg/dL (70-99); Potassium, Blood 4.6 mmol/L (3.5-5.5); Sodium, Blood 135.0 mmol/L (136-145)
--- NOTE | 2025-04-14 06:16 | NUR ---
SHIFT SUMMARY: NO SIGNIFICANT OVERNIGHT CHANGES. PT SEEMS TO HAVE INCREASED CONFUSION AND AGITATION IN THE EVENING AND THE NIGHT PROGRESSES, PARTICULARLY WHEN SHE WAKES UP. SEROQUEL AND MELATONIN SEEMED TO HELP THE PATIENT REST AND SHE DID NOT PULL AT LINES AND OXYGEN MUCH. PT STANDS AND TRANSFERS WELL WITH LIMITED AMOUNT OF ASSISTANCE. SEEMS TO MOSTLY REQUIRE REMINDERS TO LEAVE HER OXYGEN ON AND NOT PULL AT IV LINES. SHE HAD A FEW PERIODS OF BRADYCARDIA IN THE 30S-40S OTHERWISE RATE IS 50S-70S SINUS ARRHYTHMIA WITH PACS. BP REMAINS STABLE.
--- NOTE | 2025-04-14 11:05 | NUR ---
TRILOGY USE: PATIENT AND HER BROTHER REPORTED THAT HER TRILOGY WAS BROKEN AND THAT THEY WERE WAITING FOR [facility] TO DELIVER IT. RT DULCE MARIA SPOKE WITH [facility]. PER THE RECORDS OF USE, THE PATIENT HAS USED HER TRILOGY 4 TIMES IN THE LAST 90 DAYS AND THEREFORE NO LONGER QUALIFIES FOR TRILOGY.
--- NOTE | 2025-04-14 15:01 | NUR ---
HYPOTENSION: SBP IS FROM 85-88 MMHG. MAPS ARE 64-65. PATIENT REPORTS THAT SOMETIMES AT HOME HER BLOOD PRESSURES ARE LOW. NOTIFIED DR. LOPEZ. NEW ORDERS IMPLEMENTED OF HOLD AFTERNOON SILDENAFIL AND STARTING FLUIDS.
[2025-04-14] MEDS ORDERED: NS 1,000 ML IV SCH (15:05)
--- NOTE | 2025-04-14 17:55 | NUR ---
SHIFT SUMMARY: NEURO: PATIENT ALERT AND ORIENTED X 3 TODAY (ORIENTED TO PLACE, YEAR, AND SELF). SHE REQUIRED REMINDERS ABOUT WHY SHE WAS HERE AND PLAN OF CARE. PATIENT HAS AN UNDERLYING CONDITION THAT IMPEDES THE COORDINATION OF HER HANDS. PATIENT WORKED WITH PT/OT. PATIENT UP TO THE CHAIR AND BSC WITH WALKER AND MIN ASSIST. RESPIRATORY: PATIENT TITRATED OFF OF OXYGEN THROUGHOUT THE SHIFT. BY THE END OF THE SHIFT, PATIENT WAS ON 6L O2 VIA NC. DURING HER AFTERNOON NAP, PATIENT WAS AGREEABLE TO AND TOLERATED THE V30 BIPAP. PATIENT REPORTED THAT THE MASK WAS "VERY COMFORTABLE". PATIENT REPORTS THAT SHE WILL WEAR HER TRILOGY AT HOME IF SHE IS ABLE TO QUALIFY AGAIN. SPO2 >92% CARDIAC: PATIENT CONTINUES TO BE DEB WITH SLEEP WITH HR IN THE 50S-60S. PATIENT EXPERIENCED DECREASED BLOOD PRESSURES THIS AFTERNOON. SEE NURSE'S NOTE. BLOOD PRESSURES REMAINED STABLE, BUT PATIENT CONTINUED TO HAVE SBP READINGS IN THE 90S - 110S. IV FLUIDS INITIATED PER ORDERS. PATIENT ASYMPTOMATIC OF HYPOTENSION. GI/: PATIENT TOLERATING PO INTAKE. SWITCHED TEXTURE TO FINGER FOOD PER PATIENT REQUEST. PATIENT VOIDING WITHOUT DIFFICULTY AND ABLE TO NOTIFY RN WHEN SHE NEEDS TO VOID. PSYCHSOCIAL: PATIENT CALM AND COOPERATIVE IN THE ROOM. PATIENT WILL TALK TO HERSELF WHEN NO ONE IS IN THE ROOM. PATIENT'S BROTHER AT BEDSIDE AND CALLED DURING THE DAY TO CHECK ON THE PATIENT. HE ALSO CALLED REQUESTING THE PHONE NUMBER FOR CARE MANAGEMENT. THE PATIENT REPORTED THAT SHE AND HER BROTHER HAVE A GOOD RELATIONSHIP.
[2025-04-15] VITALS (11 sets, daily range): BP systolic 85–119; BP diastolic 52–73
--- NOTE | 2025-04-15 01:08 | NUR ---
ASSUMPTION OF CARE ASSUMED CARE OF PT APPROX 1900. PT IS ALERT, SPO2 >92% ON 5L NC. HR IS SINUS ARRYTHMIA IN THE 70S-80S, STABLE BP WITH MAP >65. NO UNMET NEEDS EXPRESSED AT THIS TIME, CALL LIGHT WITHIN REACH.
--- NOTE | 2025-04-15 01:12 | NUR ---
BIPAP REMOVED PT AWAKE AND BECOMING AGITATED WITH BIPAP, DECLINES FURTHER USE. PLACED ON 5L NC AND POSITIONED WITH HOB ELEVATED, SP02 95% AT THIS TIME AND CALL LIGHT WITHIN REACH.
--- NOTE | 2025-04-15 01:52 | NUR ---
BIPAP RESUMED PT AGREEABLE TO WEARING BIPAP DURING SLEEP AGAIN AT THIS TIME. CALL LIGHT WITHIN REACH.
--- NOTE | 2025-04-15 06:22 | NUR ---
SHIFT SUMMARY PT HR REMAINS 60S-70S SINUS ARRHYTHMIA WITH OCCASSIONAL PACS, BP STABLE WITH MAP >65, AWAKE AND SP02 REMAINS >90% ON 5L NC. DID WELL WITH BIPAP COMPLIANCE OVERNIGHT, REMOVED ONCE THEN REAPPLIED, SEE NURSES NOTE. ALERT AND ORIENTED, ANSWERING QUESTIONS APPROPRIATELY. DENIES UNMET NEEDS AT THIS TIME, CALL LIGHT WITHIN REACH.
[2025-04-15 07:27] LABS: BASOPHILS ABSOLUTE AUTO 0.00 K/mm3 (0.00-0.23); BASOPHILS PERCENT AUTO 0 % (0-2); EOSINOPHILS ABSOLUTE AUTO 0.00 K/mm3 (0.00-0.68); EOSINOPHILS PERCENT AUTO 0 % (0-6); Hematocrit 35.7 % (33.0-51.0); Hemoglobin 10.8 g/dL (11.5-16.0); IMMATURE GRAN ABSOLUTE AUTO 0.03 K/mm3 (0.00-0.10); IMMATURE GRAN PERCENT AUTO 0 % (0-1); LYMPHOCYTES ABSOLUTE AUTO 0.30 K/mm3 (0.84-5.20); LYMPHOCYTES PERCENT AUTO 3 % (21-46); MONOCYTES ABSOLUTE AUTO 0.27 K/mm3 (0.16-1.47); MONOCYTES PERCENT AUTO 3 % (4-13); Mean Corpuscular HGB Conc 30.3 g/dL (31.5-36.5); Mean Corpuscular Volume 109 fL (80-100); NEUTROPHILS ABSOLUTE AUTO 8.39 K/mm3 (1.96-9.15); NEUTROPHILS PERCENT AUTO 93 % (41-73); NRBC ABSOLUTE 0.00 K/mm3 (0.00-0.02); NRBC Auto 0.0 /100 WBC (0.0-0.2); Platelet Count 217 K/mm3 (150-400); RDW Coefficient Variation 15.7 % (11.7-14.2); RDW Standard Deviation 63.8 fL (35.1-46.3)
[2025-04-15 07:45] LABS: Anion Gap 4.0 mmol/L (3-11); Blood Urea Nitrogen 46.0 mg/dL (8-24); CO2, Blood 34.0 mmol/L (21-32); Calcium, Blood 9.3 mg/dL (8.5-10.1); Chloride, Blood 105.0 mmol/L (98-108); Creatinine, Blood 1.08 mg/dL (0.40-1.00); Glucose, Blood 156.0 mg/dL (70-99); Potassium, Blood 4.4 mmol/L (3.5-5.5); Sodium, Blood 139.0 mmol/L (136-145)
--- NOTE | 2025-04-15 10:13 | NUR ---
TRANSFER NOTE PATIENT TRANSFERRED FROM ICU VIA AT APPROX 0950. PATIENT ALERT AND ORIENTED X4. COMMUNICATING NEEDS EFFECTIVELY. ABLE TO STAND AND TRANSFER FROM TO BED W/ SBA. VSS. TELEMETRY SHOWING SINUS 60s. BP STABLE. DENIES CHEST PAIN, PRESSURE. ON 5L VIA NC, BASELINE 3L VIA NC. SATs >88%. MILD SOB W/ ACTIVITY. CURRENTLY WORKING W/ PHYSICAL THERAPY. CALL LIGHT IN REACH.
--- NOTE | 2025-04-15 16:23 | NUR ---
SHIFT SUMMARY NO ACUTE CHANGES SINCE TRANSFER TO UNIT. PATIENT REMAINS ALERT AND ORIENTED X4. COMMUNICATES NEEDS EFFECTIVELY. VSS. TELEMETRY SHOWING SINUS 60s-70s. BP SOFT - SBP 90s-100s. MAP >65. SCHEDULED HTN MEDICATION HELD PER ORDERED PARAMETER. ASYMPTOMATIC. REMAINS ON 5L VIA NC - SATs >88%. PHYSICAL AND OCCUPATIONAL THERAPY EVAL COMPLETED TODAY - AMBULATING W/ SBA FWW TO RESTROOM. UP IN CHAIR T/O DAY. BEDBATH COMPLETED. TOLERATING PO INTAKE. VOIDING. CALL LIGHT IN REACH.
[2025-04-16 03:10] VITALS: BP 124/78
--- NOTE | 2025-04-16 04:32 | NUR ---
SHIFT SUMMARY. SHIFT HAS BEEN UNREMARKABLE. PT AOX4, PLEASANT, COOPERATIVE, ABLE TO MAKE NEEDS KNOWN. HAS BEEN ABLE TO REST COMFORTABLY THROUGHOUT MOST OF SHIFT. HAS DENIED PAIN THROUGHOUT SHIFT. HAS BEEN ABLE TO TOLERATE CPAP SPORADICALLY BUT ONLY FOR SHORT PERIODS OF TIME BEFORE REQUESTING IT BE TAKEN OFF. WAS ABLE TO WEAR FOR A FEW HOURS THIS MORNING WHILE SLEEPING. PT STATES THAT SHE NEEDS SOME TIME TO BUILD UP TO WEARING IT ALL NIGHT. VITALS HAVE BEEN STABLE. BP SOFT AT TIMES BUT STABLE. HAS BEEN RUNNING SINUS THROUGHOUT SHIFT WITH RATE SETTLING IN THE 60s-70s RANGE OVERNIGHT. BED LOCKED IN LOWEST POSITION. CALL LIGHT LEFT WITHIN REACH. CONTINUING TO MONITOR.
[2025-04-16 04:33] LABS: BASOPHILS ABSOLUTE AUTO 0.00 K/mm3 (0.00-0.23); BASOPHILS PERCENT AUTO 0 % (0-2); EOSINOPHILS ABSOLUTE AUTO 0.00 K/mm3 (0.00-0.68); EOSINOPHILS PERCENT AUTO 0 % (0-6); Hematocrit 34.0 % (33.0-51.0); Hemoglobin 10.2 g/dL (11.5-16.0); IMMATURE GRAN ABSOLUTE AUTO 0.03 K/mm3 (0.00-0.10); IMMATURE GRAN PERCENT AUTO 0 % (0-1); LYMPHOCYTES ABSOLUTE AUTO 0.15 K/mm3 (0.84-5.20); LYMPHOCYTES PERCENT AUTO 2 % (21-46); MONOCYTES ABSOLUTE AUTO 0.28 K/mm3 (0.16-1.47); MONOCYTES PERCENT AUTO 4 % (4-13); Mean Corpuscular HGB Conc 30.0 g/dL (31.5-36.5); Mean Corpuscular Volume 110 fL (80-100); NEUTROPHILS ABSOLUTE AUTO 6.83 K/mm3 (1.96-9.15); NEUTROPHILS PERCENT AUTO 94 % (41-73); NRBC ABSOLUTE 0.00 K/mm3 (0.00-0.02); NRBC Auto 0.0 /100 WBC (0.0-0.2); Platelet Count 207 K/mm3 (150-400); RDW Coefficient Variation 15.7 % (11.7-14.2); RDW Standard Deviation 63.7 fL (35.1-46.3)
[2025-04-16 04:53] LABS: Anion Gap 5.0 mmol/L (3-11); Blood Urea Nitrogen 57.0 mg/dL (8-24); CO2, Blood 33.0 mmol/L (21-32); Calcium, Blood 9.4 mg/dL (8.5-10.1); Chloride, Blood 105.0 mmol/L (98-108); Creatinine, Blood 1.19 mg/dL (0.40-1.00); Glucose, Blood 197.0 mg/dL (70-99); Potassium, Blood 4.7 mmol/L (3.5-5.5); Sodium, Blood 138.0 mmol/L (136-145)
[2025-04-16] MEDS ORDERED: NS 250 ML IV PRN (07:35)
[2025-04-16 08:29] VITALS: BP 114/61
[2025-04-16 12:02] VITALS: BP 113/76
--- NOTE | 2025-04-16 16:23 | NUR ---
SHIFT SUMMARY PT AOX4, COOPERATIVE, ABLE TO MAKE NEEDS KNOWN. PT IS SBA TO BATHROOM FOR VOIDING. UTILIZING 4L O2 AT REST, UP TO 6L O2 WITH ACTIVITY. TOLERATING MEDICAITON. AWAITING CASE MANAGEMENT FOR TRILOGY TO [place] WITH HOME HEALTH. BED IN LOWEST POSITION, CALL LIGHT WITHIN REACH.
[2025-04-16 17:02] VITALS: BP 106/62
[2025-04-16 20:29] VITALS: BP 110/56
[2025-04-16 23:09] VITALS: BP 116/71
[2025-04-17 03:16] VITALS: BP 117/63
[2025-04-17 04:10] LABS: BASOPHILS ABSOLUTE AUTO 0.00 K/mm3 (0.00-0.23); BASOPHILS PERCENT AUTO 0 % (0-2); EOSINOPHILS ABSOLUTE AUTO 0.00 K/mm3 (0.00-0.68); EOSINOPHILS PERCENT AUTO 0 % (0-6); Hematocrit 32.9 % (33.0-51.0); Hemoglobin 10.0 g/dL (11.5-16.0); IMMATURE GRAN ABSOLUTE AUTO 0.02 K/mm3 (0.00-0.10); IMMATURE GRAN PERCENT AUTO 0 % (0-1); LYMPHOCYTES ABSOLUTE AUTO 0.13 K/mm3 (0.84-5.20); LYMPHOCYTES PERCENT AUTO 2 % (21-46); MONOCYTES ABSOLUTE AUTO 0.27 K/mm3 (0.16-1.47); MONOCYTES PERCENT AUTO 5 % (4-13); Mean Corpuscular HGB Conc 30.4 g/dL (31.5-36.5); Mean Corpuscular Volume 107 fL (80-100); NEUTROPHILS ABSOLUTE AUTO 5.55 K/mm3 (1.96-9.15); NEUTROPHILS PERCENT AUTO 93 % (41-73); NRBC ABSOLUTE 0.00 K/mm3 (0.00-0.02); NRBC Auto 0.0 /100 WBC (0.0-0.2); Platelet Count 192 K/mm3 (150-400); RDW Coefficient Variation 15.7 % (11.7-14.2); RDW Standard Deviation 61.6 fL (35.1-46.3)
--- NOTE | 2025-04-17 04:28 | NUR ---
SHIFT SUMMARY. SHIFT HAS BEEN MOSTLY UNREMARKABLE. PT AOX4, COOPERATIVE, ABLE TO MAKE NEEDS KNOWN. HAS BEEN ABLE TO REST COMFORTABLY THROUGHOUT MOST OF SHIFT. HAS BEEN VERY COMPLIANT W/ CPAP THIS SHIFT COMPARED TO PREVIOUS SHIFT WITH THIS RN. HAS BEEN ABLE TO TOLERATE WEARING SINCE 2144 W/ ONLY BRIEF AND INFREQUENT BREAKS. HAS DENIED PAIN THROUGHOUT SHIFT. VITALS HAVE REMAINED STABLE. CONTINUES TO RUN SINUS ON TELE. MAINTAINS ADEQUATE SATURATION ON 4-5 L O2 VIA NC WHEN NOT WEARING CPAP. BED LOCKED IN LOWEST POSITION. CALL LIGHT LEFT WITHIN REACH. CONTINUING TO MONITOR.
[2025-04-17 04:34] LABS: Anion Gap 6.0 mmol/L (3-11); Blood Urea Nitrogen 58.0 mg/dL (8-24); CO2, Blood 32.0 mmol/L (21-32); Calcium, Blood 9.1 mg/dL (8.5-10.1); Chloride, Blood 105.0 mmol/L (98-108); Creatinine, Blood 1.05 mg/dL (0.40-1.00); Glucose, Blood 230.0 mg/dL (70-99); Potassium, Blood 4.9 mmol/L (3.5-5.5); Sodium, Blood 138.0 mmol/L (136-145)
[2025-04-17 07:45] VITALS: BP 121/60
--- NOTE | 2025-04-17 08:00 | NUR ---
PT PLEASANT COOP THIS AM, DENIES PAIN, A/O X3. PT STATES INTENT TO D/C TO ASSIST LIVING CARE, VS HOME WITH PCU. H.R REG, NO MURMUR NOTED. PER TELE SINUS ARRHYTHMIA 50, NOW AT 60 H/R. TRACE EDEMA BLE. LUNGS LIGHT EXP WHEEZE THIS AM. ON 4L O2. BT X4 LAST BM TODAY. VIODS 1 ASST TO BATHROOM. BED IN LOW POSITION CALL LITE IN REACH, CALLS APPROP
[2025-04-17 12:21] VITALS: BP 95/60
--- NOTE | 2025-04-17 13:16 | NUR ---
PT LUNGS CLEAR WITH SOME DIM IN BASES BILAT. PT ON 4L O2, BACK FROM SHOWER AND EATING LUNCH. DENIES CURRENTS NEEDS. CALL LITE IN REACH, PT IN CHAIR EATING
[2025-04-17 14:06] VITALS: BP 116/66
[2025-04-17 16:09] VITALS: BP 119/73
--- NOTE | 2025-04-17 17:29 | NUR ---
WOUND DRESSING CHANGED MIDDAY TODAY. PT CARINA WELL. PT STATES JUST NOT FEELING LIKE EATING. ENCOURAGED PROTEIN SUPPLEMENTS BUT PT REFUSING. DISCUSSED HER PUPPY COMING TO HOSPITAL ROOM. THIS CHEERED HER UP SOME. HOWEVER, SEEMS FAMILY NOT ABLE TO BRING IN TODAY. HOPEFUL FOR LATER OR TOMORROW. STATES NOT HER DOG SEEN IN 4 MONTHS. TPN/CPN CONTINUES AT 75/HR. NO FURTHER NEW CONCERNS NOTED. BED IN LOW POSITION, CALL LITE IN REACH, CALLS APPROP
--- NOTE | 2025-04-17 17:47 | NUR ---
PT PLEASANT TODAY. DID HAVE FAMILY IN TO VISIT TODAY. SHE IS INTERESTED TO GOING HOME OR BETTER TO ASSIST LIVING . SHE STATES STEPHEN, FAMILY, WORKING ON THIS FOR HER. HOPEFUL FOR SATURDAY. LIGHT WHEEZES TODAY. ON 4L O2. DID TAKE SHOWER AND AMBULATED TO AND FROM. DID WELL. ABX PER EMAR. NO OTHER NEW CONCERNS NOTED. BED IN LOW POSITION, CALL LITE IN [facility], CALLS APPROP
[2025-04-17 20:13] VITALS: BP 109/56
[2025-04-18 01:30] VITALS: BP 111/78
[2025-04-18 04:01] VITALS: BP 116/60
[2025-04-18 04:37] LABS: BASOPHILS ABSOLUTE AUTO 0.00 K/mm3 (0.00-0.23); BASOPHILS PERCENT AUTO 0 % (0-2); EOSINOPHILS ABSOLUTE AUTO 0.00 K/mm3 (0.00-0.68); EOSINOPHILS PERCENT AUTO 0 % (0-6); Hematocrit 33.9 % (33.0-51.0); Hemoglobin 10.5 g/dL (11.5-16.0); IMMATURE GRAN ABSOLUTE AUTO 0.02 K/mm3 (0.00-0.10); IMMATURE GRAN PERCENT AUTO 0 % (0-1); LYMPHOCYTES ABSOLUTE AUTO 0.11 K/mm3 (0.84-5.20); LYMPHOCYTES PERCENT AUTO 2 % (21-46); MONOCYTES ABSOLUTE AUTO 0.27 K/mm3 (0.16-1.47); MONOCYTES PERCENT AUTO 5 % (4-13); Mean Corpuscular HGB Conc 31.0 g/dL (31.5-36.5); Mean Corpuscular Volume 106 fL (80-100); NEUTROPHILS ABSOLUTE AUTO 5.26 K/mm3 (1.96-9.15); NEUTROPHILS PERCENT AUTO 93 % (41-73); NRBC ABSOLUTE 0.00 K/mm3 (0.00-0.02); NRBC Auto 0.0 /100 WBC (0.0-0.2); Platelet Count 196 K/mm3 (150-400); RDW Coefficient Variation 15.4 % (11.7-14.2); RDW Standard Deviation 60.1 fL (35.1-46.3)
--- NOTE | 2025-04-18 04:38 | NUR ---
SHIFT SUMMARY PT A/OX4. PLEASANT AND COOPERATIVE WITH CARE. LUNG SOUNDS - SLIGHT EXP WHEEZES SCATTERED. SPEAKS IN FULL SENTENCES. NO RESP DISTRESS. PATIENT WORE BIPAP MOST OF NIGHT WITH SHORT BREAKS TO DRINK WATER. SATS WNL. PATIENT ON O2 4L/MIN WHEN OFF BIPAP. PATIENT AMBULATED TO WITH WALKER AND SBA FOR LINE MANAGEMENT. PATIENT REPORTS SHE SLEPT WELL ON BIPAP. NO OTHER ACUTE EVENTS. CALL LIGHT REMAINS IN REACH AND BED IN LOWEST POSITION.
[2025-04-18 04:56] LABS: Anion Gap 8.0 mmol/L (3-11); Blood Urea Nitrogen 58.0 mg/dL (8-24); CO2, Blood 31.0 mmol/L (21-32); Calcium, Blood 9.2 mg/dL (8.5-10.1); Chloride, Blood 105.0 mmol/L (98-108); Creatinine, Blood 1.04 mg/dL (0.40-1.00); Glucose, Blood 228.0 mg/dL (70-99); Potassium, Blood 4.9 mmol/L (3.5-5.5); Sodium, Blood 139.0 mmol/L (136-145)
[2025-04-18 07:54] VITALS: BP 107/60
[2025-04-18 08:16] VITALS: BP 111/59
--- NOTE | 2025-04-18 08:38 | NUR ---
TRANSFER NOTE: PATIENT ALERT AND ORIENTED X 4, ON 4L NC, TOLERATED BIPAP WELL THROUGH THE NIGHT, ABLE TO MAKE NEEDS KNOWN, NO ACUTE DISTRESS VSS, AFEBRILE, ONLY CONCERN FROM PATIENT IS DISCHARGE, ENDORSED TO CHECK WITH HOPSITALIST ON AM ROUNDS. PATIENT WITH GOOD APPETITE, PLEASANT AND COOPERATIVE.
--- NOTE | 2025-04-18 10:00 | NUR ---
PT'S BROTHER, STEPHEN, REQUESTED TO SPEAK TO THIS NURSE TO NOTIFY THAT HE IS PATIENT'S "LEAD SLOT TECHNICIAN" TECHNOLOGY SALES CONSULTANT AND THAT HE FEELS THAT SHE IS NOT SAFE TO RETURN HOME. HE STATES "YOU PEOPLE ALWAYS DO THIS." AND "DISCHARGE HER WHEN SHE IS NOT ABLE TO EVEN TAKE HERSELF TO THE BATHROOM." THIS NURSE STATED THAT PHYSICAL THERAPY HAS ASSESSED THIS PATIENT AND THEY RECOMMEND HOME WITH HOME HEALTH WHICH MEANS THAT PATIENT CANNOT BE SENT TO REHAB BASED ON THAT ASSESSMENT. HOWEVER, AT THE TIME OF THE PHONE CALL, THERE WAS NOT ANY ORDERS TO DISCHARGE THIS PATIENT. PT'S BROTHER STATES THAT PATIENT NEEDS ASSISTED LIVING. THIS NURSE TO PROVIDE RESOURCES TO PATIENT.
[2025-04-18 16:14] VITALS: BP 108/64
--- NOTE | 2025-04-18 17:58 | NUR ---
SHIFT SUMMARY PT AXO, PLEASANT AND COOPERATIVE WITH CARE. VSS. PT 95% ON 5L VIA NC ON CONTINUOUS PULSE OXIMETRY. PT UP TO CHAIR AND BATHROOM WITH SBA WITH GB AND FWW. AMBULATION ABOUT 200 FEET, PT TOLERATED WELL. UP TO RECLINER FOR MOST OF THE SHIFT. SEE PRIOR NOTE. IV PATENT AND SALINE LOCKED. BED IN LOW POSITION, CALL LIGHT WITHIN REACH. PT DENIES PAIN AND N/V. LAST BM CHARTED 04/18/25.
[2025-04-18 19:35] VITALS: BP 111/64
[2025-04-19 00:20] VITALS: BP 106/59
--- NOTE | 2025-04-19 03:40 | NUR ---
FUDGER CALLED TO LET THIS RN KNOW THAT PATIENT'S HR IS CONTINUALLY UNDER 55BPM WHEN SHE IS SLEEPING. SHE ASKED TO CHANGES THE PARAMETERS TO 45BPM. VERBAL OK GIVEN. EYES ON PATIENT WHO IS RESTING WITH EYES CLOSED IN BED.
[2025-04-19 03:56] VITALS: BP 113/66
--- NOTE | 2025-04-19 05:43 | NUR ---
SHIFT SUMMARY- SHIFT EVENTS- TELE ORDERED CHANGED FROM CALL RN AT 55BPM TO 45BPM WHEN PATIENT IS SLEEPING. CODE STATUS- FULL CODE NEURO- A&OX4 PLEASANT, COOPERATIVE WITH CARE. SKIN- SCATTERED BRUISING L ARM. MUSCULOSKELETAL- SBA. CARDIAC- SEE SIGNIFICANT CARDIAC HISTORY. TELE ON, SINUS DEB. TRACE EDEMA BLE. GASTRO- CONTINENT, SBA TO IN ROOM BATHROOM. CONSISTENT CARB DIET. RESPIRATORY- LUNG SOUNDS DIMINISHED/EXP WHEEZE ON 3L NC. BIPAP AT NIGHT. GENITOURARY- CONTINENT. SBA TO IN ROOM BATHROOM. . BLOOD SUGAR CHECK- AC/HS HS- 263. NO COVERAGE ADMINISTERED. SAFETY- LINES. IV SITES- IV 18G L AC. MEDICATION ADMINISTRATION- WHOLE WITH FLUID
[2025-04-19 05:52] LABS: BASOPHILS ABSOLUTE AUTO 0.00 K/mm3 (0.00-0.23); BASOPHILS PERCENT AUTO 0 % (0-2); EOSINOPHILS ABSOLUTE AUTO 0.00 K/mm3 (0.00-0.68); EOSINOPHILS PERCENT AUTO 0 % (0-6); Hematocrit 34.6 % (33.0-51.0); Hemoglobin 10.7 g/dL (11.5-16.0); IMMATURE GRAN ABSOLUTE AUTO 0.03 K/mm3 (0.00-0.10); IMMATURE GRAN PERCENT AUTO 1 % (0-1); LYMPHOCYTES ABSOLUTE AUTO 0.14 K/mm3 (0.84-5.20); LYMPHOCYTES PERCENT AUTO 2 % (21-46); MONOCYTES ABSOLUTE AUTO 0.25 K/mm3 (0.16-1.47); MONOCYTES PERCENT AUTO 4 % (4-13); Mean Corpuscular HGB Conc 30.9 g/dL (31.5-36.5); Mean Corpuscular Volume 105 fL (80-100); NEUTROPHILS ABSOLUTE AUTO 5.67 K/mm3 (1.96-9.15); NEUTROPHILS PERCENT AUTO 93 % (41-73); NRBC ABSOLUTE 0.00 K/mm3 (0.00-0.02); NRBC Auto 0.0 /100 WBC (0.0-0.2); Platelet Count 204 K/mm3 (150-400); RDW Coefficient Variation 15.4 % (11.7-14.2); RDW Standard Deviation 59.7 fL (35.1-46.3)
[2025-04-19 06:14] LABS: Anion Gap 8.0 mmol/L (3-11); Blood Urea Nitrogen 54.0 mg/dL (8-24); CO2, Blood 30.0 mmol/L (21-32); Calcium, Blood 9.5 mg/dL (8.5-10.1); Chloride, Blood 104.0 mmol/L (98-108); Creatinine, Blood 0.92 mg/dL (0.40-1.00); Glucose, Blood 243.0 mg/dL (70-99); Potassium, Blood 5.0 mmol/L (3.5-5.5); Sodium, Blood 137.0 mmol/L (136-145)
[2025-04-19 07:14] VITALS: BP 140/87
--- NOTE | 2025-04-19 09:00 | NUR ---
pt laying in bed, brother in room visiting, a/ox4, pleasant and cooperative with care, follows commands well, denies pain at this time, states she feels good, lungs are very dim with faint exp wheezing t/o, no cough noted, on 4 liters o2 at this time, no cough noted, hrr, tele in place running sr in the 60's, see strip, no to trace edema noted to b/l le, ppp faint, cap refill <3 sec, vs stable, afebrile, piv to lac site is clear and patent, bt x4, abd flat soft nontender, voids with out diff, skin c/w/d, maew, serena, call light in reach.
[2025-04-19 11:22] VITALS: BP 119/68
[2025-04-19 15:09] VITALS: BP 122/72
[2025-04-19] MEDS ORDERED: PRED20 PO (15:15)
[2025-04-19] MEDS ORDERED: NICO21TP TOP (15:16)
--- NOTE | 2025-04-19 15:57 | NUR ---
pt has been discharged to home with home health, pivs removed intact, went over discharge instructions with her, she verbalized understanding, new meds faxed to [email or web address], had a home o2 eval and will stay at 4 liters 02, left via wheelchair with document photographer in attendence.
== END 2025-04-19 15:44 | disposition home health service (06) | DRG 177 ==
LOC: ER 13:25 → ICUE 17:05 → PCU 17:05 → EDBEDREQ 17:24 → ICUE 17:51 → PCU 04-15 10:04 → MEDS 04-18 08:20
PROVIDERS: Emergency Medicine; Family Medicine; ADMIT Internal Medicine
PROC: 5A09357 Assistance with Respiratory Ventilation, Less than 24 Consecutive Hours, Continuous Positive Airway Pressure (ICD-10-PCS; principal; 2025-04-12)
PROC: 3E03329 Introduction of Other Anti-infective into Peripheral Vein, Percutaneous Approach (ICD-10-PCS; 2025-04-12)
PROC: 5A0935A Assistance with Respiratory Ventilation, Less than 24 Consecutive Hours, High Flow/Velocity Cannula (ICD-10-PCS; 2025-04-14)
DX: J15.69 Pneumonia due to other Gram-negative bacteria (principal); G92.8 Other toxic encephalopathy; J96.21 Acute and chronic respiratory failure with hypoxia; J96.22 Acute and chronic respiratory failure with hypercapnia; J44.0 Chronic obstructive pulmonary disease with (acute) lower respiratory infection; J44.1 Chronic obstructive pulmonary disease with (acute) exacerbation; E87.1 Hypo-osmolality and hyponatremia; I50.32 Chronic diastolic (congestive) heart failure; I13.0 Hypertensive heart and chronic kidney disease with heart failure and stage 1 through stage 4 chronic kidney disease, or unspecified chronic kidney disease; E11.22 Type 2 diabetes mellitus with diabetic chronic kidney disease; N18.31 Chronic kidney disease, stage 3a; Z99.81 Dependence on supplemental oxygen; E03.9 Hypothyroidism, unspecified; E78.5 Hyperlipidemia, unspecified; I27.20 Pulmonary hypertension, unspecified; F17.210 Nicotine dependence, cigarettes, uncomplicated; G47.33 Obstructive sleep apnea (adult) (pediatric); I08.1 Rheumatic disorders of both mitral and tricuspid valves; M19.90 Unspecified osteoarthritis, unspecified site; Z90.89 Acquired absence of other organs; Z96.653 Presence of artificial knee joint, bilateral; Z79.82 Long term (current) use of aspirin; Z79.890 Hormone replacement therapy; Z79.51 Long term (current) use of inhaled steroids; Z79.899 Other long term (current) drug therapy; Z71.6 Tobacco abuse counseling; Z88.5 Allergy status to narcotic agent
CPT/HCPCS: 36415; 36600; 71045; 80048; 80053; 82803; 82947; 83605; 83880; 84145; 84439; 84443; 84484; 85025; 85027; 93005; 93010; 94640; 94660; 94760; 94761; 94762; 96365; 96366; 96367; 96375; 97110; 97116; 97162; 97165; 97530; 97535; 99285-25; A9270; J0456; J0696; J1650; J1938; J2919; J3475; J7030; J7050; J7060